=== PATIENT | male | born 1950 | race Caucasian/White ===

== ENCOUNTER 2020-09-18 07:14 | Outpatient (CLI) | payer MEDICARE, SELFPAY ==
[2020-09-18 07:37] LABS: Basophils Percent Auto 0.4 % (0.2-1.2); Eosinophils Absolute Auto 0.3 K/mm3 (0-0.3); Eosinophils Percent Auto 5.1 % (0-4.4); Hematocrit 41.7 % (42.0-52.0); Hemoglobin 14.4 g/dL (14.0-18.0); Immature Granulocyte Absolute 0.01 K/mm3 (0.00-0.031); Immature Granulocyte Percent A 0.2 % (0-0.5); Lymphocytes Absolute Auto 1.66 K/mm3 (0.9-3.2); Lymphocytes Percent Auto 32.7 % (18.3-44.2); Mean Corpuscular HGB Conc 34.5 g/dl (32-36); Mean Corpuscular Volume 95.4 fl (80-100); Monocytes Absolute Auto 0.5 K/mm3 (0.1-0.6); Monocytes Percent Auto 9.1 % (2.6-8.5); Neutrophils Absolute Auto 2.7 K/mm3 (1.3-6.7); Neutrophils Percent Auto 52.5 % (45.5-73.1); Platelet Count Result 207 k/mm3 (150-375); Red Blood Count 4.37 M/mm3 (4.6-6.20); Red Cell Distribution Width 12.6 % (11.5-14.5); White Blood Count 5.1 K/mm3 (4.5-10.0)
[2020-09-18 09:53] LABS: Alanine Aminotransferase 34 U/L (4-50); Albumin Level 4.4 g/dL (3.5-5.1); Alkaline Phosphatase 76 U/L (38-126); Anion Gap 5 mmol/L (8-16); Aspartate Amino Transferase 29 U/L (17-59); Bilirubin,Total 0.6 mg/dL (0.2-1.3); Blood Urea Nitrogen 9 mg/dL (9-20); Calcium 9.4 mg/dL (8.4-10.2); Carbon Dioxide 28 mmol/L (22-30); Chloride 99 mmol/L (98-107); Cholesterol 184 mg/dL (0-200); Estimated Glomerular Filt Rate > 60; Glucose 104 mg/dL (75-110); HDL Direct 73 mg/dL; Potassium 4.6 mmol/L (3.4-5.0); Sodium 132 mmol/L (137-145); Triglycerides 100 mg/dL (<150)
[2020-09-18 10:07] LABS: LDL Cholesterol Direct 95 mg/dL
[2020-09-18 10:36] LABS: Prostate Specific Antigen 0.3 ng/mL (< OR = 4.0)
[2020-09-18 11:30] LABS: Hemoglobin A1C 5.4 % (<5.7)
== END 2020-09-18 07:15 | disposition home or self-care (01) ==
PROVIDERS: PCP Family Medicine; Visit Provider Family Medicine
DX: Z12.5 Encounter for screening for malignant neoplasm of prostate (principal); R73.03 Prediabetes; E78.5 Hyperlipidemia, unspecified; I10 Essential (primary) hypertension
CPT/HCPCS: 36415; 80053; 80061; 83036; 84153; 84443; 85025; G0103

== ENCOUNTER 2021-10-15 07:23 | Outpatient (CLI) | payer MEDICARE, SELFPAY ==
--- NOTE | ~2021-10-15 | CT_ITS ---
EXAMINATION: CT lung screening DATE: 10/15/2021 07:43 INDICATION: Personal history of nicotine dependence, current smoker with 40 to pack year history TECHNIQUE: Computed tomography (CT) of the chest was performed without intravenous contrast. The dose -length product (DLP) was 163.31 mGy-cm. Automated exposure control and iterative reconstruction tech [employer] were employed. COMPARISON: None FINDINGS: There is mild emphysema. There is a 2 mm nodule of the right upper lobe. The lungs are free of focal airspace opacities. There is no pleural effusion or pneumothorax. Changes of prior cardiac surgery are noted. The heart size is normal. There are no pathologically enlarged thoracic lymph node s. Calcified atherosclerosis is noted. There is mild thoracic spondylosis. There is a chronic appeari ng T12 compression fracture. IMPRESSION: 1. Lung-RADS category 2: Benign appearance or behavior. Continue annual screening with noncontrast lo w-dose chest CT in 12 months. Reviewed, dictated and finalized at location B. [employer] IMPRESSION: 1. Lung-RADS category 2: Benign appearance or behavior. Continue annual screeni ng with noncontrast low-dose chest CT in 12 months.
== END 2021-10-15 07:24 | disposition home or self-care (01) ==
LOC: ANHIMG 07:26
PROVIDERS: PCP Family Medicine; Visit Provider Family Medicine
DX: Z12.2 Encounter for screening for malignant neoplasm of respiratory organs (principal); Z87.891 Personal history of nicotine dependence
CPT/HCPCS: 71271

== ENCOUNTER 2021-11-06 06:45 | Outpatient (CLI) | payer MEDICARE, SELFPAY ==
--- NOTE | ~2021-11-06 | MR_ITS ---
EXAMINATION: MR thoracic spine wo con EXAM DATE: 11/06/2021 07:48 INDICATION: Parkinson's Disease,Hx Of Spinal Core Injury TECHNIQUE: Multi-sequential, multiplanar MR images of the thoracic spine were obtained without contra st. Sagittal T1, T2, T2 fat saturation, axial T2 weighted images reviewed. There is no prior study for comparison. FINDINGS: There is moderate to severe C6-7 disc disease, moderate at C5-6. There are small thoracic Schmorl's nodes with overall disc height and vertebral bodies relatively well-maintained except for t he mild chronic T12 compression fracture with anterior wedging. There is a moderate size hemangioma w ithin the T6 vertebral body. Thoracic central canal and neural foramen are widely patent. The spinal cord signal intensity and intrinsic morphology is normal. There is mild to moderate facet arthropathy . Paraspinal soft tissue is unremarkable. IMPRESSION: 1. Mild to moderate thoracic facet arthropathy. 2. Mild T12 anterior wedging. 3. Normal thoracic cord signal. Reviewed, dictated and finalized at location B.
--- NOTE | ~2021-11-06 | MR_ITS ---
EXAMINATION: MR brain/brain stem wo con DATE: 11/06/2021 07:48 INDICATION: Parkinson's disease. TECHNIQUE: Magnetic resonance imaging (MRI) of the brain and brainstem was performed without intraven ous contrast. Sequences included sagittal and axial T1-weighted FSE, axial diffusion-weighted FS EPI, axial T2*-weighted GRE, axial T2-weighted FLAIR Propeller, and axial T2-weighted Propeller. Apparent diffusion coefficient (ADC) maps were created. COMPARISON: Brain MRI 04/13/2019, head CT 04/11/2019 FINDINGS: There is an old infarct in right cerebellum. There are foci of old blood products in the de ep white matter of left frontal lobe. There are scattered areas of nonspecific increased T2-weighted signal intensity in the cerebral white matter. There is no intracranial hemorrhage, acute infarction, or abnormal intracranial mass lesion. The ventricles are normal in size. There is mild mucosal thick ening in the paranasal sinuses. The orbits are normal. There is a trace left mastoid effusion. IMPRESSION: 1. 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 2. Stable mild nonspecific cerebral white matter disease, which likely represents chronic small vesse l ischemic disease. Reviewed, dictated and finalized at location A. IMPRESSION: 1. 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 2. Stable mild nonspecific cerebral white matter disease, which likely represen ts chronic small vessel ischemic disease.
== END 2021-11-06 06:46 | disposition home or self-care (01) ==
PROVIDERS: PCP Family Medicine; Visit Provider Nurse Practitioner Gerontology
DX: Z87.828 Personal history of other (healed) physical injury and trauma (principal); M47.894 Other spondylosis, thoracic region; M48.54XA Collapsed vertebra, not elsewhere classified, thoracic region, initial encounter for fracture; Z86.73 Personal history of transient ischemic attack (TIA), and cerebral infarction without residual deficits; R90.82 White matter disease, unspecified
CPT/HCPCS: 70551; 72146

== ENCOUNTER 2021-12-28 11:47 | Emergency (ER) | payer MEDICARE, SELFPAY ==
--- NOTE | ~2021-12-28 | XR_ITS ---
XR chest 1V portable 12/28/2021 12:39 Indication: Weakness and shortness of breath Procedure: AP portable chest Comparison: 04/11/2019 Findings: There is chronic scarring in the left lower lung. The lungs are hyperinflated which is cons istent with, but not diagnostic of chronic obstructive pulmonary disease. Status post median sternoto my for CABG. No focal air space disease, pulmonary edema, pleural effusion or suspected pneumothorax. Impression: 1: No acute cardiopulmonary disease. Reviewed, dictated and finalized at location B. Impression: 1: No acute cardiopulmonary disease.
[2021-12-28 11:54] VITALS: BP 155/77; PULSE 73; RESP 18; TEMP 37.1; O2SAT 100
--- NOTE | 2021-12-28 12:28 | ECG_ITS ---
Measurements Intervals [place] Rate: 65 P: 17 PA: 161 QRS: -17 QRSD: 99 T: 67 QT: 402 QTc: 419 Interpretive Statements SINUS RHYTHM INCOMPLETE RIGHT BUNDLE BRANCH BLOCK CONSIDER INFERIOR INFARCT, AGE INDETERMINATE BORDERLINE ST-T WAVE ABNORMALITY- HIGH LATERAL LEADS BASELINE ARTIFACT- I, II, III, AVR, AVL, AVF, V1-V6 ABNORMAL ECG Electronically Signed On 12-28-2021 13:05:19 CDT by Carter Fair D.O.
[2021-12-28 13:07] LABS: Alanine Aminotransferase 22 U/L (6-50); Albumin Level 4.4 g/dL (3.5-5.1); Alkaline Phosphatase 68 U/L (38-126); Anion Gap 9 mmol/L (8-16); Aspartate Amino Transferase 27 U/L (17-59); Bilirubin,Total 0.4 mg/dL (0.2-1.3); Blood Urea Nitrogen 12 mg/dL (9-20); Carbon Dioxide 25 mmol/L (22-30); Chloride 95 mmol/L (98-107); Estimated CRCL calculation 66 ml/min; Estimated Glomerular Filt Rate > 60; Glucose 104 mg/dL (65-110); Potassium 4.6 mmol/L (3.4-5.0); Sodium 129 mmol/L (137-145)
[2021-12-28 13:14] LABS: Basophils Percent Auto 0.3 % (0.2-1.2); Eosinophils Absolute Auto 0.1 K/mm3 (0-0.3); Eosinophils Percent Auto 1.7 % (0-4.4); Hematocrit 37.9 % (42.0-52.0); Hemoglobin 13.3 g/dL (14.0-18.0); Immature Granulocyte Absolute 0.03 K/mm3 (0.00-0.031); Immature Granulocyte Percent A 0.5 % (0-0.5); Lymphocytes Absolute Auto 0.81 K/mm3 (0.9-3.2); Lymphocytes Percent Auto 13.8 % (18.3-44.2); Mean Corpuscular HGB Conc 35.1 g/dl (32-36); Mean Corpuscular Hemoglobin 34.1 pg (26-34); Mean Corpuscular Volume 97.2 fl (80-100); Mean Platelet Volume 10.2 fl (7.4-10.4); Monocytes Absolute Auto 0.5 K/mm3 (0.1-0.6); Monocytes Percent Auto 8.7 % (2.6-8.5); Neutrophils Absolute Auto 4.4 K/mm3 (1.3-6.7); Platelet Count Result 185 k/mm3 (150-375); Red Cell Distribution Width 12.5 % (11.5-14.5); White Blood Count 5.9 K/mm3 (4.5-10.0)
--- NOTE | 2021-12-28 13:38 | ED.GENADULT ---
HPI - General Adult General Chief complaint: Weakness Stated complaint: GEN WEAKNESS Time Seen by Provider: 12/28/21 13:36 Source: patient and family Limitations: no limitations History of Present Illness HPI narrative: Patient is 71 years old white male, history of parkinsonism came to the ED by ambulance because of increased frequency of fall in the last few days. Patient had similar history. His neurologist referred him to another specialist of movement disorder who started him on new medication 3 weeks ago called KIM.. Patient denies any injury or any symptoms at this time. He denies any fever, chills, nausea, vomiting, headache, back pain, abdominal pain, chest pain, shortness of breath, nausea or vomiting. Related Data Home Medications Medication Instructions Recorded Confirmed fluticasone propionate 50 2 spray INTRANASAL DAILY 09/13/20 09/18/21 mcg/actuation nasal spray,suspension aspirin [Baby Aspirin] 12/28/21 12/28/21 carbidopa-levodopa [Rytary] cap PO 12/28/21 12/28/21 escitalopram oxalate mg 12/28/21 loratadine 12/28/21 ropinirole mg 12/28/21 Allergies Allergy/AdvReac Type Severity Reaction Status Date / Time carbidopa AdvReac Mild Other Verified 12/28/21 12:00 levodopa AdvReac Mild other Verified 12/28/21 12:00 Review of Systems Review of Systems: All systems reviewed & are unremarkable except as noted in HPI and below PMFSH Past Medical History Medical History Anxiety BPH w/o urinary obs/LUTS CAD in [place] artery Depression Dyslipidemia Environmental allergies Essential (primary) hypertension PAD (peripheral artery disease) Parkinson disease Prediabetes Surgical History Surgical History History of angioplasty of peripheral vessel 2016 -stents in left common iliac artery LLE History of coronary artery bypass graft 2013 History of tonsillectomy Social History Social History Smoking status: Current some day smoker Smoking end date: 08/11/16 Alcohol intake: current Substance use: never Substance use type: does not use Exam Narrative: General appearance: Well-developed, well-nourished Skin: Normal color Head: Normocephalic, nontraumatic Eyes: Clear conjunctiva ENT: Oropharynx normal, ears normal, nose normal Neck: Supple, nontender Chest and respiratory: Airway patent, no respiratory distress, no accessory muscle use Heart: Regular rate/rhythm Abdomen: Soft, nontender, no organomegaly, quiet bowel sounds Vascular: Normal peripheral pulses, normal capillary refill. Musculoskeletal: Stationary tremors Neurologic: Alert and oriented ?3, tremors Course Course Emergency Course: Medication induced movement disorder that is my concern. Vital Signs Vital signs: Vital Signs Temperature 37.1 C 12/28/21 11:54 Pulse Rate 73 12/28/21 11:54 Respiratory Rate 18 12/28/21 11:54 Blood Pressure 155/77 H 12/28/21 11:54 Pulse Oximetry 100 12/28/21 11:54 Temperature 37.1 C 12/28/21 11:54 Pulse Rate 73 12/28/21 11:54 Respiratory Rate 18 12/28/21 11:54 Blood Pressure 155/77 H 12/28/21 11:54 Pulse Oximetry 100 12/28/21 11:54 Medical Decision Making Differential Diagnosis Differential Diagnosis: Electrolyte imbalance, urinary tract infection, intracranial pathology, medication induced movement disorders, advancing parkinsonism Vital Signs Vital Signs: Vital Signs Temperature 37.1 C 12/28/21 11:54 Pulse Rate 73 12/28/21 11:54 Respiratory Rate 18 12/28/21 11:54 Blood Pressure 155/77 H 12/28/21 11:
[2021-12-28 13:55] LABS: Add Urine Microscopic? NO; Appearance Urine Clear (Clear); Bilirubin Urine Negative (Negative); Blood Urine Negative (Negative); Color Urine Yellow (Yellow); Glucose Urine UA Negative (Negative); Ketones Urine Negative (Negative); Leukocyte Esterase Ur Negative LEU/UL (Negative); Nitrate Urine Negative (Negative); Protein Urine Negative (Negative); Specific Grav Ur 1.015 (1.001-1.035); Urobilinogen Urine 0.2 mg/dL (<2.0)
== END 2021-12-28 15:44 | disposition home or self-care (01) ==
PROVIDERS: General Practice; Emergency Provider Emergency Medicine; PCP Family Medicine
DX: G20 Parkinson's disease (principal); I25.10 Atherosclerotic heart disease of native coronary artery without angina pectoris; E78.5 Hyperlipidemia, unspecified; I10 Essential (primary) hypertension; I73.9 Peripheral vascular disease, unspecified; N40.0 Benign prostatic hyperplasia without lower urinary tract symptoms; R73.03 Prediabetes; F41.9 Anxiety disorder, unspecified; Z95.5 Presence of coronary angioplasty implant and graft; Z95.1 Presence of aortocoronary bypass graft; Z87.891 Personal history of nicotine dependence; I45.10 Unspecified right bundle-branch block; R94.31 Abnormal electrocardiogram [ECG] [EKG]; Z79.82 Long term (current) use of aspirin
CPT/HCPCS: 36415; 71045; 80053; 81003; 85025; 93005; 99283

== ENCOUNTER 2022-03-19 10:50 | Outpatient (CLI) | payer MEDICARE, SELFPAY ==
[2022-03-19 19:27] LABS: Alanine Aminotransferase 32 U/L (6-50); Albumin Level 4.9 g/dL (3.5-5.1); Alkaline Phosphatase 77 U/L (38-126); Anion Gap 9 mmol/L (8-16); Aspartate Amino Transferase 39 U/L (17-59); Bilirubin,Total 0.6 mg/dL (0.2-1.3); Blood Urea Nitrogen 12 mg/dL (9-20); Carbon Dioxide 28 mmol/L (22-30); Chloride 93 mmol/L (98-107); Estimated Glomerular Filt Rate > 60; Glucose 84 mg/dL (65-110); Potassium 4.4 mmol/L (3.4-5.0); Sodium 130 mmol/L (137-145)
== END 2022-03-19 10:51 | disposition home or self-care (01) ==
LOC: ANHGOSHLAB 10:52
PROVIDERS: PCP Family Medicine; Visit Provider Family Medicine
DX: E78.5 Hyperlipidemia, unspecified (principal); G20 Parkinson's disease; I10 Essential (primary) hypertension
CPT/HCPCS: 36415; 80053

== ENCOUNTER 2022-07-19 16:08 | Outpatient (CLI) | payer MEDICARE, SELFPAY ==
[2022-07-19 16:55] LABS: Influenza A QL RT-PCR Negative (Negative); Influenza B QL RT-PCR Negative (Negative); RSV RNA, RT-PCR Negative (Negative); SARS-CoV-2 RNA PCR Positive
== END 2022-07-19 16:09 | disposition home or self-care (01) ==
LOC: ANHLAB 16:09
PROVIDERS: PCP Family Medicine; Visit Provider Nurse Practitioner
DX: U07.1 COVID-19 (principal); R68.89 Other general symptoms and signs
CPT/HCPCS: 87637

== ENCOUNTER 2023-01-20 08:01 | Outpatient (CLI) | payer MEDICARE, SELFPAY ==
--- NOTE | ~2023-01-20 | US_ITS ---
EXAMINATION: US art doppler w press LE BI DATE: 01/20/2023 08:39 INDICATION: Peripheral arterial disease. TECHNIQUE: Segmental pressures and plethysmographic and Doppler waveforms of the brachial and lower e xtremity arteries were obtained. COMPARISON: Arterial Doppler and segmental pressures 02/09/2016 FINDINGS: Right and left brachial artery pressures of 149 mm Hg and 153 mm Hg, respectively, are concordant (no rmal difference <= 30 mmHg). The right thigh and below-knee pressures were not measured. The right ankle-brachial index (EUGENE) is 0 .71 (normal >= 0.9-1.0). The right great toe-brachial index (TBI) is 0.58 (normal >= 0.65). Arterial Doppler waveforms are at least triphasic in common femoral artery and biphasic from superficial femor al artery to the ankle. The left thigh and below-knee pressures were not measured. The left EUGENE is 0.74. The left TBI is 0.39 . Arterial Doppler waveforms are biphasic from common femoral artery to the ankle. IMPRESSION: 1. Moderately decreased ABIs with interval worsening on the right and improvement on the left, consis tent with arterial occlusive disease. Reviewed, dictated and finalized at location A. IMPRESSION: 1. Moderately decreased ABIs with interval worsening on the right and improveme nt on the left, consistent with arterial occlusive disease.
== END 2023-01-20 08:02 | disposition home or self-care (01) ==
LOC: ANHIMG 08:06
PROVIDERS: PCP Family Medicine; Visit Provider Internal Medicine Cardiovascular Disease
DX: I73.9 Peripheral vascular disease, unspecified (principal)
CPT/HCPCS: 93923

== ENCOUNTER 2023-09-18 09:57 | Outpatient (CLI) | payer MEDICARE, SELFPAY ==
[2023-09-18 10:40] LABS: Basophils Percent Auto 0.3 % (0.2-1.2); Eosinophils Absolute Auto 0.2 K/mm3 (0-0.3); Eosinophils Percent Auto 2.7 % (0-4.4); Hematocrit 38.2 % (42.0-52.0); Immature Granulocyte Absolute 0.02 K/mm3 (0.00-0.031); Immature Granulocyte Percent A 0.3 % (0-0.5); Lymphocytes Absolute Auto 1.28 K/mm3 (0.9-3.2); Lymphocytes Percent Auto 19.5 % (18.3-44.2); Mean Corpuscular Hemoglobin 33.2 pg (26-34); Mean Corpuscular Volume 97.4 fl (80-100); Mean Platelet Volume 10.1 fl (7.4-10.4); Monocytes Absolute Auto 0.5 K/mm3 (0.1-0.6); Monocytes Percent Auto 7.6 % (2.6-8.5); Neutrophils Absolute Auto 4.6 K/mm3 (1.3-6.7); Neutrophils Percent Auto 69.6 % (45.5-73.1); Platelet Count Result 184 k/mm3 (150-375); Red Blood Count 3.92 M/mm3 (4.6-6.20); Red Cell Distribution Width 12.9 % (11.5-14.5); White Blood Count 6.6 K/mm3 (4.5-10.0)
[2023-09-18 10:47] LABS: Appearance Urine Cloudy (Clear); Bacteria Urine 4+ /hpf; Bilirubin Urine Negative (Negative); Blood Urine Negative (Negative); Color Urine Yellow (Yellow); Glucose Urine UA Negative (Negative); Ketones Urine Trace mg/dL (Negative); Leukocyte Esterase Ur 2+ LEU/UL (Negative); Nitrate Urine Positive (Negative); Non Pathogenic Casts 0-2; Protein Urine Negative (Negative); RBC Urine 0-2 /hpf (0-2); Specific Grav Ur 1.019 (1.001-1.035); Squamous Epithelial Cell Urine None seen /hpf (Few); WBC Urine 51-100 /hpf; pH Urine 6.5 (5.0-9.0)
[2023-09-18 10:51] LABS: Alanine Aminotransferase 19 U/L (6-50); Albumin Level 4.1 g/dL (3.5-5.1); Alkaline Phosphatase 86 U/L (38-126); Anion Gap 6 mmol/L (8-16); Aspartate Amino Transferase 29 U/L (17-59); Bilirubin,Total 0.6 mg/dL (0.2-1.3); Blood Urea Nitrogen 13 mg/dL (9-20); Carbon Dioxide 28 mmol/L (22-30); Chloride 92 mmol/L (98-107); Cholesterol 140 mg/dL (0-200); Estimated Glomerular Filt Rate > 60; Glucose 94 mg/dL (65-110); HDL Direct 75 mg/dL; Potassium 4.4 mmol/L (3.4-5.0); Sodium 126 mmol/L (137-145); Triglycerides 195 mg/dL (<150)
[2023-09-18 10:58] LABS: Hemoglobin A1C 5.6 % (<5.7)
[2023-09-18 11:00] LABS: Add Urine Microscopic? YES
[2023-09-18 11:01] LABS: LDL Cholesterol Direct 54 mg/dL
[2023-09-18 11:21] LABS: Prostate Specific Antigen 0.9 ng/mL (< OR = 4.0)
[2023-09-18 11:25] LABS: Vitamin D 25 Hydroxy 42.8 ng/mL
[2023-09-18 11:38] LABS: Thyroid Stimulating Hormone Reflex 0.772 uIU/mL (0.465-4.68)
== END 2023-09-18 09:58 | disposition home or self-care (01) ==
LOC: ANHLAB 10:02
PROVIDERS: PCP Family Medicine; Visit Provider Family Medicine
DX: E53.8 Deficiency of other specified B group vitamins (principal); Z12.5 Encounter for screening for malignant neoplasm of prostate; I10 Essential (primary) hypertension; E78.5 Hyperlipidemia, unspecified; R73.03 Prediabetes; F32.9 Major depressive disorder, single episode, unspecified; R41.89 Other symptoms and signs involving cognitive functions and awareness; E55.9 Vitamin D deficiency, unspecified; R30.0 Dysuria
CPT/HCPCS: 36415; 80053; 80061; 81001; 82306; 82607; 83036; 84153; 84443; 85025; 87086; G0103

== ENCOUNTER 2023-10-24 16:20 | Outpatient (CLI) | payer MEDICARE, SELFPAY ==
--- NOTE | ~2023-10-24 | US_ITS ---
EXAMINATION: US carotid duplex BI DATE: 10/24/2023 18:46 INDICATION: History of stroke TECHNIQUE: Grayscale, color Doppler, and pulsed Doppler images of the cervical carotid arteries were obtained. The degree of vessel stenosis is placed in one of the following categories: normal, <50%, 5 0-69%, >=70% but less than near-occlusion, near-occlusion, or total occlusion. Note that percent sten osis relative to normal distal artery lumen diameter is indirectly measured from velocity measurement s as described by Wilver, et al. Radiology 2003; 229:340-346. Notes: Normal: Peak systolic velocity <125 centimeters/sec and no plaque <50%. Peak systolic velocity <125 ( EDV <40; ICA/CCA PSV ratio <2.0; used these factors only a tandem lesions or low cardiac output or co ntralateral disease) 50-69 %: PSV 125-230 (EDV 40-100; ratio 2-4) >= 70% but less than near occlusion: PSV greater than 230 (EDV > 100; ratio> 4.0) Near Occlusion: PSV that is variable; markedly narrowed lumen Occlusion: Absent flow on color/spectral Doppler and no lumen on castillo scale. COMPARISON: Ultrasound dated 04/13/2019. FINDINGS: RIGHT: The right common carotid artery (CCA) peak systolic velocity (PSV) is 96 cm/s. The right internal car otid artery (ICA) PSV is 87 cm/s. The right ICA end-diastolic velocity (EDV) is 17 cm/s. The right IC A/CCA PSV ratio is 1.2. The external carotid artery (ECA) PSV is 151 cm/s. There is antegrade flow in the right vertebral artery. LEFT: The left CCA PSV is 71 cm/s. The left ICA PSV is 85 cm/s. The left ICA EDV is 18 cm/s. The left ICA/C CA PSV ratio is 1.6. The ECA PSV is 251 cm/s. There is antegrade flow in the left vertebral artery. IMPRESSION: 1. Less than 50% stenosis in the right internal carotid artery by sonographic criteria. 2. Less than 50% stenosis in the left internal carotid artery by sonographic criteria. Reviewed, dictated and finalized at location A. IMPRESSION: 1. Less than 50% stenosis in the right internal carotid artery by sonographic c loc. 2. Less than 50% stenosis in the left internal carotid artery by sonographic craig ayoub.
== END 2023-10-24 16:21 | disposition home or self-care (01) ==
PROVIDERS: PCP Family Medicine; Visit Provider Nurse Practitioner Gerontology
DX: I65.23 Occlusion and stenosis of bilateral carotid arteries (principal); Z86.73 Personal history of transient ischemic attack (TIA), and cerebral infarction without residual deficits
CPT/HCPCS: 93880

== ENCOUNTER 2023-10-28 06:46 | Outpatient (CLI) | payer MEDICARE, SELFPAY ==
--- NOTE | ~2023-10-28 | MR_ITS ---
EXAMINATION: MRA neck wo/w con DATE: 10/28/2023 07:59 INDICATION: Stroke. Dizziness and giddiness. TECHNIQUE: Magnetic resonance angiography (MRA) of the neck was performed without and with 19 mL Mult ihance intravenous contrast. Sequences included axial 2D-time of flight T1-weighted FSPGR and coronal T1-weighted FSPGR without and with intravenous contrast. COMPARISON: None. FINDINGS: There is small amount of atherosclerosis but with 0% stenosis of the right carotid bulb relative to n ormal distal artery lumen diameter (NASCET criteria). There is 40% stenosis of the left carotid bulb relative to normal distal artery lumen diameter. IMPRESSION: 1. Small amount of atherosclerotic plaque with 0% stenosis of the right carotid bulb relative to norm al distal artery lumen diameter (NASCET criteria). 2. 40% stenosis of the left carotid bulb relative to normal distal artery lumen diameter. Reviewed, dictated and finalized at location A. IMPRESSION: 1. Small amount of atherosclerotic plaque with 0% stenosis of the right carotid bulb relative to normal distal artery lumen diameter (NASCET criteria). 2. 40% stenosis of the left carotid bulb relative to normal distal artery lumen diameter.
--- NOTE | ~2023-10-28 | MR_ITS ---
MRA HEAD History: Dizziness Technique: 3D time of flight MRA of the head is performed. Findings: The right and left distal vertebral arteries and the basilar and posterior cerebral arterie s are normal. Right and left distal internal carotid arteries and anterior and middle cerebral arteri es are normal. There is no aneurysm, stenosis, or occlusion. Impression: No occlusion, stenosis, or aneurysm. Reviewed, dictated and finalized at location . Impression: No occlusion, stenosis, or aneurysm.
== END 2023-10-28 06:47 | disposition home or self-care (01) ==
PROVIDERS: PCP Family Medicine; Visit Provider Nurse Practitioner Gerontology
DX: I65.22 Occlusion and stenosis of left carotid artery (principal); R40.4 Transient alteration of awareness; Z86.73 Personal history of transient ischemic attack (TIA), and cerebral infarction without residual deficits
CPT/HCPCS: 70544; 70549; A9577

== ENCOUNTER 2023-12-22 13:22 | Outpatient (CLI) | payer MEDICARE, SELFPAY ==
[2023-12-22 14:24] LABS: Basophils Percent Auto 0.5 % (0.2-1.2); Eosinophils Absolute Auto 0.2 K/mm3 (0-0.3); Eosinophils Percent Auto 3.2 % (0-4.4); Hematocrit 38.8 % (42.0-52.0); Hemoglobin 13.2 g/dL (14.0-18.0); Immature Granulocyte Absolute 0.02 K/mm3 (0.00-0.031); Immature Granulocyte Percent A 0.3 % (0-0.5); Lymphocytes Absolute Auto 1.74 K/mm3 (0.9-3.2); Lymphocytes Percent Auto 26.5 % (18.3-44.2); Mean Corpuscular Hemoglobin 32.9 pg (26-34); Mean Corpuscular Volume 96.8 fl (80-100); Mean Platelet Volume 10.5 fl (7.4-10.4); Monocytes Absolute Auto 0.5 K/mm3 (0.1-0.6); Monocytes Percent Auto 8.2 % (2.6-8.5); Neutrophils Percent Auto 61.3 % (45.5-73.1); Platelet Count Result 189 k/mm3 (150-375); Red Blood Count 4.01 M/mm3 (4.6-6.20); Red Cell Distribution Width 12.2 % (11.5-14.5); White Blood Count 6.6 K/mm3 (4.5-10.0)
[2023-12-22 14:39] LABS: Alanine Aminotransferase 9 U/L (6-50); Albumin Level 4.5 g/dL (3.5-5.1); Alkaline Phosphatase 65 U/L (38-126); Anion Gap 7 mmol/L (4-12); Aspartate Amino Transferase 24 U/L (17-59); Bilirubin,Total 0.6 mg/dL (0.2-1.3); Blood Urea Nitrogen 13 mg/dL (9-20); Calcium 9.4 mg/dL (8.4-10.2); Carbon Dioxide 26 mmol/L (22-30); Chloride 96 mmol/L (98-107); Estimated Glomerular Filt Rate > 60; Glucose 91 mg/dL (65-110); Potassium 4.3 mmol/L (3.4-5.0); Sodium 129 mmol/L (137-145)
== END 2023-12-22 13:23 | disposition home or self-care (01) ==
LOC: ANHLAB 13:24
PROVIDERS: PCP Family Medicine; Visit Provider Internal Medicine Cardiovascular Disease
DX: Z01.812 Encounter for preprocedural laboratory examination (principal); I25.10 Atherosclerotic heart disease of native coronary artery without angina pectoris; I73.9 Peripheral vascular disease, unspecified
CPT/HCPCS: 36415; 80053; 85025

== ENCOUNTER 2024-04-01 10:59 | Outpatient (CLI) | payer MEDICARE, SELFPAY ==
--- NOTE | ~2024-04-01 | XR_ITS ---
EXAM: XR shoulder LT min 2V DATE: 04/01/2024 11:32 HISTORY: M25.512 - Pain in left shoulder . COMPARISON: None available. FINDINGS: Normal mineralization. No fracture or dislocation. No lytic or blastic lesion. Mild AC reynaldo nt and mild glenohumeral joint degenerative change. No erosion or periosteal change. Soft tissues wit hin normal limits. Basilar calcifications. Calcification at the base of the glenoid labrum/biceps anc hor. IMPRESSION: Mild polyarticular left shoulder osteoarthritis. Reviewed, dictated and finalized at location K.
--- NOTE | ~2024-04-01 | XR_ITS ---
EXAMINATION: XR ribs LT 2V w CXR 2V DATE: 04/01/2024 11:31 INDICATION: Pleurodynia. TECHNIQUE: Frontal and lateral views of the chest and 2 views on 3 radiographs of the left ribs were obtained. COMPARISON: Chest view 12/28/2021 FINDINGS: CHEST TWO VIEWS: There is mild striated scarring in left mid and lower lung zones. There is no pneumo taya, pleural effusion, or pneumothorax. The heart size is normal. Median sternotomy wires and mediast inal surgical clips are seen, likely from prior coronary artery bypass grafting. LEFT RIBS: There is no rib fracture. IMPRESSION: 1. No rib fracture. 2. Chronic mild striated scarring in left mid and lower lung zones. Reviewed, dictated and finalized at location A.
== END 2024-04-01 11:00 ==
PROVIDERS: PCP Family Medicine; Visit Provider Family Medicine
DX: R07.81 Pleurodynia (principal); R91.8 Other nonspecific abnormal finding of lung field; M19.012 Primary osteoarthritis, left shoulder; M25.512 Pain in left shoulder
CPT/HCPCS: 71046; 71100; 73030

== ENCOUNTER 2024-04-05 10:54 | Outpatient (CLI) | payer MEDICARE, SELFPAY | END 2024-04-05 10:55 | disposition home or self-care (01) | LOC: ANHLAB 10:57 | PROVIDERS: PCP Family Medicine; Visit Provider Family Medicine | DX: N39.0 Urinary tract infection, site not specified (principal) | CPT/HCPCS: 87086 ==

== ENCOUNTER 2024-05-24 09:48 | Outpatient (CLI) | payer MEDICARE, SELFPAY ==
[2024-05-24 10:16] LABS: Basophils Percent Auto 0.5 % (0.2-1.2); Eosinophils Absolute Auto 0.2 K/mm3 (0-0.3); Eosinophils Percent Auto 2.6 % (0-4.4); Hematocrit 40.2 % (42.0-52.0); Hemoglobin 13.9 g/dL (14.0-18.0); Immature Granulocyte Absolute 0.02 K/mm3 (0.00-0.031); Immature Granulocyte Percent A 0.3 % (0-0.5); Lymphocytes Absolute Auto 1.08 K/mm3 (0.9-3.2); Lymphocytes Percent Auto 16.8 % (18.3-44.2); Mean Corpuscular HGB Conc 34.6 g/dl (32-36); Mean Corpuscular Hemoglobin 33.5 pg (26-34); Mean Corpuscular Volume 96.9 fl (80-100); Mean Platelet Volume 10.4 fl (7.4-10.4); Monocytes Absolute Auto 0.5 K/mm3 (0.1-0.6); Neutrophils Absolute Auto 4.7 K/mm3 (1.3-6.7); Neutrophils Percent Auto 72.8 % (45.5-73.1); Platelet Count Result 174 k/mm3 (150-375); Red Blood Count 4.15 M/mm3 (4.6-6.20); Red Cell Distribution Width 12.4 % (11.5-14.5); White Blood Count 6.4 K/mm3 (4.5-10.0)
[2024-05-24 10:30] LABS: Alanine Aminotransferase 6 U/L (6-50); Albumin Level 4.5 g/dL (3.5-5.1); Alkaline Phosphatase 66 U/L (38-126); Anion Gap 8 mmol/L (4-12); Aspartate Amino Transferase 20 U/L (17-59); Bilirubin,Total 0.8 mg/dL (0.2-1.3); Blood Urea Nitrogen 12 mg/dL (9-20); Calcium 9.3 mg/dL (8.4-10.2); Carbon Dioxide 28 mmol/L (22-30); Chloride 95 mmol/L (98-107); Cholesterol 141 mg/dL (0-200); Estimated Glomerular Filt Rate > 60; Glucose 102 mg/dL (65-110); HDL Direct 67 mg/dL; Potassium 4.2 mmol/L (3.4-5.0); Sodium 131 mmol/L (137-145); Triglycerides 105 mg/dL (<150)
[2024-05-24 10:33] LABS: Hemoglobin A1C 5.7 % (<5.7)
[2024-05-24 10:40] LABS: LDL Cholesterol Direct 44 mg/dL
[2024-05-24 11:00] LABS: Prostate Specific Antigen 1.3 ng/mL (< OR = 4.0)
[2024-05-24 11:02] LABS: Vitamin D 25 Hydroxy 37.7 ng/mL
[2024-05-24 11:15] LABS: Thyroid Stimulating Hormone Reflex 0.892 uIU/mL (0.465-4.68)
== END 2024-05-24 09:49 | disposition home or self-care (01) ==
LOC: ANHLAB 09:54
PROVIDERS: PCP Family Medicine; Visit Provider Family Medicine
DX: G20.A1 Parkinson's disease without dyskinesia, without mention of fluctuations (principal); E55.9 Vitamin D deficiency, unspecified; E53.8 Deficiency of other specified B group vitamins; I10 Essential (primary) hypertension; E78.5 Hyperlipidemia, unspecified; R73.9 Hyperglycemia, unspecified; Z12.5 Encounter for screening for malignant neoplasm of prostate; Z00.00 Encounter for general adult medical examination without abnormal findings
CPT/HCPCS: 36415; 80053; 80061; 82306; 82607; 83036; 84153; 84443; 85025; G0103

== ENCOUNTER 2024-07-06 11:15 | Emergency (ER) | payer MEDICARE, SELFPAY ==
[2024-07-06] VITALS (7 sets, daily range): BP systolic 109–143; BP diastolic 67–91; PULSE 52–67; RESP 12–20; TEMP 36.7; O2SAT 98–100
--- NOTE | ~2024-07-06 | XR_ITS ---
EXAMINATION: XR chest 2V DATE: 07/06/2024 12:28 INDICATION: Shortness of breath TECHNIQUE: frontal and lateral views of the chest were obtained. COMPARISON: Chest radiograph dated 04/01/[address] dated 10/15/2021 FINDINGS: Chronic linear opacities at the left lower lung zone at the medial right lung base consistent with ch ronic atelectasis/scarring. No new airspace opacities, pulmonary edema, pleural effusion or pneumotho rax. The cardiomediastinal silhouette is normal. Median sternotomy wires and mediastinal surgical cli ps are seen, likely from prior coronary artery bypass grafting. IMPRESSION: 1. Stable appearance of chronic linear discoid atelectasis/scarring at the bilateral lower lung zones , left greater than right. No acute cardiopulmonary disease. Reviewed, dictated and finalized at location A. AL THERAPIST IMPRESSION: 1. Stable appearance of chronic linear discoid atelectasis/scarring at the bila teral lower lung zones, left greater than right. No acute cardiopulmonary disea se.
--- NOTE | 2024-07-06 11:23 | ECG_ITS ---
Test Date: 2024-07-06 11:22:14 Measurements Intervals [place] Rate: 66 P: 0 AK: 0 QRS: -7 QRSD: 94 T: 62 QT: 400 QTc: 420 Interpretive Statements SINUS RHYTHM INCOMPLETE RIGHT BUNDLE BRANCH BLOCK BORDERLINE ST-T WAVE ABNORMALITY- HIGH LATERAL LEADS BASELINE ARTIFACT- I, II, III, AVR, AVL, AVF, V1-V6 BORDERLINE ECG No previous ECG available for comparison Electronically Signed On 07-06-2024 16:23:04 MOLDER by Carter Fair D.O.
[2024-07-06 12:57] LABS: Basophils Percent Auto 0.2 % (0.2-1.2); Eosinophils Absolute Auto 0.2 K/mm3 (0-0.3); Eosinophils Percent Auto 3.9 % (0-4.4); Hematocrit 36.2 % (42.0-52.0); Hemoglobin 12.4 g/dL (14.0-18.0); Immature Granulocyte Absolute 0.02 K/mm3 (0.00-0.031); Immature Granulocyte Percent A 0.3 % (0-0.5); Lymphocytes Absolute Auto 1.12 K/mm3 (0.9-3.2); Lymphocytes Percent Auto 18.2 % (18.3-44.2); Mean Corpuscular HGB Conc 34.3 g/dl (32-36); Mean Corpuscular Hemoglobin 32.7 pg (26-34); Mean Corpuscular Volume 95.5 fl (80-100); Mean Platelet Volume 10.3 fl (7.4-10.4); Monocytes Absolute Auto 0.5 K/mm3 (0.1-0.6); Monocytes Percent Auto 8.1 % (2.6-8.5); Neutrophils Absolute Auto 4.3 K/mm3 (1.3-6.7); Neutrophils Percent Auto 69.3 % (45.5-73.1); Platelet Count Result 169 k/mm3 (150-375); Red Blood Count 3.79 M/mm3 (4.6-6.20); White Blood Count 6.1 K/mm3 (4.5-10.0)
[2024-07-06 12:59] LABS: Add Urine Microscopic? NO; Appearance Urine Clear (Clear); Bilirubin Urine Negative (Negative); Blood Urine Negative (Negative); Color Urine Yellow (Yellow); Glucose Urine UA Negative (Negative); Ketones Urine Trace mg/dL (Negative); Leukocyte Esterase Ur Negative LEU/UL (Negative); Nitrate Urine Negative (Negative); Protein Urine Negative (Negative); Specific Grav Ur 1.015 (1.001-1.035); Urobilinogen Urine 0.2 mg/dL (<2.0); pH Urine 6.5 (5.0-9.0)
--- NOTE | 2024-07-06 13:01 | ED.GENADULT ---
HPI - General Adult General Chief complaint: Shortness of Breath/Dyspnea Stated complaint: SOB Time Seen by Provider: 07/06/24 12:04 History of Present Illness HPI narrative: Patient is a 74-year-old male who presents ER with reports of low oxygen saturation at his house. Reports he has no symptoms related to this. Reports chronic smoker's cough. No fevers or chills or sweats. No chest pain. He denies any abdominal discomfort. Reports he had some burning urination yesterday but not today. He is unsure why he is here otherwise. He thinks they were taking a blood pressure on the same arm as his pulse oximeter. Related Data Home Medications Medication Instructions Recorded Confirmed carbidopa ER 23.75 mg-levodopa 95 2 cap PO TID 02/19/23 04/13/24 mg capsule,extended release (Rytary) atorvastatin 80 mg tablet 80 mg PO QHS 03/27/23 04/13/24 fludrocortisone 0.1 mg tablet 0.1 mg PO DAILY 10/02/23 04/13/24 multivitamin (Daily Multi-Vitamin 1 tablet PO DAILY 10/02/23 04/13/24 tablet) aspirin 81 mg tablet,delayed 81 mg PO DAILY 10/16/23 04/13/24 release (Adult Low Dose Aspirin) oxybutynin chloride 10 mg 10 mg PO DAILY 10/16/23 04/13/24 tablet,extended release 24 hr trihexyphenidyl 2 mg tablet 1 mg PO DAILY 10/16/23 04/13/24 fluticasone propionate 50 2 spray intranasal DAILY PRN 04/13/24 04/13/24 mcg/actuation nasal spray,suspension (Flonase Allergy Relief) Allergies Allergy/AdvReac Type Severity Reaction Status Date / Time carbidopa AdvReac Mild Other Verified 04/13/24 09:21 levodopa AdvReac Mild other Verified 04/13/24 09:21 Review of Systems Review of Systems: All systems reviewed & are unremarkable except as noted in HPI and below Constitutional: Constitutional: Reports no additional constitutional complaints ENT: Reports system reviewed and no additional complaints, except as documented Cardiovascular: Cardiovascular: Reports no additional cardiovascular complaints Respiratory: Respiratory: Reports no additional respiratory complaints Gastrointestinal: Gastrointestinal: Reports no additional gastrointestinal complaints PMFSH Past Medical History Medical History Anxiety BPH w/o urinary obs/LUTS CAD in [place] artery Chronic hyponatremia Dementia Depression Dyslipidemia Environmental allergies Essential (primary) hypertension History of colon polyps PAD (peripheral artery disease) Parkinson disease Prediabetes Surgical History Surgical History History of angioplasty of peripheral vessel 2016 -stents in left common iliac artery LLE History of coronary artery bypass graft 2012 History of tonsillectomy (Unknown) Social History Social History Smoking packs per day: 0.25 Smoking cigarettes per day: 5.0 Years smoked: 50 Smoking pack-years: 12.50 Smoking status: Current every day smoker Tobacco type: cigarettes Smoking end date: 08/11/16 Alcohol intake: current Substance use: never Substance use type: does not use Do You Feel Safe in your Home?: Yes Lack of Transportation: YES Lack of Food: Never True Current Housing: I Do Not Have Housing Concerned About Future Housing: No Difficulty Paying Gas/Electric Bills: No Difficulty Paying for Meds: No Currently Unemployed: No Education: Decline to Answer Difficulty w/ Childcare or Family Care: No Living arrangements: with family Occupation/Education: retired Gender identity (if verbalized by the patient): Male Sexual Orientation (if Verbalized by the Patient): Straight or Heterosexual Exam Narrative: GENERAL: Well-appearing, well-nourished, and in no acute distress. HEAD: Normocephalic, atraumatic. ENT: Mucous membranes moist. CHEST: Clear to auscultation. No respiratory distress. HEART: Regular rate and rhythm. Normal peripheral pulses. ABDOMEN: Soft, nontender, nondistended. EXTREMITIES: Normal range of motion. No edema. SKIN: Warm, dry, no rash. NEURO: Mildly tremulous due to Parkinson's. Alert and oriented x3. PSYCH: Normal mood and affect. Course Course Emergency Course: Unremarkable evaluation. Discharge back to Home. Vital Signs Vital signs: Vital Signs Temperature 98.0 F 07/06/24 11:17 Pulse Rate 67 07/06/24 11:17 Respiratory Rate 12 07/06/24 11:17 Blood Pressure 110/67 07/06/24 11:17 Pulse Oximetry 100 07/06/24 11:17 Oxygen Delivery Room Air 07/06/24 11:17 Temperature 98.0 F 07/06/24 11:17 Pulse Rate 61 07/06/24 15:08 Respiratory Rate 20 07/06/24 15:08 Blood Pressure 142/78 H 07/06/24 15:08 Pulse Oximetry 99 07/06/24 15:08 Oxygen Delivery Room Air 07/06/24 12:57 Medical Decision Making Vital Signs Vital Signs: Vital Signs Temperature 98.0 F 07/06/24 11:17 Pulse Rate 67 07/06/24 11:17 Respiratory Rate 12 07/06/24 11:17 Blood Pressure 110/67 07/06/24 11:17 Pulse Oximetry 100 07/06/24 11:17 Oxygen Delivery Room Air 07/06/24 11:17 Temperature 98.0 F 07/06/24 11:17 Pulse Rate 61 07/06/24 15:08 Respiratory Rate 20 07/06/24 15:08 Blood Pressure 142/78 H 07/06/24 15:08 Pulse Oximetry 99 07/06/24 15:08 Oxygen Delivery Room Air 07/06/24 12:57 Lab Data 07/06/24 12:48 07/06/24 12:48 Labs: Lab Results 07/06/24 Range/Units 12:48 WBC 6.1 (4.5-10.0) K/mm3 RBC 3.79 L (4.6-6.20) M/mm3 Hgb 12.4 L (14.0-18.0) g/dL Hct 36.2 L (42.0-52.0) % MCV 95.5 (80-100) fl MCH 32.7 (26-34) pg MCHC 34.3 (32-36) g/dl RDW 12.0 (11.5-14.5) % Plt Count 169 (150-375) k/mm3 MPV 10.3 (7.4-10.4) fl Immature Gran % (Auto) 0.3 (0-0.5) % Neut % (Auto) 69.3 (45.5-73.1) % Lymph % (Auto) 18.2 L (18.3-44.2) % [place] % (Auto) 8.1 (2.6-8.5) % Eos % (Auto) 3.9 (0-4.4) % Baso % (Auto) 0.2 (0.2-1.2) % Lymph # (Auto) 1.12 (0.9-3.2) K/mm3 [place] # (Auto) 0.5 (0.1-0.6) K/mm3 Eos # (Auto) 0.2 (0-0.3) K/mm3 Baso # (Auto) 0.0 (0.0-0.1) K/mm3 Abs Immat Gran (auto) 0.02 (0.00-0.031) K/mm3 Absolute Neuts (auto) 4.3 (1.3-6.7) K/mm3 Absolute Nucleated RBC 0.000 (0.0-0.012) K/mm3 Nucleated RBC % 0.0 (0.0-0.2) % Sodium 130 L (137-145) mmol/L Potassium 4.4 (3.4-5.0) mmol/L Chloride 98 (98-107) mmol/L Carbon Dioxide 28 (22-30) mmol/L Anion Gap 4 (4-12) mmol/L BUN 14 (9-20) mg/dL Creatinine 0.80 (0.7-1.3) mg/dL Estim Creat Clear Calc 80 ml/min Estimated GFR > 60 (59 - ) Glucose 89 (65-110) mg/dL Calcium 8.8 (8.4-10.2) mg/dL Total Bilirubin 0.7 (0.2-1.3) mg/dL AST 20 (17-59) U/L ALT 8 (6-50) U/L Alkaline Phosphatase 79 (38-126) U/L Total Protein 7.0 (6.3-8.2) g/dL Albumin 3.9 (3.5-5.1) g/dL Urine Color Yellow (Yellow) Urine Appearance Clear (Clear) Urine pH 6.5 (5.0-9.0) Ur Specific [place] 1.015 (1.001-1.035) Urine Protein Negative (Negative) mg/dL Urine Glucose (UA) Negative (Negative) mg/dL Urine Ketones Trace H (Negative) mg/dL Ur Blood (Man) Negative (Negative) Urine Nitrate Negative (Negative) Urine Bilirubin Negative (Negative) Urine Urobilinogen 0.2 (<2.0) mg/dL Leukocyte Esterase Rfl Negative (Negative) KALINA/UL Discharge Plan Discharge Clinical Impression: Normal exam Patient Disposition: Home, Self-Care Condition: Stable Instructions: Normal Exam (ED) Additional Instructions: Return ER if you have fever 100.4? F, you cannot keep down food water, or you have additional concerns. Prescriptions: No Action Rytary 23.75-95 mg capsule, extended release 2 cap PO TID Rx Instructions: divide evenly over waking hours fludrocortisone 0.1 mg tablet 0.1 mg PO DAILY multivitamin [Daily Multi-Vitamin] Tablet 1 tablet PO DAILY aspirin [Adult Low Dose Aspirin] 81 mg tablet,delayed release (DR/EC) 81 mg PO DAILY oxybutynin chloride 10 mg tablet extended release 24hr 10 mg PO DAILY trihexyphenidyl 2 mg tablet 1 mg PO DAILY fluticasone propionate [Flonase Allergy Relief] 50 mcg/actuation spray,suspension 2 spray intranasal DAILY PRN Rx Instructions: administer into each nostril sodium chloride 1,000 mg tablet,soluble 1,000 mg PO DAILY Qty: 90 1RF Rexulti 0.25 mg tablet 0.25 mg PO DAILY Qty: 30 0RF atorvastatin 80 mg tablet 80 mg PO QHS Rx Instructions: PRESCRIBED BY CARDIOLOGY cyanocobalamin (vitamin B-12) 1,000 mcg tablet, sublingual 1,000 mcg sublingual DAILY Qty: 90 1RF lisinopril 40 mg tablet 40 mg PO DAILY Qty: 100 1RF finasteride 5 mg tablet 5 mg PO DAILY Qty: 100 1RF escitalopram oxalate [Lexapro] 20 mg tablet 20 mg PO DAILY Qty: 90 1RF tamsulosin 0.4 mg capsule 0.4 mg PO QHS Qty: 90 1RF metoprolol tartrate 25 mg tablet 25 mg PO BID Qty: 180 1RF ciprofloxacin HCl 500 mg tablet 500 mg PO Q12H Qty: 20 0RF Follow-up/Referrals: Perry Parker MD [Primary Care Provider] - 1 Week
[2024-07-06 13:06] LABS: Alanine Aminotransferase 8 U/L (6-50); Albumin Level 3.9 g/dL (3.5-5.1); Alkaline Phosphatase 79 U/L (38-126); Anion Gap 4 mmol/L (4-12); Aspartate Amino Transferase 20 U/L (17-59); Bilirubin,Total 0.7 mg/dL (0.2-1.3); Blood Urea Nitrogen 14 mg/dL (9-20); Calcium 8.8 mg/dL (8.4-10.2); Carbon Dioxide 28 mmol/L (22-30); Chloride 98 mmol/L (98-107); Estimated CRCL calculation 80 ml/min; Estimated Glomerular Filt Rate > 60; Glucose 89 mg/dL (65-110); Potassium 4.4 mmol/L (3.4-5.0); Sodium 130 mmol/L (137-145)
== END 2024-07-06 16:00 | disposition home or self-care (01) ==
PROVIDERS: Student in an Organized Health Care Education/Training Program; Emergency Provider Emergency Medicine; PCP Family Medicine
DX: Z03.89 Encounter for observation for other suspected diseases and conditions ruled out (principal); F03.90 Unspecified dementia, unspecified severity, without behavioral disturbance, psychotic disturbance, mood disturbance, and anxiety; I25.10 Atherosclerotic heart disease of native coronary artery without angina pectoris; I10 Essential (primary) hypertension; I73.9 Peripheral vascular disease, unspecified; E78.5 Hyperlipidemia, unspecified; E87.1 Hypo-osmolality and hyponatremia; G20.A1 Parkinson's disease without dyskinesia, without mention of fluctuations; J41.0 Simple chronic bronchitis; N40.0 Benign prostatic hyperplasia without lower urinary tract symptoms; R73.03 Prediabetes; Z95.5 Presence of coronary angioplasty implant and graft; Z95.1 Presence of aortocoronary bypass graft; Z86.0100 Personal history of colon polyps, unspecified; Z87.891 Personal history of nicotine dependence; Z79.899 Other long term (current) drug therapy; I45.10 Unspecified right bundle-branch block; R94.31 Abnormal electrocardiogram [ECG] [EKG]
CPT/HCPCS: 36415; 71046; 80053; 81003; 85025; 93005; 99284

== ENCOUNTER 2024-10-11 09:56 | Outpatient (CLI) | payer MEDICARE, SELFPAY ==
[2024-10-11 13:59] LABS: Basophils Percent Auto 0.3 % (0.2-1.2); Eosinophils Absolute Auto 0.1 K/mm3 (0-0.3); Hematocrit 38.8 % (42.0-52.0); Hemoglobin 13.1 g/dL (14.0-18.0); Immature Granulocyte Absolute 0.03 K/mm3 (0.00-0.031); Immature Granulocyte Percent A 0.5 % (0-0.5); Lymphocytes Absolute Auto 0.92 K/mm3 (0.9-3.2); Mean Corpuscular HGB Conc 33.8 g/dl (32-36); Mean Corpuscular Hemoglobin 32.6 pg (26-34); Mean Corpuscular Volume 96.5 fl (80-100); Mean Platelet Volume 10.8 fl (7.4-10.4); Monocytes Absolute Auto 0.4 K/mm3 (0.1-0.6); Monocytes Percent Auto 7.2 % (2.6-8.5); Neutrophils Absolute Auto 4.6 K/mm3 (1.3-6.7); Platelet Count Result 180 k/mm3 (150-375); Red Blood Count 4.02 M/mm3 (4.6-6.20); Red Cell Distribution Width 12.9 % (11.5-14.5); White Blood Count 6.2 K/mm3 (4.5-10.0)
[2024-10-11 15:08] LABS: Alanine Aminotransferase 27 U/L (6-50); Albumin Level 4.3 g/dL (3.5-5.1); Alkaline Phosphatase 77 U/L (38-126); Anion Gap 9 mmol/L (4-12); Aspartate Amino Transferase 37 U/L (17-59); Bilirubin,Total 0.7 mg/dL (0.2-1.3); Blood Urea Nitrogen 11 mg/dL (9-20); Calcium 9.1 mg/dL (8.4-10.2); Carbon Dioxide 27 mmol/L (22-30); Chloride 95 mmol/L (98-107); Estimated Glomerular Filt Rate > 60; Glucose 94 mg/dL (65-110); Potassium 4.1 mmol/L (3.4-5.0); Sodium 131 mmol/L (137-145)
[2024-10-11 18:15] LABS: Hemoglobin A1C 5.6 % (<5.7)
[2024-10-11 19:36] LABS: Iron 88 ug/dL (49-181)
[2024-10-11 19:46] LABS: Percent Iron Saturation 26 % (20-50)
== END 2024-10-11 09:57 | disposition home or self-care (01) ==
PROVIDERS: PCP Family Medicine; Visit Provider Family Medicine
DX: D64.9 Anemia, unspecified (principal); I10 Essential (primary) hypertension; R73.03 Prediabetes
CPT/HCPCS: 36415; 80053; 82728; 83036; 83540; 83550; 85025

== ENCOUNTER 2024-11-20 08:02 | Observation (INO) | payer MEDICARE, SELFPAY ==
--- NOTE | ~2024-11-20 | XR_ITS ---
EXAM/PROCEDURE: XR chest 1V portable - 11/20/2024 08:25 CDT HISTORY: 74 years old Male with Fall TECHNIQUE: Two view(s) of the chest. COMPARISON: 07/06/2024 FINDINGS: LUNGS/ PLEURA: No focal consolidation. No appreciable pneumothorax or large pleural effusion. HEART/ MEDIASTINUM: Cardiomediastinal silhouette is unchanged. Findings of prior median sternotomy ar e noted. BONES: No acute osseous abnormality. OTHER: Visualized upper abdomen is unremarkable. IMPRESSION: No acute process. Reviewed, dictated and finalized at location A. IMPRESSION: No acute process.
--- NOTE | ~2024-11-20 | XR_ITS ---
EXAM/ PROCEDURE: XR ankle LT 2V - 11/20/2024 08:25 CDT HISTORY: 74 years old Male with Fall COMPARISON: None available TECHNIQUE: Two view(s) FINDINGS/ IMPRESSION: There are no fractures or dislocations.Joint spaces are within normal limits Reviewed, dictated and finalized at location A.
--- NOTE | ~2024-11-20 | XR_ITS ---
EXAM/ PROCEDURE: XR pelvis 1-2V - 11/20/2024 08:25 CDT HISTORY: 74 years old Male with Fall COMPARISON: None available TECHNIQUE: One view(s) FINDINGS/ IMPRESSION: There are no fractures or dislocations.Joint space narrowing, subchondral sclerosis, subchondral cyst formation and osteophyte formation, compatible with moderate osteoarthritis. Reviewed, dictated and finalized at location A.
[2024-11-20 08:10] VITALS: BP 170/109; PULSE 106; RESP 16; TEMP 37.1; O2SAT 96
--- OUTSIDE RECORDS SUMMARY | 2024-11-20 08:18 | XMS_ITS | Clinical Summary ---
Author Organization [facility] [address] Address [address] [place] [address] Care Team Providers Care Certified Personal Trainer Name Role Phone Gabriella Parker MD Primary Care Provider Allergies No known active allergies Medications finasteride (PROSCAR) 5 mg tablet Take 1 tablet (5 mg total) by mouth daily 06/14/20 19 Active metoprolol (LOPRESSOR) 25 mg tablet Take 1 tablet (25 mg total) by mouth 2 (two) times a day 06/15/20 19 Active aspirin 81 mg capsule Take 1 tablet by mouth daily 09/11/19 16 Active lisinopriL (PRINIVIL,ZESTRIL) 40 mg tablet Take 1 tablet (40 mg total) by mouth nightly 12/17/19 21 Active multivit,calc,min/ FA/K1/lycop (ONE-A-DAY MEN'S COMPLETE ORAL) Take 1 tablet by mouth daily Active ipratropium (ATROVENT) 42 mcg (0.06 %) nasal spray Administer 2 sprays into each nostril daily 10/20/19 22 Active oxyBUTYnin XL (DITROPAN-XL) 10 mg 24 hr tablet Take 1 tablet (10 mg total) by mouth daily 11/08/19 24 Active escitalopram (LEXAPRO) 20 mg tablet Take 1 tablet (20 mg total) by mouth daily 10/16/19 24 Active atorvastatin (LIPITOR) 80 mg tablet Take 1 tablet by mouth nightly 90 tablet 3 01/08/20 24 Active tamsulosin (FLOMAX) 0.4 mg extended release capsule 01/27/20 24 Active fludrocortisone 0.1 mg tablet Take 1 tablet (0.1 mg total) by mouth daily Active cephalexin (KEFLEX) 500 mg capsule Take 1 capsule (500 mg total) by mouth 3 (three) times a day 21 capsule 03/26/20 24 Active Additional Information Patient not taking.Reported on 09/07/2024 carbidopa-levodopa (SINEMET) 25-100 mg per tabletIndications: Parkinsonism Take 1 tablet by mouth 3 (three) times a day 90 tablet 5 06/30/20 24 Active buPROPion XL (WELLBUTRIN XL) 150 mg 24 hr tablet Take 1 tablet (150 mg total) by mouth every morning 07/14/20 24 Active ciprofloxacin (CIPRO) 500 mg tablet Take 1 tablet (500 mg total) by mouth every 12 (twelve) hours 07/06/20 24 Active sodium chloride 1,000 mg tablet Take 1 tablet (1 g total) by mouth daily 07/02/20 24 Active pimavanserin (Nuplazid) 34 mgIndications:Park inson's disease, unspecified whether dyskinesia present, unspecified whether manifestations fluctuate (HCC) Take 1 capsule (34 mg total) by mouth daily 30 capsule 5 09/08/19 25 Active trihexyphenidyL (ARTANE) 2 mg tabletIndications: Parkinson's disease, unspecified whether dyskinesia present, unspecified whether manifestations fluctuate (HCC) Take 1/2 (one-half) tablet by mouth once daily 15 tablet 5 09/21/19 25 Active Active Problems Problem Noted Date Diagnosed Date Dizziness 03/24/2024 Extremity atherosclerosis with intermittent maria antonia dication 03/16/2024 PAD (peripheral artery disease) 03/16/2024 PVD (peripheral vascular disease) 02/23/2024 Dementia without behavioral disturbance 12/01/19 Claudication 11/19/2023 Transient alteration of awareness 09/09/2023 Stenosis of left carotid artery 09/09/2023 CAD (coronary artery disease) 09/08/2023 Dyslipidemia 09/08/2023 ED (erectile dysfunction) of organic origin 08/12 Essential hypertension 09/08/2023 Orthostatic hypotension 07/02/2022 Current moderate episode of major depressive disorder without prior episode 11/21/2021 Memory disturbance 10/29/2021 History of spinal cord injury 10/29/2021 History of stroke 10/29/2021 Parkinson's disease 01/22/2021 Assessment & Plan (11/21/2021 12:56 PM CDT): Mr. Jay Shah is a 71 y.o. male, who presents for evaluation of PD. He developed left hand tremor in his 20s. He noted in 2019, he noted worsening of the left hand tremor, followed by progression of the tremor to the right hand, shuffling gait, loss of dexterity, changes in handwriting. As far as non-motor symptoms, he has cognitive decline, depression, constipation and orthostasis. He has good response to levodopa, with improvement of tremor, but the medication caused sedation. There is no family history of parkinsonism. On examination, there is moderate parkinsonism, more evident in the left side. History and examination are compatible with PD. The absence of ataxia, significant dysautonomia, along with significant response to levodopa reinforce the diagnosis of PD. Cognitive decline started on year 2 after the onset of the symptoms and associated mood disorder can contribute to it. We discussed disease pathophysiology and treatment strategies for PD. As he could not tolerate carbidopa-levodopa IR due to sedation, we will try Rytary to see if he can tolerate it better. In addition, we will start Lexapro to help with the mood symptoms. Plan: - We will start a formulation of carbidopa-levodopa called Rytary. We will submit the paperwork with the insurance to get the medication covered. - Start Lexapro 10 mg 1 tablet daily. Monitor the mood for about 4-6 weeks and if no improvement, contact the clinic. Potential medication side effects were discussed during the encounter. Encounters Date Type Department Care Team Description 11/10/2024 Telephone [facility] [address] [place] [address] [place] [phone] Cherry Boyd NP 11/02/2024 Telephone [facility] [address] [place] [phone] Cherry Boyd NP Patient health declining 09/07/2024 11:30 AM SCHOOL FUNDRAISING DIRECTOR Office Visit [facility] [address] [place] [phone] Cherry Boyd NP Parkinson's disease, unspecified whether dyskinesia present, unspecified whether manifestations fluctuate (HCC) (Primary Dx); Transient alteration of awareness; Orthostatic hypotension; Dizziness; Dementia without behavioral disturbance (HCC); History of stroke; Stenosis of left carotid artery 09/07/2024 Telephone [facility] [address] [place] [phone] Cherry Boyd NP pharmacy change (pimavanserin (Nuplazid) 34 mg) from Last 3 Months Surgical History Surgery Date Site/Laterality Comments OTHER SURGICAL HISTORY bypass CARDIAC STENT PLACEMENT VASECTOMY ORAL SURGERY Medical History Medical History Date Comments Parkinson disease (HCC) Stroke (HCC) COPD (chronic obstructive pulmonary disease) (HC C) Anxiety Depression High cholesterol Claudication Hypertension Urinary tract infection Family History Medical History Relation Name Comments Cancer Father Dementia Mother No Known Problems Sister 1 No Known Problems Sister 2 Parkinsonism Neg Hx Tremor Neg Hx Relation Name Status Comments Daughter Alive Father (Age 75) cancer Mother (Age 85) Sister 1 Alive good Sister 2 Alive Son Alive Social History Tobacco Use Types Packs/Day Years Used Date Smoking Tobacco: Former Cigarettes Smokeless Tobacco: Never Tobacco Cessation:Counseling Given: Not Answered Personal Safety Answer Date Recorded Have you ever been in or are you currently in a harmful physical or emotional relationship or is someone making you feel afraid or unsafe? Denies 03/26/2024 Sex and Gender Information Value Date Recorded Sex Assigned at Not on file Legal Sex Male 4:08 AM SCHOOL FUNDRAISING DIRECTOR Gender Identity Not on file Sexual Orientation Not on file Occupation Industry Job Start Date Job End Date Retired Not on file Not on file Not on file Obstetrics History Last Filed Vital Signs Vital Sign Reading Time Taken Comments Blood Pressure 96/50 09/07/2024 11:36 AM SCHOOL FUNDRAISING DIRECTOR Pulse 54 09/07/2024 11:36 AM SCHOOL FUNDRAISING DIRECTOR Temperature 36.5 C (97.7 F) 03/26/2024 10:39 AM CDT Respiratory Rate 14 03/26/2024 10:39 AM CDT Oxygen Saturation 95% 03/26/2024 2:15 PM CDT Inhaled Oxygen Concentration - - Weight 85.7 kg (189 lb) 09/07/2024 11:36 AM SCHOOL FUNDRAISING DIRECTOR Height 182.9 cm (6') 09/07/2024 11:36 AM SCHOOL FUNDRAISING DIRECTOR Body Mass Index 25.63 09/07/2024 11:36 AM SCHOOL FUNDRAISING DIRECTOR Plan of Treatment Health Maintenance Due Date Last Done Comments Colon Cancer Screening-Colonoscopy 1950 Depression Screening 1950 Hepatitis C Screening 1950 Hepatitis B Screening 02/02/1968 Pneumococcal vaccine 65+ (1 of 2 - PCV) 1969 Zoster Vaccine (1 of 2) 02/02/2000 Well Visit 65+ 2015 Fall Risk Assessment 12/24/2024 12/25/2023, 02/23/20 Influenza Vaccine (Season Ended) 2025 05/21/2019, 04/30/2018, 07/31/2015 DTaP/Tdap/Td Vaccine (2 - Td or Tdap) 04/11/202908/2018 Abdominal Aortic Aneurysm (A AA) Screen Completed 02/23/2024 Medical Devices Implanted Type Area [employer] Device Identifier Shelf Expiration Date Model / Serial / [facility] Device Closure Vascade Od5 Fr Femoral Artery [id number] - [id number] Implanted:Qty: 1 on 12/25/2023 by Jayce Reyes MD at [facility] [employer] 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 1. Right lower extremity: Three-vessel runoff, with stenoses as described above. 2. Left lower extremity: Three-vessel runoff, with stenoses as described above Electronically signed by: Clement Waller M.D. Narrative 02/23/2024 1:08 PM CDT EXAMINATION: CT ANGIOGRAPHY OF THE ABDOMEN, PELVIS, AND LOWER EXTREMITIES WITH CONTRAST HISTORY: Claudication TECHNIQUE: CT angiography of the abdomen, pelvis, and lower extremities was performed following the uneventful intravenous administration of 120 ml Optiray-350. Vascular 3D images were generated on a dedicated workstation and also reviewed. FINDINGS: No prior studies are available for comparison. VASCULAR FINDINGS: Advanced atherosclerosis of the thoracoabdominal aorta and its branches. Abdominal Aorta and Branches: Celiac axis: Mild stenosis SMA: no significant stenosis JOSE F: Mild stenosis 2 right renal arteries: no significant stenosis 3 left renal arteries: no significant stenosis Infrarenal aorta: Mild stenosis Pelvic Vessels: R. Common iliac artery: Moderate and severe stenosis R. External iliac artery: no significant stenosis R. Internal iliac artery: Severe stenosis proximally L. Common iliac artery: Stented and patent L. External iliac artery: no significant stenosis L. Internal iliac artery: no significant stenosis Right Lower Extremity: R. Common femoral artery: Moderate-severe stenosis, nearly focally occluded R. Profunda femoris artery: no significant stenosis R. Superficial femoral artery: Mild multifocal stenosis R. Popliteal artery: Severe proximal stenosis and mild throughout R. Anterior tibial artery: Mild stenosis proximally R. Tibioperoneal trunk: no significant stenosis R. Posterior tibial artery: Mild stenosis proximally R. Peroneal artery: Mild stenosis proximally R. Dorsalis pedis artery: no significant stenosis R. Plantar artery: no significant stenosis Left Lower Extremity: L. Common femoral artery: Severe stenosis and treated focal occlusion L. Profunda femoris artery: no significant stenosis L. Superficial femoral artery: Mild multifocal stenosis L. Popliteal artery: Mild stenosis L. Anterior tibial artery: Mild stenosis L. Tibioperoneal trunk: no significant stenosis L. Posterior tibial artery: Mild stenosis proximally L. Peroneal artery: no significant stenosis L. Dorsalis pedis artery: no significant stenosis L. Plantar artery: no significant stenosis NON-VASCULAR FINDINGS: Lung bases are unremarkable. Imaged base of heart is normal. Esophagus and stomach are nondistended. The spleen is normal. The unenhanced liver is unremarkable. Gallbladder is nondistended. The pancreas is unremarkable. Adrenal glands are normal. Kidneys enhance symmetrically. No hydronephrosis. Urinary bladder is normal. Prostate is present. No evidence of bowel obstruction. No intraperitoneal free air or free fluid. No lymphadenopathy. Changes of median sternotomy. No aggressive osseous lesion. Procedure Note Clement Waller MD - 02/23/2024 EXAMINATION: CT ANGIOGRAPHY OF THE ABDOMEN, PELVIS, AND LOWER EXTREMITIES WITH CONTRAST HISTORY: Claudication TECHNIQUE: CT angiography of the abdomen, pelvis, and lower extremities was performed following the uneventful intravenous administration of 120 ml Optiray-350. Vascular 3D images were generated on a dedicated workstation and also reviewed. FINDINGS: No prior studies are available for comparison. VASCULAR FINDINGS: Advanced atherosclerosis of the thoracoabdominal aorta and its branches. Abdominal Aorta and Branches: Celiac axis: Mild stenosis SMA: no significant stenosis JOSE F: Mild stenosis 2 right renal arteries: no significant stenosis 3 left renal arteries: no significant stenosis Infrarenal aorta: Mild stenosis Pelvic Vessels: R. Common iliac artery: Moderate and severe stenosis R. External iliac artery: no significant stenosis R. Internal iliac artery: Severe stenosis proximally L. Common iliac artery: Stented and patent L. External iliac artery: no significant stenosis L. Internal iliac artery: no significant stenosis Right Lower Extremity: R. Common femoral artery: Moderate-severe stenosis, nearly focally occluded R. Profunda femoris artery: no significant stenosis R. Superficial femoral artery: Mild multifocal stenosis R. Popliteal artery: Severe proximal stenosis and mild throughout R. Anterior tibial artery: Mild stenosis proximally R. Tibioperoneal trunk: no significant stenosis R. Posterior tibial artery: Mild stenosis proximally R. Peroneal artery: Mild stenosis proximally R. Dorsalis pedis artery: no significant stenosis R. Plantar artery: no significant stenosis Left Lower Extremity: L. Common femoral artery: Severe stenosis and treated focal occlusion L. Profunda femoris artery: no significant stenosis L. Superficial femoral artery: Mild multifocal stenosis L. Popliteal artery: Mild stenosis L. Anterior tibial artery: Mild stenosis L. Tibioperoneal trunk: no significant stenosis L. Posterior tibial artery: Mild stenosis proximally L. Peroneal artery: no significant stenosis L. Dorsalis pedis artery: no significant stenosis L. Plantar artery: no significant stenosis NON-VASCULAR FINDINGS: Lung bases are unremarkable. Imaged base of heart is normal. Esophagus and stomach are nondistended. The spleen is normal. The unenhanced liver is unremarkable. Gallbladder is nondistended. The pancreas is unremarkable. Adrenal glands are normal. Kidneys enhance symmetrically. No hydronephrosis. Urinary bladder is normal. Prostate is present. No evidence of bowel obstruction. No intraperitoneal free air or free fluid. No lymphadenopathy. Changes of median sternotomy. No aggressive osseous lesion. 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 1. Right lower extremity: Three-vessel runoff, with stenoses as described above. 2. Left lower extremity: Three-vessel runoff, with stenoses as described above Electronically signed by: Clement Waller M.D. Vicente Villanueva MD IMG CT PROCEDURES Final Resu lt from Last 3 Months or Most Recently Relevant to Health Maintenance Insurance [employer]HC MEDICARE ADVANTAGE [id number] UHC MEDICARE ADVANTAGE Care Teams Certified Personal Trainer Relationship Specialty Start Date End Date Gabriella Parker MD PCP - General Family Practice 12/16/18
--- OUTSIDE RECORDS SUMMARY | 2024-11-20 08:18 | XMS_ITS | Clinical Summary ---
Author Organization [facility] Address [address] [place] [address] Care Team Providers Care Switch Operator Name Role Phone Arie Lemus MD Primary Care Provider [phone] Lv Yepez MD Unavailable Medications aspirin 325 MG tablet Take 1 tablet by mouth daily. 09/11/2015 Active atorvastatin 20 MG tablet Take 1 tablet by mouth daily. 09/11/2015 Active lisinopril 20 MG tablet Take 1 tablet by mouth daily. 09/11/2015 Active metoprolol tartrate 25 MG tablet Take 1 tablet by mouth 2 (two) times daily. 09/11/2015 Active Active Problems Problem Noted Date Diagnosed Date Essential hypertension ED (erectile dysfunction) of organic origin Dyslipidemia CAD (coronary artery disease) Family History Medical History Relation Comments Heart Disease Neg Hx Social History Tobacco Use Types Packs/Day Years Used Date Smoking Tobacco: Former Sex and Gender Information Value Date Recorded Sex Assigned at Not on file Legal Sex Male 9:29 PM CDT Gender Identity Not on file Sexual Orientation Not on file Last Filed Vital Signs Vital Sign Reading Time Taken Comments Blood Pressure 142/82 12/26/2015 8:22 AM CDT Pulse 73 12/26/2015 8:22 AM CDT Temperature - - Respiratory Rate - - Oxygen Saturation - - Inhaled Oxygen Concentration - - Weight 99.8 kg (220 lb) 12/26/2015 8:22 AM CDT Height 182.9 cm (6') 12/26/2015 8:22 AM CDT Body Mass Index 29.84 12/26/2015 8:22 AM CDT Plan of Treatment Health Maintenance Due Date Last Done Comments ASCVD Statin 1950 Colorectal Cancer Screening Colonoscopy (10 Years) 1950 Pneumococcal Vaccine: 65+ Years (1 of 2 - PCV) 02/02/1956 Hepatitis C 02/02/1968 DTaP, Tdap and Td Vaccines (1 - Tdap) 1969 Zoster Vaccines (1 of 2) 02/02/2000 RSV Immunization or 60+ Years (1 - Risk 60-74 years 1-dose series) 2010 Annual Medicare Wellness Visit 2015 ASCVD LDL 12/25/2016 12/26/2015, 09/11, 08/17/2015, Additional history exists COVID-19 Vaccine ( - 2023- season) 2024 Meningococcal B Vaccine Aged Out No l onger eligible based on patient's age to complete this topic Meningococcal Vaccine Aged Out No merary nguyễn eligible based on patient's age to complete this topic RSV Immunizations Under 20 Months Aged Out No longer eligible based on patient's age to complete this topic Procedures Procedure Name Priority Date/Time Associated Diagnosis Comments LIPID PANEL Routine 12/26/2015 12:00 AM CDT from Last 3 Months or Most Recently Relevant to Health Maintenance Results * LIPID PANEL (12/26/2015 12:00 AM CDT) CHOLESTEROL 148 100 - 199 mg/dL [facility] TO EPIC CONVERSION TRIGLYCERIDES 84 0 - 149 mg/dL [facility] TO EPIC CONVERSION HDL 75 >39 mg/dL [facility] T O EPIC CONVERSION Comment: Result Comment: According to ATP-III Guidelines, HDL-C >59 mg/dL is considered a negative risk factor for CHD. VLDL CALCULATION 17 5 - 40 mg/dL [facility] TO EPIC CONVERSION LDL (CALCULATED) 56 0 - 99 mg/dL [facility] TO EPIC CONVERSION LDL/HDL 0.7 0.0 - 3.6 ratio units [facility] TO EPIC CONVERSION Comment: Result Comment: LDL/HDL Ratio Men Women 1/2 Avg.Risk 1.0 1.5 Avg.Risk 3.6 3.2 2X Avg.Risk 6.2 5.0 3X Avg.Risk 8.0 6.1 COMMENT [facility] T O EPIC CONVERSION 12/26/2015 12/26/2015 Narrative [facility] TO EPIC CONVERSION - 12/27/2015 8:00 AM CDT Result Communication: Call patient with results Arie Lemus MD LABORATORY Final Result [facility] TO EPIC CONVERSION from Last 3 Months or Most Recently Relevant to Health Maintenance Insurance MED REPLACE C/AARP MED COMPLETE Member Subscriber Plan / Payer (Ef fective for All Dates) Name:Jay Shah Relation to Subscriber:Self Name:Jay Shah Payer ID:[id number] (NAIC) Type:Indemnity Address: [place] [id number] Care Teams Switch Operator Relationship Specialty Start Date End Date Arie Lemus MD [address] [place] [address] PCP - General INTERNAL MEDICINE 03/11/16 Lv Yepez MD [address] [address] [place] Insulating Machine Operator CARDIOVASCULAR DISEASE 03/11/16
--- OUTSIDE RECORDS SUMMARY | 2024-11-20 08:18 | XMS_ITS | Encounter Summary ---
Author Organization [facility] Address [address] [place] [address] Phone Care Team Providers Care Welder Journeyman Name Role Phone Gabriella Parker MD Primary Care Provider Encounter Details Date Type Department Care Team (Late st Contact Info) Description 01/23/2024 Documentation [facility] Surgery [id number] [place] [address] Medical Office Building [address] [phone] Cele Perla Social History Tobacco Use Types Packs/Day Years Used Date Smoking Tobacco: Some Days Cigarettes Smokeless Tobacco: Never Personal Safety Answer Date Recorded Have you ever been in or are you currently in a harmful physical or emotional relationship or is someone making you feel afraid or unsafe? Denies 12/25/2023 Sex and Gender Information Value Date Recorded Sex Assigned at Not on file Legal Sex Male 4:08 AM RETAIL PRICING COORDINATOR Gender Identity Not on file Sexual Orientation Not on file Occupation Industry Job Start Date Job End Date Retired Not on file Not on file Not on file documented as of this encounter Plan of Treatment Not on file documented as of this encounter Visit Diagnoses Not on filedocumented in this encounter Care Teams Welder Journeyman Relationship Specialty Start Date End Date Gabriella Parker MD PCP - General Family Practice 12/16/18 documented as of this encounter
--- OUTSIDE RECORDS SUMMARY | 2024-11-20 08:18 | XMS_ITS | Clinical Summary ---
Author Organization Unknown Care Team Providers Care Pulp Cooker Name Role Phone JIAN HANCOCK Unavailable Unavailable NEVA SPIRITUAL CARE COUNSELOR, TIERNEY Unavailabl e Unavailable LAWANDA LEHMAN Unavailable Unavailable CAILIN REGISTERED NURSE, AFTER HOURS, MADDISON Gavin ailable Unavailable [facility]ONG HOS[facility] CORRESPONDENCE SECTION SUPERVISOR, SANDI Unavailable Unavai lable Payers Payer Name Policy Type Policy Number Effective Date Expira tion Date MEDICARE [place] [id number] [facility] [id number] Problems Condition Name Condition Details Condition Category Status Onset Date Resolution Date Last Treatment Date Treating Clinician Comments PARKINSON'S DIS W/O DYSKINESIA, W/O MENTION OF FLUCTUATIONS Active 11-13 00:00: 00 ALZHEIMER'S DISEASE, UNSPECIFIED Active 11-13 00:00: 00 DEM IN OTH DIS CLASSD ELSWHR,UNSP SEV,W/O BEH/PSYCH/MO OD/ANX Active 11-13 00:00: 00 ESSENTIAL (PRIMARY) HYPERTENSION Active 11-13 00:00: 00 ATHSCL HEART DISEASE OF [place] CORONARY ARTERY W/O ANG PCTRS Active 11-13 00:00: 00 PERIPHERAL VASCULAR DISEASE, UNSPECIFIED Active 11-13 00:00: 00 ANEMIA, UNSPECIFIED Active 11-13 00:00: 00 HYPERLIPIDEM IA, UNSPECIFIED Active 11-13 00:00: 00 HYPO-OSMOLAL ITY AND HYPONATREMIA Active 11-13 00:00: 00 BENIGN PROSTATIC HYPERPLASIA WITHOUT LOWER URINRY TRACT SYMP Active 11-13 00:00: 00 UNSPECIFIED URINARY INCONTINENCE Active 11-13 00:00: 00 PREDIABETES Active 11-13 00:00: 00 ANOREXIA Active 11-13 00:00: 00 MAJOR DEPRESSIVE DISORDER, SINGLE EPISODE, UNSPECIFIED Active 11-13 00:00: 00 ANXIETY DISORDER, UNSPECIFIED Active 11-13 00:00: 00 NICOTINE DEPENDENCE, CIGARETTES, UNCOMPLICATE D Active 11-13 00:00: 00 Personal history of colon polyps, unspecified Active 11-13 00:00: 00 PRESENCE OF AORTOCORONAR Y BYPASS GRAFT Active 11-13 00:00: 00 PRESENCE OF OTHER VASCULAR IMPLANTS AND GRAFTS Active 11-13 00:00: 00 Allergies, Adverse Reactions, Alerts Allergy Name Allergy Type Status Severity Reaction(s) Onset Date Inactive Date Treating Clinician Comments NO KNOWN ALLERGIES Propensity to adverse reactions Active 11-13 13:37: 03 Medications Ordered Medication Name Filled Medication Name Start Date Stop Date Current Medication? Ordering Clinician Indication Dosage Frequency Signature (SIG) Comments Components acetaminoph en 650 mg rectal suppository 11-13 00:00: 00 Yes [id number] MILD PAIN / FEVER 1 supposi tory, rectal EVERY 4 HOURS 1 suppositor y, rectal EVERY 4 HOURS (route: rectal) Med Classific ation: Analgesic , Anti-infl ammatory or Antipyret ic bisacodyl 10 mg rectal suppository 11-13 00:00: 00 Yes [id number] CONSTIPATIO N 1 supposi tory, rectal DAILY 1 suppositor y, rectal DAILY (route: rectal) Med Classific ation: Gastroint estinal Therapy Agents haloperidol lactate 2 mg/mL oral concentrate 11-13 00:00: 00 Yes [id number] SEVERE AGITATION / NAUSEA / VOMITING 0.5 mL EVERY 4 HOURS 0.5 mL EVERY 4 HOURS (route: oral) Med Classific ation: Central Nervous System Agents hyoscyamine 0.125 mg sublingual tablet 11-13 00:00: 00 Yes [id number] EXCESSIVE SECRETIONS 1 tablet EVERY 4 HOURS 1 tablet EVERY 4 HOURS (route: sublingual ) Med Classific ation: Gastroint estinal Therapy Agents lorazepam 1 mg tablet 11-13 00:00: 00 Yes [id number] ANXIETY / RESTLESSNES S 1 tablet EVERY 4 HOURS 1 tablet EVERY 4 HOURS (route: oral) Med Classific ation: Central Nervous System Agents morphine concentrate 100 mg/5 mL (20 mg/mL) oral solution 11-13 00:00: 00 Yes [id number] PAIN / SHORTNESS OF BREATH 0.25 mL HOURLY 0.25 mL HOURLY (route: oral) Med Classific ation: Analgesic , Anti-infl ammatory or Antipyret ic oxygen gas for inhalation 11-13 00:00: 00 Yes [id number] SOB 2 Liter NEEDED 2 Liter A S NEEDED (route: inhalation ) Med Classific ation: Medical Supplies and Durable Medical Equipment (DME) Vital Signs Vital Name Observation Time Observation Value Commen ts Temperature 2024-11-18 12:20:00.000 97 [degF] Temperature 2024-11-13 17:33:00.000 97.3 [degF] BMI (%) 2024-11-13 17:33:00.000 24 kg/m2 Height 2024-11-13 17:33:00.000 73 [in_us] Pulse 2024-11-18 12:20:00.000 78 /min Pulse 2024-11-13 17:33:00.000 65 /min Respirations 2024-11-18 12:20:00.000 20 /min Respirations 2024-11-13 17:33:00.000 24 /min Weight (lbs) 2024-11-13 17:33:00.000 186 [lb_av] Systolic Blood Pressure 2024-11-18 12:20:00.000 112 mm [Hg] Systolic Blood Pressure 2024-11-13 17:33:00.000 81 mm[ Hg] Diastolic Blood Pressure 2024-11-18 12:20:00.000 68 mm [Hg] Diastolic Blood Pressure 2024-11-13 17:33:00.000 57 mm [Hg] Plan of Treatment Planned Activity Planned Date Details Comments Future Scheduled Test COMBINER OPERATOR TO EVALUATE PATIENT AND DEVELOP A NURSING PLAN OF CARE. [code = COMBINER OPERATOR TO EVALUATE PATIENT AND DEVELOP A NURSING PLAN OF CARE.] Future Scheduled Test ROUTINE LE DA OF CARE FOR MANAGEMENT OF SYMPTOMS AND PROVIDING COMFORT AT END OF LIFE. [code = ROUTINE LEVEL OF CARE FOR MANAGEMENT OF SYMPTOMS AND PROVIDING COMFORT AT END OF LIFE.] Future Scheduled Test HOSPICE NU RSE TO MONITOR PATIENT'S PAIN LEVEL AND REPORT INEFFECTIVE PAIN CONTROL TO THE PHYSICIAN. [code = HOSPICE NURSE TO MONITOR PATIENT'S PAIN LEVEL AND REPORT INEFFECTIVE PAIN CONTROL TO THE PHYSICIAN.] Future Scheduled Test HOSPICE NU RSE TO INSTRUCT ON PAIN MANAGEMENT. [code = HOSPICE NURSE TO INSTRUCT ON PAIN MANAGEMENT.] Future Scheduled Test HOSPICE NU RSE TO INSTRUCT IN SAFE USE OF OXYGEN AND MONITOR ITS EFFECTIVENESS. [code = HOSPICE NURSE TO INSTRUCT IN SAFE USE OF OXYGEN AND MONITOR ITS EFFECTIVENESS.] Future Scheduled Test HOSPICE NU RSE TO ASSESS EFFECTIVENESS OF CARDIOPULMONARY SYMPTOM RELIEF MEASURES INCLUDING OXYGEN TREATMENT AND COMFORT MODALITIES [code = HOSPICE NURSE TO ASSESS EFFECTIVENESS OF CARDIOPULMONARY SYMPTOM RELIEF MEASURES INCLUDING OXYGEN TREATMENT AND COMFORT MODALITIES] Future Scheduled Test HOSPICE NU RSE TO PROVIDE INSTRUCTIONS/REINFORCEMENT RELATED TO URINARY INCONTINENCE. [code = HOSPICE NURSE TO PROVIDE INSTRUCTIONS/REINFORCEMENT RELATED TO URINARY INCONTINENCE.] Future Scheduled Test INSTRUCT R EGARDING APPROPRIATE BOWEL PROTOCOL NEEDED. [code = INSTRUCT REGARDING APPROPRIATE BOWEL PROTOCOL NEEDED.] Future Scheduled Test HOSPICE NU RSE TO INSTRUCT REGARDING CARE RELATED TO BOWEL INCONTINENCE. [code = HOSPICE NURSE TO INSTRUCT REGARDING CARE RELATED TO BOWEL INCONTINENCE.] Future Scheduled Test HOSPICE NU RSE TO ASSESS NUTRITION AND HYDRATION STATUS [code = HOSPICE NURSE TO ASSESS NUTRITION AND HYDRATION STATUS] Future Scheduled Test HOSPICE NU RSE TO ASSESS FOR SIGNS/SYMPTOMS OF ANXIETY/TERMINAL AGITATION AND PROVIDE INSTRUCTION REGARDING ORIGIN AND MANAGEMENT. [code = HOSPICE NURSE TO ASSESS FOR SIGNS/SYMPTOMS OF ANXIETY/TERMINAL AGITATION AND PROVIDE INSTRUCTION REGARDING ORIGIN AND MANAGEMENT.] Future Scheduled Test HOSPICE NU RSE TO PROVIDE INSTRUCTION RELATED TO PREVENTION/MANAGEMENT OF SKIN BREAKDOWN. [code = HOSPICE NURSE TO PROVIDE INSTRUCTION RELATED TO PREVENTION/MANAGEMENT OF SKIN BREAKDOWN.] Future Scheduled Test INSTRUCT C AREGIVER(S) ON HOW TO ASSIST WITH PATIENT ADLS [code = INSTRUCT CAREGIVER(S) ON HOW TO ASSIST WITH PATIENT ADLS] Future Scheduled Test HOSPICE NU RSE TO ASSESS CURRENT DEGREE OF DEPRESSION AND PROVIDE THERAPEUTIC INTERVENTIONS/INSTRUCTIONS DESIGNED TO ENHANCE THE PATIENT'S WELL BEING. IRON WORKER REFERRAL NEEDED. [code = HOSPICE NURSE TO ASSESS CURRENT DEGREE OF DEPRESSION AND PROVIDE THERAPEUTIC INTERVENTIONS/INSTRUCTIONS DESIGNED TO ENHANCE THE PATIENT'S WELL BEING. IRON WORKER REFERRAL NEEDED.] Future Scheduled Test HOSPICE NU RSE TO ASSESS SLEEP PATTERNS AND INSTRUCT IN MEASURES TO IMPROVE REST. [code = HOSPICE NURSE TO ASSESS SLEEP PATTERNS AND INSTRUCT IN MEASURES TO IMPROVE REST.] Future Scheduled Test HOSPICE NU RSE FOR OBSERVATION / ASSESSMENT OF SIGNS / SYMPTOMS OF DECLINING STATUS/IMMINENT [code = HOSPICE NURSE FOR OBSERVATION / ASSESSMENT OF SIGNS / SYMPTOMS OF DECLINING STATUS/IMMINENT ] Future Scheduled Test MEDICAL SO CIAL WORKER TO EVALUATE SOCIAL, EMOTIONAL AND FINANCIAL FACTORS RELATED TO THE PATIENT'S ILLNESS, NEED FOR ADDITIONAL CARE/RESOURCES, ADJUSTMENT TO CARE AND DEVELOP A PLAN OF CARE. [code = SALES FACILITATOR TO EVALUATE SOCIAL, EMOTIONAL AND FINANCIAL FACTORS RELATED TO THE PATIENT'S ILLNESS, NEED FOR ADDITIONAL CARE/RESOURCES, ADJUSTMENT TO CARE AND DEVELOP A PLAN OF CARE.] Future Scheduled Test ELEMENTARY EDUCATION TUTOR T O EVALUATE PATIENT/FAMILY/CAREGIVER AND DEVELOP A PLAN OF CARE. [code = ELEMENTARY EDUCATION TUTOR TO EVALUATE PATIENT/FAMILY/CAREGIVER AND DEVELOP A PLAN OF CARE.] Future Scheduled Test HOSPICE NU RSE TO ASSESS MEDICATION RESPONSE AND INSTRUCT ON SCHEDULE, ACTIONS, PURPOSE, SIDE EFFECTS, COMPLIANCE AND NEED TO REPORT SIDE EFFECTS TO HOSPICE STAFF. [code = HOSPICE NURSE TO ASSESS MEDICATION RESPONSE AND INSTRUCT ON SCHEDULE, ACTIONS, PURPOSE, SIDE EFFECTS, COMPLIANCE AND NEED TO REPORT SIDE EFFECTS TO HOSPICE STAFF.] Future Scheduled Test HOSPICE NU RSE FOR OBSERVATION / ASSESSMENT OF PATIENT SAFETY, INSTRUCT SAFETY MEASURES PRN [code = HOSPICE NURSE FOR OBSERVATION / ASSESSMENT OF PATIENT SAFETY, INSTRUCT SAFETY MEASURES PRN] Future Scheduled Test HOSPICE NU RSE FOR OBSERVATION/ASSESSMENT OF NEUROLOGICAL STATUS. [code = HOSPICE NURSE FOR OBSERVATION/ASSESSMENT OF NEUROLOGICAL STATUS.] Goal Provider Goal - A NURSING PLAN OF CARE WILL BE ESTABLISHED. Goal Provider Goal - A ROUTINE PLAN OF CARE WILL BE ESTABLISHED IN ORDER TO MANAGE SYMPTOMS AND PROVIDE COMFORT AT END OF LIFE. Goal Provider Goal - PAIN WILL BE MANAGED AT A LEVEL ACCEPTABLE TO THE PATIENT. Goal Provider Goal - PATIENT/CAREGIVER WILL VERBALIZE/DEMONSTRATE APPROPRIATE PAIN MANAGEMENT. Goal Provider Goal - PATIENT/CAREGIVER WILL VERBALIZE/DEMONSTRATE UNDERSTANDING OF HOW TO USE OXYGEN SAFELY AND EFFECTIVELY. Goal Provider Goal - PATIENT WILL VERBALIZE/DEMONSTRATE REDUCTION OR RELIEF OF CARDIOPULMONARY SYMPTOMS. Goal Provider Goal - PATIENT/CAREGIVER WILL VERBALIZE UNDERSTANDING OF EFFECTS OF URINARY INCONTINENCE. Goal Provider Goal - PATIENT WILL FOLLOW AN EFFECTIVE BOWEL PROGRAM TO PREVENT/RELIEVE CONSTIPATION. Goal Provider Goal - PATIENT/CAREGIVER WILL VERBALIZE/DEMONSTRATE UNDERSTANDING OF CARE REQUIRED SECONDARY TO BOWEL INCONTINENCE. Goal Provider Goal - PATIENT/CAREGIVER WILL VERBALIZE AND DEMONSTRATE APPROPRIATE KNOWLEDGE OF NUTRITION AND HYDRATION NEEDS FOR TERMINAL PATIENT Goal Provider Goal - PATIENT'S ANXIETY/AGITATION IS MINIMIZED/CONTROLLED AND CAREGIVER VERBALIZES UNDERSTANDING OF ITS EFFECTS/ORIGIN/TREATMENT. Goal Provider Goal - CAREGIVER WILL VERBALIZE/DEMONSTRATE MEASURES TO PREVENT/MANAGE SKIN BREAKDOWN. Goal Provider Goal - CAREGIVER WILL DEMONSTRATE ABILITY TO ASSIST PATIENT WITH ADLS Goal Provider Goal - PATIENT/CAREGIVER WILL UNDERSTAND MEASURES TO COPE WITH DEPRESSION. PATIENT'S DEPRESSION WILL BE REDUCED. Goal Provider Goal - PATIENT WILL REPORT AT LEAST 6-8 HOURS PER NIGHT OF RESTFUL SLEEP PATTERNS Goal Provider Goal - PATIENT WILL TRANSITION PEACEFULLY THROUGH THE DYING PROCESS Goal Provider Goal - A SALES FACILITATOR PLAN OF CARE WILL BE ESTABLISHED. Goal Provider Goal - A ELEMENTARY EDUCATION TUTOR PLAN OF CARE WILL BE ESTABLISHED. Goal Provider Goal - MEDICATIONS WILL BE MANAGED APPROPRIATELY EVIDENCED BY STEADY SYMPTOM CONTROL. PATIENT/CAREGIVER WILL VERBALIZE/DEMONSTRATE COMPLIANCE WITH MEDICATION REGIMEN. Goal Provider Goal - PATIENT WILL HAVE SAFETY NEEDS MET Goal Provider Goal - CHANGES IN NEUROLOGIC STATUS WILL BE ADDRESSED APPROPRIATELY. Progress Notes Progress Notes <paragraph>[Visit Date: 2024 by LUIZ GUZMAN LICENSED PRACTICAL NURSE]:</paragraph><paragraph>74 Y/O MALE RESIDES AT HOME WITH SPOUSE. CURRENT DX PARKINSON'S DIS W/O DYSKINESIA, W/O MENTION OF FLUCTUATIONS AND ALZHEIMERS. PATIENT WAS SITTING UP IN A RECLINER WITH SPOUSE AND GRANDSON PRESENT WHEN THIS NURSE ARRIVED. PATIENT IS ALERT AND ORIENTED X2 WITH CONFUSION AND FORGETFULNESS. PATIENT USES A WALKER INDEPENDENTLY FOR LOCOMATION, BUT NEEDS STAND BY ASSISTANCE DUE TO CONSTANT FALLS. PATIENT FORGETS HE IS UNABLE TO AMBULATE INDEPENDENTLY AND FORGETS TO AMBULATE WITH WALKER. SPOUSE STATES SHE GETS AGRAVATED WITH HAVING TO REMIND PATIENT TO NOT AMBULATE ON HIS OWN OR TO AMBULATE WITH HIS WALKER. GRANDSON IS HOME ON A 30 DAY LEAVE FROM THE TO HELP CARE FOR PATIENT. SKIN IS PALE, WARM, AND DRY. PATIENT DID NOT ANSWER ANY OF THIS NURSES QUESTIONS. SPOUSE ANSWERED FOR PATIENT. PATIENT MUMBLED WHILE LOOKING AT SPOUSE AND SHE STATES HE SAID HE DOESN'T UNDERSTAND WHAT IS BEING SAID. SPOUSE IS ABLE TO UNDERSTAND PATIENTS GESTURES, FACIAL EXPRESSIONS, AND WORD SALAD DUE TO PATIENT BEING IN THIS STATE THE LAST YEAR AND HALF. LUNG SOUNDS CLEAR WITH NO DYSPNEA OR COUGH NOTED. ABDOMEN SOFT AND NON-DISTENDED WITH ACTIVE BOWEL SOUNDS X4. LAST BOWEL MOVEMENT 4/8 PER SPOUSE, BUT SHE STATES PATIENT TAKES HIMSELF SOMETIMES. MEAL INTAKE HAS DECREASED IN THE LAST COUPLE OF MONTHS. SPOUSE STATES PATIENT HAS ONGOING BACK PAIN DUE TO A PAST FRACTURE. OTHERWISE OCCASIONAL GENERALIZED PAIN/DISCOMFORT. NO EDEMA NOTED. PATIENTS SPOUSE DOESN'T FEEL SKILLED NURSES NEEDS TO COME TWICE WEEKLY. WILL SPEAK WITH MANAGER UTILITIES IN REGARDS TO THIS REQUEST. PATIENTS SPOUSE THOUGHT HOSPICE SERVICES WERE TO HELP WITH BEING A CAREGIVER AND COME DAILY FOR SEVERAL HOURS A DAY. SPOKE WITH SPOUSE ABOUT WHAT MEDICATIONS SHE WAS TALKING TO JOHNATHAN WEBBER ABOUT. SPOUSE STATES SHE WAS NOT AWARE THE MEDICATIONS FOR HALLUCINATIONS AT NIGHT WERE SENT TO THE PHARMACY. VERIFIED PHARMACY PREFERENCE WITH SPOUSE AND SHE STATES [facility] AND THEN SHOWED THIS NURSE WHERE [facility] HAD CONTACTED HER VIA TEXT STATING 2 MEDICATIONS WERE READY FOR ASSISTANT PROFESSOR OF GEOGRAPHY THIS AM. SPOUSE STATES SHE WAS UNSURE WHAT MEDICATIONS [facility] MEANT AND HAD TO FIGURE OUT A WAY TO THE PHARMACY. SUPPLIES WERE RECEIVED TODAY. NO OTHER MEDICATIONS ARE NEEDED AT THIS TIME. PER ALERT A MEDICATION LIST WAS NEEDED, BUT SPOUSE STATES SHE GAVE THAT TO THE OTHER NURSE A COUPLE DAYS AGO. ADVISED TO CALL 800# FOR ANY ISSUES OR CONCERNS.</paragraph> <paragraph>[Visit Date: 2024 by SANDI [facility]]:</paragraph><paragraph>PT WAS SITTING IN RECLINER UPON ARRIVAL. ADLS PER PATIENT CARE PLAN WERE NOT PERFORMED. PT ALREADY SHOWERED UPON ARRIVAL. PT IS HER WITH SPOUSE AND GRANDSON. NO CONCERNS AT THIS TIME.</paragraph> <paragraph>[Visit Date: 2024 by TIERNEY HOOKS SPIRITUAL CARE COUNSELOR]:</paragraph><paragraph>ELEMENTARY EDUCATION TUTOR VISITED WITH PT TODAY TO PROVIDE ANY NEEDED SPIRITUAL OR EMOTIONAL SUPPORT AND TO COMPLETE SPIRITUAL ASSESSMENT. PT IS CONFUSED AT TIMES BUT DID RESPOND TO SOME QUESTIONS. 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 THEY RECEIVE SUPPORT FROM FRIENDS AND NEIGHBORS BUT SPOUSE REPORTS FEELING OVERWHELMED WITH PT CARE. VISIT FREQUENCY WILL BE ONE TIME PER MONTH FOR SPIRITUAL AND EMOTIONAL SUPPORT NEEDED.</paragraph> <paragraph>[Visit Date: 2024 by MADDISON SIMEON REGISTERED NURSE, AFTER HOURS]:</paragraph><paragraph>CALL PLACED TO PT SPOUSE STEPHANIE TO ARRANGE TODAYS VISIT. STEPHANIE PRESENT THROUGHOUT VISIT.</paragraph> <paragraph>[Visit Date: 2024 by LAWANDA [facility]]:</paragraph><paragraph>JOHNATHAN MET BY SPOUSE, STEPHANIE. PT, JORGE LUIS, SITTING IN HIS RECLINER. PT IS ALERT AND ORIENTED X2. DIFFICULT TO UNDERSTAND AT TIMES. OFTEN ANSWERS QUESTIONS FOR JORGE LUIS. SPOUSE REPORTS PT DOES NOT SLEEP WELL. APPETITE IS FAIR. SUPPORT COMES FROM NEIGHBORS ACCORDING TO SPOUSE. SHE SAYS THERE IS ONLY HER TO CARE FOR PT. HER HEALTH IS ALSO POOR. THEY DO NOT HAVE A CONGREGATION HERE. THEY VIEW THEMSELVES PENECOSTAL. SW WILL FOLLOW UP ON HOMEMAKING SERVICES. THERE ARE NO FINAL ARRANGEMENTS AT THIS TIME. SW WILL CONTINUE TO MONITOR FOR NEEDS AND CONCERNS.</paragraph> Encounters Start Date/Time End Date/Time Encounter Type Admission Type Attending [facility] Care Department Encounter ID Discharge Date Discharge Status Discharge Condition Discharge Reason Percent Goals Met 2024-11-13 00:00:00 2025-02-10 00:00:00 Outpatient NEW ADMISSION MADDISON SIMEON [facility] [id number] 22.64
--- OUTSIDE RECORDS SUMMARY | 2024-11-20 08:18 | XMS_ITS | Referral Summary ---
Author Organization [facility] [address] Address [address] [place] [address] Care Team Providers Care Securities Supervisor Name Role Phone Gabriella Parker MD Primary Care Provider Encounters Date Type Department Care Team Description 11/10/2024 Telephone [facility] Neurology [address] [place] [address] [place] [phone] Cherry Boyd NP 11/02/2024 Telephone [facility] Neurology [address] [place] [address] [place] [phone] Cherry Boyd NP Patient health declining 09/07/2024 Telephone [facility] Neurology [address] [place] [address] [place] [phone] Cherry Boyd NP pharmacy change (pimavanserin (Nuplazid) 34 mg) 09/07/2024 11:30 AM SWAMPER Office Visit [facility] Neurology [address] [place] [address] [place] [phone] Cherry Boyd NP Parkinson's disease, unspecified whether dyskinesia present, unspecified whether manifestations fluctuate (HCC) (Primary Dx); Transient alteration of awareness; Orthostatic hypotension; Dizziness; Dementia without behavioral disturbance (HCC); History of stroke; Stenosis of left carotid artery from Last 3 Months Allergies No known active allergies Medications finasteride [...] tremor in his 20s. He noted in 2018, he noted worsening of the left hand [...] side effects were discussed during the encounter. Social History Tobacco Use Types Packs/Day Years [...] on file Legal Sex Male 4:08 AM SWAMPER Gender Identity Not on file Sexual Orientation Not on file Occupation Industry Job Start Date Job End Date Retired Not on file Not on file Not on file Last Filed Vital Signs Vital Sign Reading Time Taken Comments Blood Pressure 96/50 09/07/2024 11:36 AM SWAMPER Pulse 54 09/07/2024 11:36 AM SWAMPER Temperature 36.5 C (97.7 F) 03/26/2024 10:39 AM CDT Respiratory Rate 14 03/26/2024 10:39 AM CDT Oxygen Saturation 95% 03/26/2024 2:15 PM CDT Inhaled Oxygen Concentration - - Weight 85.7 kg (189 lb) 09/07/2024 11:36 AM SWAMPER Height 182.9 cm (6') 09/07/2024 11:36 AM SWAMPER Body Mass Index 25.63 09/07/2024 11:36 AM SWAMPER Plan of Treatment Not on file Medical Devices Implanted Type Area Director Recreation Device Identifier Shelf Expiration Date Model / Serial / Lot [employer] Device Closure Vascade Od5 Fr Femoral Artery [id number] - [id number] Implanted:Qty: 1 on 12/25/2023 by Jayce Reyes MD at [facility] 08/20/2025 [id number] / / [id number] Procedures Procedure Name Priority Date/Time Associated [...] by: Clement Waller M.D. Vicente Villanueva MD [facility] CT PROCEDURES Final Resu lt from Last 3 Months or Most Recently Relevant to Health Maintenance Insurance [facility] MED[facility] Address: [address] [address] [place] [address] [facility] MEDICARE ADVANTAGE [facility] Address: [address] [address] [place] [address] [facility] MEDIC[facility] ADVANTAGE [facility] Address: [address] [address] [place] [address] Care Teams Securities Supervisor Relationship Specialty Start Date End Date Gabriella Parker MD PCP - General Family Practice 12/16/18
--- NOTE | 2024-11-20 08:33 | PC.NURSE ---
Dr. Redd speaking with pt. on the phone.
--- NOTE | 2024-11-20 10:30 | PC.NURSE ---
Pt. pulled off identification band and pulled out IV. Pt. continuously takes off his hospital gown and throws it on the ground. Pt. sits up despite direction to lay back down. Bed alarm is under pt. and working. Pt. continuously educated to not undress or pull items off of him. Education received by pt. for only a short amount of time.
[2024-11-20] MEDS: LORazepam INJ (*CRX) 2 MG/ML VIAL IV PUSH ×2 (11:25→17:34)
[2024-11-20 11:32] VITALS: BP 188/133; PULSE 97; RESP 16; O2SAT 97
--- NOTE | 2024-11-20 12:11 | ED.GENADULT ---
HPI - General Adult General Chief complaint: Fall Stated complaint: acting different since last noc Time Seen by Provider: 11/20/24 08:14 History of Present Illness HPI narrative: This is a 74-year-old male with severe dementia and Parkinson's on hospice care sent in for agitation. He has been on home hospice with his elderly . He has been more agitated and confused than usual. He was found on the floor of his room earlier today. His is elderly and was unable to get up off the floor and cannot deal with his needs anymore. She sent the hospital is requesting he be placed in a facility for the rest of his hospice care. Patient is A&O x1 and can provide no meaningful history to the interview. Patient is comfort measures only. Related Data Home Medications ?Medication ?Instructions ?Recorded ?Confirmed ?Last Taken ?Type atorvastatin 80 mg tablet 80 mg PO QHS 03/27/23 10/11/24 Unknown History multivitamin (Daily Multi-Vitamin 1 tablet PO DAILY 10/02/23 10/11/24 Unknown History tablet) aspirin 81 mg tablet,delayed 81 mg PO DAILY 10/16/23 10/11/24 Unknown History release (Adult Low Dose Aspirin) oxybutynin chloride 10 mg 10 mg PO DAILY 10/16/23 10/11/24 Unknown History tablet,extended release 24 hr fluticasone propionate 50 2 spray intranasal DAILY PRN 04/13/24 10/11/24 Unknown History mcg/actuation nasal spray,suspension (Flonase Allergy Relief) carbidopa 25 mg-levodopa 100 mg 1 tablet PO TID 10/11/24 10/11/24 Unknown History tablet trihexyphenidyl 2 mg tablet 1 mg PO DAILY 10/11/24 10/11/24 Unknown History PMFSH Past Medical History Medical History Urinary incontinence Dementia History of colon polyps Chronic hyponatremia Parkinson disease Anxiety BPH w/o urinary obs/LUTS CAD in [place] artery Depression Dyslipidemia Environmental allergies Essential (primary) hypertension PAD (peripheral artery disease) Prediabetes Surgical History Surgical History History of tonsillectomy (Unknown) History of angioplasty of peripheral vessel 2015 -stents in left common iliac artery LLE History of coronary artery bypass graft 2013 Social History Social History Smoking packs per day: 0.25 Smoking cigarettes per day: 5.0 Years smoked: 50 Smoking pack-years: 12.50 Smoking status: Current every day smoker Tobacco type: cigarettes Smoking end date: 08/11/16 Alcohol intake: current Substance use: never Substance use type: does not use Do You Feel Safe in your Home?: Yes Lack of Transportation: YES Lack of Food: Never True Current Housing: I Do Not Have Housing Concerned About Future Housing: No Difficulty Paying Gas/Electric Bills: No Difficulty Paying for Meds: No Currently Unemployed: No Education: Decline to Answer Difficulty w/ Childcare or Family Care: No Living arrangements: with family Occupation/Education: retired Gender identity (if verbalized by the patient): Male Sexual Orientation (if Verbalized by the Patient): Straight or Heterosexual Exam Narrative: APPEARANCE: No apparent distress. A&O x1 Head: atraumatic. EYES: EOMI, NOSE: Atraumatic NECK: Trachea midline RESPIRATORY: No increased rate of breathing CTAB CARDIOVASCULAR: RRR, ABDOMINAL: Non-distended soft nontender MUSCULOSKELETAl: No obvious deformities NEURO: Alert. Moving 4/4 extremities, rib pill rolling tremor SKIN:: Warm, dry. Normal color PSYCHIATRIC: Normal affect Course Vital Signs Vital signs: Vital Signs Temperature 98.7 F 11/20/24 08:10 Pulse Rate 106 H 11/20/24 08:10 Respiratory Rate 16 11/20/24 08:10 Blood Pressure 170/109 H 11/20/24 08:10 Pulse Oximetry 96 11/20/24 08:10 Oxygen Delivery Room Air 11/20/24 08:10 Temperature 98.7 F 11/20/24 08:10 Pulse Rate 97 11/20/24 11:32 Respiratory Rate 16 11/20/24 11:32 Blood Pressure 188/133 H 11/20/24 11:32 Pulse Oximetry 97 11/20/24 11:32 Oxygen Delivery Room Air 11/20/24 08:10 Medical Decision Making MDM Narrative Medical decision making narrative: -Course: 74-year-old with dementia on hospice/comfort measures presenting for increased agitation. I discussed his care with his . He is comfort measures only and there will be no invasive testing or imaging. Patient was given 2 mg of Ativan for agitation. He is tremulous and given his Parkinson's medications. Care coordination was consulted and they are trying to find a way to get the patient admitted at a facility although they will not be able to do that from the emergency department. Patient will be placed in observation for placement into a hospice facility. Vital Signs Vital Signs: Vital Signs Temperature 98.7 F 11/20/24 08:10 Pulse Rate 106 H 11/20/24 08:10 Respiratory Rate 16 11/20/24 08:10 Blood Pressure 170/109 H 11/20/24 08:10 Pulse Oximetry 96 11/20/24 08:10 Oxygen Delivery Room Air 11/20/24 08:10 Temperature 98.7 F 11/20/24 08:10 Pulse Rate 97 11/20/24 11:32 Respiratory Rate 16 11/20/24 11:32 Blood Pressure 188/133 H 11/20/24 11:32 Pulse Oximetry 97 11/20/24 11:32 Oxygen Delivery Room Air 11/20/24 08:10 Discharge Plan Discharge Clinical Impression: Agitation, Parkinson's disease Patient Disposition: Still a Patient Condition: Stable Patient Language: [place] Citizen Prescriptions: No Action multivitamin [Daily Multi-Vitamin] Tablet 1 tablet PO DAILY aspirin [Adult Low Dose Aspirin] 81 mg tablet,delayed release (DR/EC) 81 mg PO DAILY oxybutynin chloride 10 mg tablet extended release 24hr 10 mg PO DAILY fluticasone propionate [Flonase Allergy Relief] 50 mcg/actuation spray,suspension 2 spray intranasal DAILY PRN Rx Instructions: administer into each nostril lisinopril 20 mg tablet 20 mg PO DAILY Qty: 90 1RF (DME) depends underwear See Rx Instructions .Route .MEDSUPPLY Qty: 100 2RF Rx Instructions: As directed bupropion HCl 150 mg tablet extended release 24 hr 150 mg PO QAM Qty: 90 1RF (DME) heavy duty travel chair See Rx Instructions .Route .MEDSUPPLY Qty: 1 0RF Rx Instructions: As directed trihexyphenidyl 2 mg tablet 1 mg PO DAILY Rx Instructions: give with food (meal/snack) carbidopa-levodopa 25-100 mg tablet 1 tablet PO TID atorvastatin 80 mg tablet 80 mg PO QHS Rx Instructions: PRESCRIBED BY CARDIOLOGY cyanocobalamin (vitamin B-12) 1,000 mcg tablet, sublingual 1,000 mcg sublingual DAILY Qty: 90 1RF metoprolol tartrate 25 mg tablet 25 mg PO BID Qty: 180 1RF tamsulosin 0.4 mg capsule 0.4 mg PO QHS Qty: 100 1RF finasteride 5 mg tablet See Rx Instructions .ROUTE .COMPLEX Qty: 100 2RF Dose Instruction: TAKE 1 TABLET BY MOUTH DAILY Rx Instructions: TAKE 1 TABLET BY MOUTH DAILY sodium chloride 1,000 mg tablet,soluble 1,000 mg PO DAILY Qty: 90 1RF escitalopram oxalate [Lexapro] 20 mg tablet 20 mg PO DAILY Qty: 90 1RF Follow-up/Referrals: Perry Parker MD [Primary Care Provider] -
--- NOTE | 2024-11-20 12:22 | PM.IMHP ---
H&P: HPI History of Present Illness Date/Time: 11/20/24 12:22 Chief Complaint: Fall, Agitation Narrative: 74 y/o M with PMH of hypertension, dyslipidemia, coronary artery disease, peripheral arterial disease, BPH, Parkinson's disease, dementia, depression and anxiety presents here for evaluation post-fall and agitation. The patient presents here from home via EMS on [facility] for further evaluation post fall and for agitation. HPI obtained through chart review, EMS report, family report as the patient is A&O x1-2 at baseline. The patient had an unwitnessed fall from bed overnight. Unclear what time fall occurred and if there was prolonged down time. Per EMS, family reported concerns about patient's agitation/hallucinations. He was recently started on new medications including haloperidol, lorazepam, hyoscyamine, and acetaminophen. Since initiation of these medications, the patient has been attempting to get out of bed more often at night and has now began experiencing hallucinations. He currently lives at home with his who is also elderly, she reported concerns to the ED provider that she is no longer able to safely take care of her at home. She is requesting placement. He is currently comfort care for advanced dementia and Parkinson's. Initial VS at presentation: 98.7? F, HR 106, R 16, 170/109, and 96% on RA. ED workup showed: CXR showed no acute process. Pelvic XR showed no fractures or dislocations, joint space narrowing, subchondral sclerosis, subchondral cyst formation and osteophyte formation, compatible with moderate osteoarthritis. Ankle XR (L) showed no fractures or dislocations, joint spaces are within normal limits. Review of Systems Review of Systems: All systems reviewed & are unremarkable except as noted in HPI and below (limited, A/Ox1-2) [facility] Past Medical History Medical History Urinary incontinence Dementia History of colon polyps Chronic hyponatremia Parkinson disease Anxiety BPH w/o urinary obs/LUTS CAD in [place] artery Depression Dyslipidemia Environmental allergies Essential (primary) hypertension PAD (peripheral artery disease) Prediabetes Surgical History Surgical History History of tonsillectomy (Unknown) History of angioplasty of peripheral vessel 2016 -stents in left common iliac artery LLE History of coronary artery bypass graft 2013 Social History Social History Smoking packs per day: 0.25 Smoking cigarettes per day: 5.0 Years smoked: 50 Smoking pack-years: 12.50 Smoking status: Current every day smoker Tobacco type: cigarettes Smoking end date: 08/11/16 Alcohol intake: current Substance use: never Substance use type: does not use Do You Feel Safe in your Home?: Yes Lack of Transportation: YES Lack of Food: Never True Current Housing: I Do Not Have Housing Concerned About Future Housing: No Difficulty Paying Gas/Electric Bills: No Difficulty Paying for Meds: No Currently Unemployed: No Education: Decline to Answer Difficulty w/ Childcare or Family Care: No Living arrangements: with family Occupation/Education: retired Gender identity (if verbalized by the patient): Male Sexual Orientation (if Verbalized by the Patient): Straight or Heterosexual Meds Home Medications and Allergies Home Medications ?Medication ?Instructions ?Recorded ?Confirmed ?Type atorvastatin 80 mg tablet 80 mg PO QHS 03/27/23 10/11/24 History cyanocobalamin (vitamin B-12) 1,000 mcg sublingual DAILY #90 tabs 09/18/23 10/11/24 Rx 1,000 mcg sublingual tablet multivitamin (Daily Multi-Vitamin 1 tablet PO DAILY 10/02/23 10/11/24 History tablet) aspirin 81 mg tablet,delayed 81 mg PO DAILY 10/16/23 10/11/24 History release (Adult Low Dose Aspirin) oxybutynin chloride 10 mg 10 mg PO DAILY 10/16/23 10/11/24 History tablet,extended release 24 hr fluticasone propionate 50 2 spray intranasal DAILY PRN 04/13/24 10/11/24 History mcg/actuation nasal spray,suspension (Flonase Allergy Relief) metoprolol tartrate 25 mg tablet 25 mg PO BID #180 tabs 06/29/24 10/11/24 Rx bupropion HCl 150 mg 24 hr tablet, 150 mg PO QAM #90 tabs 07/14/24 10/11/24 Rx extended release heavy duty travel chair #1 ea 07/26/24 07/26/24 Rx tamsulosin 0.4 mg capsule 0.4 mg PO QHS #100 caps 08/20/24 10/11/24 Rx finasteride 5 mg tablet See Rx Instructions .Route 09/09/24 10/11/24 Rx .COMPLEX #100 tabs sodium chloride 1,000 mg soluble 1,000 mg PO DAILY #90 tabs 09/28/24 10/11/24 Rx tablet escitalopram oxalate 20 mg tablet 20 mg PO DAILY #90 tabs 09/29/24 10/11/24 Rx (Lexapro) carbidopa 25 mg-levodopa 100 mg 1 tablet PO TID 10/11/24 10/11/24 History tablet depends underwear #100 ea 10/11/24 10/11/24 Rx lisinopril 20 mg tablet 20 mg PO DAILY #90 tabs 10/11/24 10/11/24 Rx trihexyphenidyl 2 mg tablet 1 mg PO DAILY 10/11/24 10/11/24 History Allergies Allergy/AdvReac Type Severity Reaction Status Date / Time No Known Allergies Allergy Verified 11/20/24 12:39 Vital Signs Vital Signs - 24 hr 11/20/24 08:10 11/20/24 11:32 Temperature 98.7 F Pulse Rate 106 H 97 Respiratory Rate 16 16 Blood Pressure 170/109 H 188/133 H Pulse Oximetry 96 97 Oxygen Delivery Room Air Exam Const: Other: , male, chronically ill-appearing. Restless and furrowing brow, appears mildly discomforted. HENMT: Face/Nose/Sinus: Normal nares present Mouth: Yes moist mucous membranes Eyes: General: appearance normal, both eyes and all related structures Sclera: sclerae normal Pupils: Equal, round and reactive pupils present Resp: Effort & Inspection: normal respiratory effort Auscultation: clear to auscultation bilaterally Cardio: Rate: regular rate Rhythm: regular rhythm Other: S1-S2 present without murmur, rub, ectopy Skin: General skin exam: normal color and no rashes or lesions noted Wounds: no wounds Neuro: Other: Currently A&Ox0, nonverbal, not following directions - however received sedating medications in ED prior to exam. No eye opening to verbal or moderate physical stimuli. Moving all extremities. Gross tremor to bilateral upper extremities, varying amplitude but largely gross tremors. Extrem: General: normal to inspection Psych: Other: Grimacing, restless, mild agitation. Assessment and Plan Assessment and plan (1) Agitation: Code(s): R45.1 - Restlessness and agitation Status: Acute Assessment and Plan: Recently prescribed morphine 5 mg q.1 hour, lorazepam 1 mg q.4 hours, and Haldol 1 mg q.4-6 hours for agitation as well as hyoscyamine for secretions as he was transition to comfort care. Family voicing concerns these medications have caused patient to have increasing falls at night and hallucinations. Will exchange Hyoscyamine for Atropine SL. Exchange Haldol for Seroquel 12.5 mg HS. Continue morphine and lorazepam. Lorazepam given in the ED, tolerated well thus far. Patient is also on escitalopram 10 mg q.daily and bupropion XL 150 mg q.daily for anxiety and depression, continue. (2) Recurrent falls: Code(s): R29.6 - Repeated falls Status: Acute Assessment and Plan: Fall precautions. Multifactorial including Parkinson's and dementia. Care coordination consulted for placement, no longer comfortable taking care of patient at home due to safety risk. (3) Parkinson's disease: Qualifiers: Dyskinesia presence: unspecified whether dyskinesia Fluctuating manifestations: unspecified whether manifestations fluctuate Qualified Code(s): G20.A1 - Parkinson's disease without dyskinesia, without mention of fluctuations Code(s): G20.A1 - Parkinson's disease without dyskinesia, without mention of fluctuations Status: Chronic Assessment and Plan: Follows with Neurology at [facility]. Continue home medication: Carbidopa-levodopa 25/100 mg t.i.d. and trihexyphenidyl 1 mg p.o. daily. (4) Essential (primary) hypertension: Code(s): I10 - Essential (primary) hypertension Status: Chronic Assessment and Plan: Chronic, currently hypertensive. Recent reduction in lisinopril from 40 mg to 20 mg daily last month (October) as he was having more lower readings than high. Continue metoprolol 25 mg b.i.d.. Plan Diet: Heart healthy GI Prophylaxis: Not currently indicated DVT Prophylaxis: Not currently indicated Lines: Peripheral Code Status: DNR, comfort measures Quality If No VTE Prophylaxis Answer both mechanical and pharmacologic: Reason no mechanical VTE proph: low risk/not indicated Reason no pharmacologic proph: low risk/not indicated Hospitalist MIPS Advance Care Plan I have confirmed that the patient's Advanced Care Plan is present, code status is documented, or surrogate decision maker is listed in patient medical record.: Yes Medication Reconciliation I have utilized all available resources to obtain, update and review the patients current medications (includes all prescriptions, OTC, herbals, cannabis, and nutritional supplements).: Yes
[2024-11-20] MEDS: HYOSCYAMINE SULFATE 0.125 MG TABLET PO (12:40)
[2024-11-20] MEDS: CARBIDOPA/LEVODOPA 25/100 MG TABLET 1 TABLET PO ×2 (12:40→17:35)
[2024-11-20 12:45] VITALS: PULSE 106; RESP 25; O2SAT 97
[2024-11-20 12:57] LABS: Glucose Point of Care 92 mg/dl (65-105)
--- NOTE | 2024-11-20 13:22 | PC.NURSE ---
Pt. coughed while swallowing pills. No signs of aspiration. Pt. also required repeated verbal encouragement to swallow water. Grandaughter at bedside states this is not normal for him. Per pt. who this RN spoke with over the phone, pt. did not receive any morning meds. JANELL Faulkner notified of the above.
[2024-11-20 13:54] VITALS: BMI 25.4
[2024-11-20 14:00] VITALS: BP 144/84; PULSE 46; RESP 22; TEMP 36.2; O2SAT 90
[2024-11-20] MEDS: TRIHEXYPHENIDYL HCL 1 MG TABLET PO (14:15)
[2024-11-20] MEDS: METOPROLOL TARTRATE 25 MG TABLET PO ×2 (14:15→20:57)
[2024-11-20] MEDS: FINASTERIDE 5 MG TABLET PO (17:35)
[2024-11-20] MEDS: buPROPion HCL XL (24 HR) 150 MG TABCR PO (17:36)
[2024-11-20] MEDS: ASPIRIN 81 MG ENTERIC TABLET PO (17:36)
[2024-11-20] MEDS: MULTIVITAMINS THERAPEUTIC TAB (*BKC) 1 TABLET PO (17:38)
[2024-11-20] MEDS: CYANOCOBALAMIN 1,000 MCG TABLET 1000 MCG PO (17:38)
[2024-11-20] MEDS: ESCITALOPRAM OXALATE 10 MG TABLET 20 MG PO (17:38)
[2024-11-20] MEDS: lisinopriL 20 MG TABLET PO (17:38)
[2024-11-20] MEDS: SODIUM CHLORIDE 1 GM TABLET PO (17:38)
[2024-11-20] MEDS: oxyBUTYnin CHLORIDE XL 5 MG TAB.ER.24 10 MG PO (17:38)
[2024-11-20 20:12] LABS: Add Urine Microscopic? YES; Appearance Urine Clear (Clear); Bacteria Urine None Seen /hpf; Bilirubin Urine Negative (Negative); Blood Urine 1+ (Negative); Color Urine Yellow (Yellow); Glucose Urine UA Negative (Negative); Ketones Urine 2+ mg/dL (Negative); Leukocyte Esterase Ur Negative LEU/UL (Negative); Nitrate Urine Negative (Negative); Protein Urine Trace mg/dL (Negative); Specific Grav Ur 1.017 (1.001-1.035); Squamous Epithelial Cell Urine None Seen /hpf (Few); Urobilinogen Urine 0.2 mg/dL (<2.0); WBC Urine 0-5 /hpf (0-3)
[2024-11-20 20:57] VITALS: PULSE 64
[2024-11-20] MEDS: ATORVASTATIN 40 MG TABLET 80 MG PO (20:57)
[2024-11-20] MEDS: TAMSULOSIN HCL 0.4 MG CAPSULE PO (20:58)
[2024-11-20] MEDS: QUEtiapine FUMARATE 12.5 MG TABLET PO (21:03)
[2024-11-20 23:15] VITALS: BP 156/75; PULSE 99; RESP 22; TEMP 35.7; O2SAT 92
[2024-11-21] MEDS: LORazepam INJ (*CRX) 2 MG/ML VIAL IV PUSH ×5 (07:49→15:06)
[2024-11-21] MEDS: MORPHINE SULFATE (*CRX) 2 MG/ML INJ IV PUSH ×4 (07:52→15:07)
[2024-11-21] MEDS: CARBIDOPA/LEVODOPA 25/100 MG TABLET 1 TABLET PO (07:54)
--- NOTE | 2024-11-21 08:04 | P.PNIM_ITS ---
Progress Note: A&P Assessment and Plan (1) Agitation: Code(s): R45.1 - Restlessness and agitation Status: Acute Assessment and Plan: Recently prescribed morphine 5 mg q.1 hour, lorazepam 1 mg q.4 hours, and Haldol 1 mg q.4-6 hours for agitation as well as hyoscyamine for secretions as he was transition to comfort care. Family voicing concerns these medications have caused patient to have increasing falls at night and hallucinations. Will exchange Hyoscyamine for Atropine SL. Exchange Haldol for Seroquel 12.5 mg HS. Continue morphine and lorazepam. Lorazepam given in the ED, tolerated well thus far. Patient is also on escitalopram 10 mg q.daily and bupropion XL 150 mg q.daily for anxiety and depression, continue. (2) Recurrent falls: Code(s): R29.6 - Repeated falls Status: Acute Assessment and Plan: Fall precautions. Multifactorial including Parkinson's and dementia. Care coordination consulted for placement, no longer comfortable taking care of patient at home due to safety risk. (3) Parkinson's disease: Qualifiers: Dyskinesia presence: unspecified whether dyskinesia Fluctuating manifestations: unspecified whether manifestations fluctuate Qualified Code(s): G20.A1 - Parkinson's disease without dyskinesia, without mention of fluctuations Code(s): G20.A1 - Parkinson's disease without dyskinesia, without mention of fluctuations Status: Chronic Assessment and Plan: Follows with Neurology at [facility]. Continue home medication: Carbidopa-levodopa 25/100 mg t.i.d. and trihexyphenidyl 1 mg p.o. daily. (4) Essential (primary) hypertension: Code(s): I10 - Essential (primary) hypertension Status: Chronic Assessment and Plan: Chronic, currently hypertensive. Recent reduction in lisinopril from 40 mg to 20 mg daily last month (October) as he was having more lower readings than high. Continue metoprolol 25 mg b.i.d.. Plan Diet: Heart healthy GI Prophylaxis: Not currently indicated DVT Prophylaxis: Not currently indicated Lines: Peripheral Code Status: DNR, comfort measures Subjective Date/time seen: 11/21/24 08:04 Interval history: Pending hospice evaluation Review of Systems Review of Systems: All systems reviewed & are unremarkable except as noted in HPI and below (limited, A/Ox1-2) Exam Narrative: heart and lungs fine. gross tremor to BUE, varying in amplitude. non-verbal at present. no eye opening to verbal or moderate physical stimuli. Not following commands. Pupils 3 and equal. restless. furrowed brow. Const: Other: , male, chronically ill-appearing. Restless and furrowing brow, appear s mildly discomforted. HENMT: Face/Nose/Sinus: Normal nares present Mouth: Yes moist mucous membranes Eyes: General: appearance normal, both eyes and all related structures Sclera: sclerae normal Pupils: Equal, round and reactive pupils present Resp: Effort & Inspection: normal respiratory effort Auscultation: clear to auscultation bilaterally Cardio: Rate: regular rate Rhythm: regular rhythm Other: S1-S2 present without murmur, rub, ectopy Skin: General skin exam: normal color and no rashes or lesions noted Wounds: no wounds Neuro: Cranial nerves: Yes Equal, round and reactive pupils present Other: Currently A&Ox0, nonverbal, not following directions - however received sedating medications in ED prior to exam. No eye opening to verbal or moderate physical stimuli. Moving all extremities. Gross tremor to bilateral upper extremities, varying amplitude but largely gross tremors. Extrem: General: normal to inspection Psych: Other: Grimacing, restless, mild agitation. Objective Data Vital Signs Vital Signs: Vital Signs - 24 hr 11/20/24 08:10 11/20/24 11:32 11/20/24 12:45 Temperature 98.7 F Pulse Rate 106 H 97 106 H Respiratory Rate 16 16 25 H Blood Pressure 170/109 H 188/133 H Pulse Oximetry 96 97 97 Oxygen Delivery Room Air 11/20/24 14:00 11/20/24 20:57 11/20/24 23:15 Temperature 97.2 F L 96.3 F L Pulse Rate 46 L 64 99 Respiratory Rate 22 H 22 H Blood Pressure 144/84 H 156/75 H Pulse Oximetry 90 92 Oxygen Delivery Intake/Output Intake/Output: Intake & Output 11/18/24 11/19/24 11/20/24 11/21/24 23:59 23:59 23:59 23:59 Intake Total 50 0 Output Total 450 Balance 50 -450 Meds/Results Medications: Active Medications Generic Name Dose Route Start Last Admin Trade Name Freq PRN Reason Stop Dose Admin Acetaminophen 650 mg 11/20/24 12:52 Acetaminophen Elixir 325 Mg/10.15 Ml Udc PO Q6H PRN Mild Pain (1-3) or Fever Aspirin 81 mg 11/20/24 16:10 11/20/24 17:36 Aspirin 81 Mg Enteric Tablet PO 81 mg DAILY DOROTA Administration Atorvastatin Calcium 80 mg 11/20/24 21:00 11/20/24 20:57 Atorvastatin 40 Mg Tablet PO 80 mg QHS DOROTA Administration Atropine Sulfate 1 drop 11/20/24 12:43 Atropine Sulfate 1% Ophth Soln 5 Ml Bottle SUBLINGUAL Q4H PRN Secretions Bupropion HCl 150 mg 11/20/24 16:15 11/20/24 17:36 Bupropion Hcl Xl (24 Hr) 150 Mg Tabcr PO 150 mg QAM DOROTA Administration Carbidopa/Levodopa 1 tablet 11/20/24 17:00 11/21/24 07:54 Carbidopa/Levodopa 25/100 Mg Tablet PO 1 tablet TID DOROTA Administration Cyanocobalamin 1,000 mcg 11/20/24 16:15 11/20/24 17:38 Cyanocobalamin 1,000 Mcg Tablet PO 1,000 mcg DAILY DOROTA Administration Escitalopram Oxalate 20 mg 11/20/24 16:15 11/20/24 17:38 Escitalopram Oxalate 10 Mg Tablet PO 20 mg DAILY [facility] Administration Finasteride 5 mg 11/20/24 16:05 11/20/24 17:35 Finasteride 5 Mg Tablet PO 5 mg DAILY [facility] Administration Fluticasone Propionate 2 spray 11/20/24 16:04 Fluticasone Propionate 0.05% Na Spr 16 Gm Btl (*Bkc) NASAL DAILY PRN allergy symptoms Lisinopril 20 mg 11/20/24 16:15 11/20/24 17:38 Lisinopril 20 Mg Tablet PO 20 mg DAILY [facility] Administration Lorazepam 2 mg 11/20/24 16:05 11/21/24 07:53 Lorazepam Inj (*Crx) 2 Mg/Ml Vial IV PUSH 2 mg Q2H PRN Administration Anxiety/Comfort Metoprolol Tartrate 25 mg 11/20/24 12:55 11/20/24 20:57 Metoprolol Tartrate 25 Mg Tablet PO 25 mg Q12HR DOROTA Administration Morphine Sulfate 2 mg 11/20/24 16:05 11/21/24 07:52 Morphine Sulfate (*Crx) 2 Mg/Ml Inj IV PUSH 2 mg Q2H PRN Administration COMFORT Multivitamins Therapeutic 1 tablet 11/20/24 16:15 11/20/24 17:38 Multivitamins Therapeutic Tab (*Bkc) PO 1 tablet DAILY DOROTA Administration Naloxone HCl 0.1 mg 11/20/24 16:05 Naloxone Hcl 0.4 Mg/Ml Vial IV PUSH Q5MIN PRN Sedation Ondansetron HCl 4 mg 11/20/24 12:52 Ondansetron Inj 4 Mg/2 Ml Vial IV PUSH Q6H PRN Nausea And Vomiting Oxybutynin Chloride 10 mg 11/20/24 16:15 11/20/24 17:38 Oxybutynin Chloride Xl 5 Mg Tab.Er.24 PO 10 mg DAILY DOROTA Administration Quetiapine Fumarate 12.5 mg 11/20/24 21:00 11/20/24 21:03 Quetiapine Fumarate 12.5 Mg Tablet PO 12.5 mg HS DOROTA Administration Sodium Chloride 1 gm 11/20/24 16:15 11/20/24 17:38 Sodium Chloride 1 Gm Tablet PO 1 gm DAILY DOROTA Administration Tamsulosin HCl 0.4 mg 11/20/24 21:00 11/20/24 20:58 Tamsulosin Hcl 0.4 Mg Capsule PO 0.4 mg QHS DOROTA Administration Trihexyphenidyl HCl 1 mg 11/21/24 09:00 Trihexyphenidyl Hcl 1 Mg Tablet PO DAILY [facility] Radiology Results: ITS Impressions Chest X-Ray 11/20/24 08:41 IMPRESSION: No acute process. Labs Labs: Laboratory Results - last 24 hr 11/20/24 11/20/24 12:53 18:25 POC Capillary Glucose 92 Urine Color Yellow Urine Appearance Clear Urine pH 6.0 Ur Specific [place] 1.017 Urine Protein Trace Urine Glucose (UA) Negative Urine Ketones 2+ H Ur Blood (Man) 1+ H Urine Nitrate Negative Urine Bilirubin Negative Urine Urobilinogen 0.2 Leukocyte Esterase Rfl Negative Urine RBC 3-5 H Urine WBC 0-5 Ur Squamous Epith Cells None seen Urine Bacteria None seen Urine Casts 3-5 Hospitalist MIPS Advance Care Plan I have confirmed that the patient's Advanced Care Plan is present, code status is documented, or surrogate decision maker is listed in patient medical record.: Yes Medication Reconciliation I have utilized all available resources to obtain, update and review the patients current medications (includes all prescriptions, OTC, herbals, cannabis, and nutritional supplements).: Yes
[2024-11-21 08:30] VITALS: O2SAT 94
[2024-11-21 14:00] VITALS: BP 116/93; PULSE 85; RESP 16; TEMP 36.7; O2SAT 97
--- NOTE | 2024-11-22 17:51 | PM.DS ---
DS: Admitting Diagnosis Discharge Date 11/21/24 Admitting Diagnosis Fall, Agitation DS: Discharge Diagnosis Discharge Diagnosis (1) Agitation: Code(s): R45.1 - Restlessness and agitation Status: Acute Assessment and Plan: Recently prescribed morphine 5 mg q.1 hour, lorazepam 1 mg q.4 hours, and Haldol 1 mg q.4-6 hours for agitation as well as hyoscyamine for secretions as he was transition to comfort care. Family voicing concerns these medications have caused patient to have increasing falls at night and hallucinations. Will exchange Hyoscyamine for Atropine SL. Exchange Haldol for Seroquel 12.5 mg HS. Continue morphine and lorazepam. Lorazepam given in the ED, tolerated well thus far. Patient is also on escitalopram 10 mg q.daily and bupropion XL 150 mg q.daily for anxiety and depression, continue. (2) Recurrent falls: Code(s): R29.6 - Repeated falls Status: Acute Assessment and Plan: Fall precautions. Multifactorial including Parkinson's and dementia. Care coordination consulted for placement, no longer comfortable taking care of patient at home due to safety risk. (3) Parkinson's disease: Qualifiers: Dyskinesia presence: unspecified whether dyskinesia Fluctuating manifestations: unspecified whether manifestations fluctuate Qualified Code(s): G20.A1 - Parkinson's disease without dyskinesia, without mention of fluctuations Code(s): G20.A1 - Parkinson's disease without dyskinesia, without mention of fluctuations Status: Chronic Assessment and Plan: Follows with Neurology at [facility]. Continue home medication: Carbidopa-levodopa 25/100 mg t.i.d. and trihexyphenidyl 1 mg p.o. daily. (4) Essential (primary) hypertension: Code(s): I10 - Essential (primary) hypertension Status: Chronic Assessment and Plan: Chronic, currently hypertensive. Recent reduction in lisinopril from 40 mg to 20 mg daily last month (October) as he was having more lower readings than high. Continue metoprolol 25 mg b.i.d.. Plan Diet: Heart healthy GI Prophylaxis: Not currently indicated DVT Prophylaxis: Not currently indicated Lines: Peripheral Code Status: DNR, comfort measures DS: Summary Hospital Course Hospital Course: 74 y/o M with PMH of hypertension, dyslipidemia, coronary artery disease, peripheral arterial disease, BPH, Parkinson's disease, dementia, depression and anxiety presented to [facility] ED 11/20 for evaluation of increased agitation and confusion. He was recently started on morphine Ativan Haldol and hyoscyamine for comfort care. Since then he has been hallucinating agitated and confused. Was trying to get out of bed. He had a fall. Was brought to ED by EMS. Because he was not eating and drinking is able to interact meaningfully his family opted for inpatient hospice service for comfort care. Status at Discharge Cognitive/behavioral status at discharge: Guarded Time Spent with Patient Time attestation: Total time spent providing and/or coordinating discharge services: 45 minute Exam Narrative: heart and lungs fine. gross tremor to BUE, varying in amplitude. non-verbal at present. no eye opening to verbal or moderate physical stimuli. Not following commands. Pupils 3 and equal. restless. furrowed brow. Const: Other: , male, chronically ill-appearing. Restless and furrowing brow, appears mildly discomforted. HENMT: Face/Nose/Sinus: Normal nares present Mouth: Yes moist mucous membranes Eyes: General: appearance normal, both eyes and all related structures Sclera: sclerae normal Pupils: Equal, round and reactive pupils present Resp: Effort & Inspection: normal respiratory effort Auscultation: clear to auscultation bilaterally Cardio: Rate: regular rate Rhythm: regular rhythm Other: S1-S2 present without murmur, rub, ectopy Skin: General skin exam: normal color and no rashes or lesions noted Wounds: no wounds Neuro: Cranial nerves: Yes Equal, round and reactive pupils present Other: Currently A&Ox0, nonverbal, not following directions - however received sedating medications in ED prior to exam. No eye opening to verbal or moderate physical stimuli. Moving all extremities. Gross tremor to bilateral upper extremities, varying amplitude but largely gross tremors. Extrem: General: normal to inspection Psych: Other: Grimacing, restless, mild agitation. Discharge Plan Discharge Attending physician on discharge: Eduardo Joshua Consulting providers: Anabel Mcelroy Umar Discharging Clinician: Eduardo Joshua Patient Disposition: Hospice [facility] Inpatient Patient Language: Syriac Date of admission: 11/20/24 12:54 Primary Care Provider: Perry Parker Admitting Provider: Jered Edgar Attending physician on admission: Eduardo Joshua Condition: Stable
== END 2024-11-21 16:02 | disposition hospice, inpatient (51) ==
LOC: ANHED 12:16 → ANH3MEDSUR 11-22 07:48
PROVIDERS: Student in an Organized Health Care Education/Training Program; Admitting Provider Internal Medicine; Emergency Provider Emergency Medicine; PCP Family Medicine; Visit Provider General Practice
DX: R45.1 Restlessness and agitation (principal); R29.6 Repeated falls; G20.A1 Parkinson's disease without dyskinesia, without mention of fluctuations; F03.90 Unspecified dementia, unspecified severity, without behavioral disturbance, psychotic disturbance, mood disturbance, and anxiety; I10 Essential (primary) hypertension; R32 Unspecified urinary incontinence; N40.0 Benign prostatic hyperplasia without lower urinary tract symptoms; I25.10 Atherosclerotic heart disease of native coronary artery without angina pectoris; I73.9 Peripheral vascular disease, unspecified; R73.03 Prediabetes; E78.5 Hyperlipidemia, unspecified; F32.A Depression, unspecified; F41.9 Anxiety disorder, unspecified; Z79.899 Other long term (current) drug therapy; Z95.1 Presence of aortocoronary bypass graft; Z95.820 Peripheral vascular angioplasty status with implants and grafts
CPT/HCPCS: 71045; 72170; 73600; 81001; 82948; 96374; 96375; 96376; 99285; A9270; G0378; J2060; J2270

== ENCOUNTER 2024-11-21 16:03 | HOS | payer OTHER, MEDICARE, SELFPAY ==
--- OUTSIDE RECORDS SUMMARY | 2024-11-21 16:28 | XMS_ITS | Clinical Summary ---
Author Organization [facility] [address] Address [address] [place] [address] Care Team Providers Care Composition Weatherboard Applier Name Role Phone Gabriella Parker MD Primary [...] Type Department Care Team Description 11/10/2024 Telephone [facility] Neurology [address] [place] [address] [place] [phone] Cherry Boyd NP 11/02/2024 Telephone [facility] Neurology [address] [place] [phone] Cherry Boyd NP Patient health declining 09/07/2024 11:30 AM RADIOLOGY THERAPIST Office Visit [facility] Neurology [address] [place] [phone] Cherry Boyd NP Parkinson's disease, unspecified whether dyskinesia present, unspecified whether manifestations fluctuate (HCC) (Primary Dx); Transient alteration of awareness; Orthostatic hypotension; Dizziness; Dementia without behavioral disturbance (HCC); History of stroke; Stenosis of left carotid artery 09/07/2024 Telephone [facility] Neurology [address] [facility] [address] [place] [phone] Cherry Boyd NP pharmacy change [...] on file Legal Sex Male 4:08 AM RADIOLOGY THERAPIST Gender Identity Not on file Sexual Orientation Not on file Occupation Industry Job Start Date Job End Date Retired Not on file Not on file Not on file Obstetrics History Last Filed Vital Signs Vital Sign Reading Time Taken Comments Blood Pressure 96/50 09/07/2024 11:36 AM RADIOLOGY THERAPIST Pulse 54 09/07/2024 11:36 AM RADIOLOGY THERAPIST Temperature 36.5 C (97.7 F) 03/26/2024 10:39 AM CDT Respiratory Rate 14 03/26/2024 10:39 AM CDT Oxygen Saturation 95% 03/26/2024 2:15 PM CDT Inhaled Oxygen Concentration - - Weight 85.7 kg (189 lb) 09/07/2024 11:36 AM RADIOLOGY THERAPIST Height 182.9 cm (6') 09/07/2024 11:36 AM RADIOLOGY THERAPIST Body Mass Index 25.63 09/07/2024 11:36 AM RADIOLOGY THERAPIST Plan of Treatment Health Maintenance Due Date [...] Completed 02/23/2024 Medical Devices Implanted Type Area Medical Practitioners Device Identifier Shelf Expiration Date Model / Serial / Lot [facility] Device Closure Vascade Od5 Fr Femoral Artery [id number] - [id number] Implanted:Qty: 1 on 12/25/2023 by Jayce Reyes MD at [facility] 08/20/2025 [id number] / / [id number] Procedures Procedure Name Priority Date/Time Associated [...] to Health Maintenance Insurance UHC MEDICARE [employer] [place] Address: [facility] [address] [place] [address] [id number] MED[facility] [place] Address: [address] [address] [place] [address] [employer] MEDICARE [employer] [place] [place] Address: [address] [address] [place] [address] Care Teams Composition Weatherboard Applier Relationship Specialty Start Date End Date Gabriella Parker MD PCP - General Family Practice 12/16/18
--- OUTSIDE RECORDS SUMMARY | 2024-11-21 16:28 | XMS_ITS | Clinical Summary ---
Author Organization Unknown Care Team Providers Care Branch Or Department Chief Librarian Name Role Phone JIAN HANCOCK Unavailable Unavailable NEVA SPIRITUAL CARE COUNSELOR, TIERNEY Unavailabl e Unavailable LAWANDA LEHMAN Unavailable Unavailable CAILIN REGISTERED NURSE, AFTER HOURS, MADDISON Gavin ailable Unavailable YONG HOSPICE STATOR WINDER, SANDI Unavailable Unavai lable Payers Payer Name Policy Type Policy Number Effective Date Expira tion Date MEDICARE [place] [id number] [facility] [id number] Problems Condition Name Condition Details Condition Category Status Onset Date Resolution Date Last Treatment Date Treating Clinician Comments PARKINSON'S DIS W/O DYSKINESIA, W/O MENTION OF FLUCTUATIONS Active 11-13 00:00: 00 ALZHEIMER'S DISEASE, UNSPECIFIED Active 11-13 00:00: 00 DEM IN OTH DIS CLASSD ELSWHR,UNSP SEV,W/O BEH/PSYCH/MO OD/ANX Active 11-13 00:00: 00 ESSENTIAL (PRIMARY) HYPERTENSION Active 11-13 00:00: 00 ATHSCL HEART DISEASE OF [place] CORONARY ARTERY W/O ANG PCTRS Active 11-13 [...] mg rectal suppository 11-13 00:00: 00 Yes [id number] MILD PAIN / FEVER 1 supposi tory, rectal EVERY 4 HOURS 1 suppositor y, rectal EVERY 4 HOURS (route: rectal) Med Classific ation: Analgesic , Anti-infl ammatory or Antipyret ic bisacodyl 10 mg rectal suppository 11-13 00:00: 00 Yes [id number] CONSTIPATIO N 1 supposi tory, rectal DAILY 1 suppositor y, rectal DAILY (route: rectal) Med Classific ation: Gastroint estinal Therapy Agents haloperidol lactate 2 mg/mL oral concentrate 11-13 00:00: 00 Yes [id number] SEVERE AGITATION / NAUSEA / VOMITING 0.5 mL EVERY 4 HOURS 0.5 mL EVERY 4 HOURS (route: oral) Med Classific ation: Central Nervous System Agents hyoscyamine 0.125 mg sublingual tablet 11-13 00:00: 00 Yes [id number] EXCESSIVE SECRETIONS 1 tablet EVERY 4 HOURS 1 tablet EVERY 4 HOURS (route: sublingual ) Med Classific ation: Gastroint estinal Therapy Agents lorazepam 1 mg tablet 11-13 00:00: 00 Yes [id number] ANXIETY / RESTLESSNES S 1 tablet EVERY 4 HOURS 1 tablet EVERY 4 HOURS (route: oral) Med Classific ation: Central Nervous System Agents morphine concentrate 100 mg/5 mL (20 mg/mL) oral solution 11-13 00:00: 00 Yes [id number] PAIN / SHORTNESS OF BREATH 0.25 mL HOURLY 0.25 mL HOURLY (route: oral) Med Classific ation: Analgesic , Anti-infl ammatory or Antipyret ic oxygen gas for inhalation 11-13 00:00: 00 Yes [id number] SOB 2 Liter NEEDED 2 Liter A [...] Planned Date Details Comments Future Scheduled Test POSTPARTUM RN TO EVALUATE PATIENT AND DEVELOP A NURSING PLAN OF CARE. [code = POSTPARTUM RN TO EVALUATE PATIENT AND DEVELOP A NURSING [...] DESIGNED TO ENHANCE THE PATIENT'S WELL BEING. MEETING/EVENT PLANNER REFERRAL NEEDED. [code = HOSPICE NURSE TO ASSESS CURRENT DEGREE OF DEPRESSION AND PROVIDE THERAPEUTIC INTERVENTIONS/INSTRUCTIONS DESIGNED TO ENHANCE THE PATIENT'S WELL BEING. MEETING/EVENT PLANNER REFERRAL NEEDED.] Future Scheduled Test HOSPICE NU [...] DEVELOP A PLAN OF CARE. [code = INSOLE BEVELER TO EVALUATE SOCIAL, EMOTIONAL AND FINANCIAL FACTORS RELATED TO THE PATIENT'S ILLNESS, NEED FOR ADDITIONAL CARE/RESOURCES, ADJUSTMENT TO CARE AND DEVELOP A PLAN OF CARE.] Future Scheduled Test PARIMUTUEL CLERK T O EVALUATE PATIENT/FAMILY/CAREGIVER AND DEVELOP A PLAN OF CARE. [code = PARIMUTUEL CLERK TO EVALUATE PATIENT/FAMILY/CAREGIVER AND DEVELOP A PLAN [...] DYING PROCESS Goal Provider Goal - A INSOLE BEVELER PLAN OF CARE WILL BE ESTABLISHED. Goal Provider Goal - A PARIMUTUEL CLERK PLAN OF CARE WILL BE ESTABLISHED. Goal Provider Goal - MEDICATIONS WILL BE MANAGED APPROPRIATELY EVIDENCED BY STEADY SYMPTOM CONTROL. PATIENT/CAREGIVER WILL VERBALIZE/DEMONSTRATE COMPLIANCE WITH MEDICATION REGIMEN. Goal Provider Goal - PATIENT WILL HAVE SAFETY NEEDS MET Goal Provider Goal - CHANGES IN NEUROLOGIC STATUS WILL BE ADDRESSED APPROPRIATELY. Reason for Visit MAXIMUM ASSIST WITH TRANSFER/AMBULATION/ADLS Progress Notes Progress Notes <paragraph>[Visit Date: 2024 [...] TO COME TWICE WEEKLY. WILL SPEAK WITH LEG BREAKER IN REGARDS TO THIS REQUEST. PATIENTS SPOUSE THOUGHT HOSPICE SERVICES WERE TO HELP WITH BEING A CAREGIVER AND COME DAILY FOR SEVERAL HOURS A DAY. SPOKE WITH SPOUSE ABOUT WHAT MEDICATIONS SHE WAS TALKING TO JOHNATHAN WEBBER ABOUT. SPOUSE STATES SHE WAS NOT AWARE THE MEDICATIONS FOR HALLUCINATIONS AT NIGHT WERE SENT TO THE PHARMACY. VERIFIED PHARMACY PREFERENCE WITH SPOUSE AND SHE STATES HEIDIMARIO AND THEN SHOWED THIS NURSE WHERE STACEY HAD CONTACTED HER VIA TEXT STATING 2 MEDICATIONS WERE READY FOR SEC ACCOUNTANT THIS AM. SPOUSE STATES SHE WAS UNSURE [...] OR CONCERNS.</paragraph> <paragraph>[Visit Date: 2024 by SANDI YONG [facility]]:</paragraph><paragraph>PT WAS SITTING IN RECLINER UPON ARRIVAL. ADLS PER PATIENT CARE PLAN WERE NOT PERFORMED. PT ALREADY SHOWERED UPON ARRIVAL. PT IS HER WITH SPOUSE AND GRANDSON. NO CONCERNS AT THIS TIME.</paragraph> <paragraph>[Visit Date: 2024 by TIERNEY HOOKS SPIRITUAL CARE COUNSELOR]:</paragraph><paragraph>PARIMUTUEL CLERK VISITED WITH PT TODAY TO PROVIDE ANY NEEDED SPIRITUAL OR EMOTIONAL SUPPORT AND TO COMPLETE SPIRITUAL ASSESSMENT. PT IS CONFUSED AT TIMES BUT DID RESPOND TO SOME QUESTIONS. PT AND SPOUSE HAVE MORMONISM PATRICK BACKGROUND BUT ARE NOT ABLE TO ATTEND HOLINESS SERVICES. THEY RECEIVE SUPPORT FROM FRIENDS AND NEIGHBORS BUT SPOUSE REPORTS FEELING OVERWHELMED WITH PT CARE. VISIT FREQUENCY WILL BE ONE TIME PER MONTH FOR SPIRITUAL AND EMOTIONAL SUPPORT NEEDED.</paragraph> <paragraph>[Visit Date: 2024 by MADDISON SIMEON REGISTERED NURSE, AFTER HOURS]:</paragraph><paragraph>CALL PLACED TO PT SPOUSE STEPHANIE TO ARRANGE TODAYS VISIT. STEPHANIE PRESENT THROUGHOUT VISIT.</paragraph> <paragraph>[Visit Date: 2024 by LAWANDA [facility]]:</paragraph><paragraph>SW MET BY SPOUSE, STEPHANIE. PT, JORGE LUIS, [...] ALSO POOR. THEY DO NOT HAVE A TEMPLE HERE. THEY VIEW THEMSELVES PENECOSTAL. SW WILL FOLLOW UP ON HOMEMAKING SERVICES. THERE ARE NO FINAL ARRANGEMENTS AT THIS TIME. SW WILL CONTINUE TO MONITOR FOR NEEDS AND CONCERNS.</paragraph> Encounters Start Date/Time End Date/Time Encounter Type Admission Type Attending Clinicians Care Facility Care Department Encounter ID Discharge Date Discharge Status Discharge Condition Discharge Reason Percent Goals Met 2024-11-13 00:00:00 2024-11-20 00:00:00 Outpatient NEW ADMISSION MADDISON SIMEON [facility] [id number] 00:00:00 DISCHARGED /TRANSFERR ED TO A SHORT-TERM [facility] MAXIMUM ASSIST WITH TRANSFER/A MBULATION/ ADLS PATIENT WAS ADMITTED TO A NON-CONTRA CTED FACILITY 22.64
--- OUTSIDE RECORDS SUMMARY | 2024-11-21 16:28 | XMS_ITS | Clinical Summary ---
Author Organization Unknown Care Team Providers Care Loader Technician Name Role Phone JIAN HANCOCK Unavailable Unavailable NEVA SPIRITUAL CARE COUNSELOR, TIERNEY Unavailabl e Unavailable LAWANDA LEHMAN Unavailable Unavailable CAILIN REGISTERED NURSE, AFTER HOURS, MADDISON Gavin ailable Unavailable YONG HOSPICE COOPER APPRENTICE, SANDI Unavailable Unavai lable Payers Payer Name Policy Type Policy Number Effective Date Expira tion Date MEDICARE [place] [id number] [facility] COMMERCIAL [id number] Problems Condition Name Condition Details Condition Category Status Onset Date Resolution Date Last Treatment Date Treating Clinician Comments PARKINSON'S DIS W/O DYSKINESIA, W/O MENTION OF FLUCTUATIONS Active 11-13 00:00: 00 ALZHEIMER'S DISEASE, UNSPECIFIED Active 11-13 00:00: 00 DEM IN OTH DIS CLASSD ELSWHR,UNSP SEV,W/O BEH/PSYCH/MO OD/ANX Active 11-13 00:00: 00 ESSENTIAL (PRIMARY) HYPERTENSION Active 11-13 00:00: 00 ATHSCL HEART DISEASE OF [place] CORONARY ARTERY W/O ANG PCTRS Active 11-13 [...] mg rectal suppository 11-13 00:00: 00 Yes [id number] MILD PAIN / FEVER 1 supposi tory, rectal EVERY 4 HOURS 1 suppositor y, rectal EVERY 4 HOURS (route: rectal) Med Classific ation: Analgesic , Anti-infl ammatory or Antipyret ic bisacodyl 10 mg rectal suppository 11-13 00:00: 00 Yes [id number] CONSTIPATIO N 1 supposi tory, rectal DAILY 1 suppositor y, rectal DAILY (route: rectal) Med Classific ation: Gastroint estinal Therapy Agents haloperidol lactate 2 mg/mL oral concentrate 11-13 00:00: 00 Yes [id number] SEVERE AGITATION / NAUSEA / VOMITING 0.5 mL EVERY 4 HOURS 0.5 mL EVERY 4 HOURS (route: oral) Med Classific ation: Central Nervous System Agents hyoscyamine 0.125 mg sublingual tablet 11-13 00:00: 00 Yes [id number] EXCESSIVE SECRETIONS 1 tablet EVERY 4 HOURS 1 tablet EVERY 4 HOURS (route: sublingual ) Med Classific ation: Gastroint estinal Therapy Agents lorazepam 1 mg tablet 11-13 00:00: 00 Yes [id number] ANXIETY / RESTLESSNES S 1 tablet EVERY 4 HOURS 1 tablet EVERY 4 HOURS (route: oral) Med Classific ation: Central Nervous System Agents morphine concentrate 100 mg/5 mL (20 mg/mL) oral solution 11-13 00:00: 00 Yes [id number] PAIN / SHORTNESS OF BREATH 0.25 mL HOURLY 0.25 mL HOURLY (route: oral) Med Classific ation: Analgesic , Anti-infl ammatory or Antipyret ic oxygen gas for inhalation 11-13 00:00: 00 Yes [id number] SOB 2 Liter NEEDED 2 Liter A [...] Planned Date Details Comments Future Scheduled Test POLICE INSPECTOR TO EVALUATE PATIENT AND DEVELOP A NURSING PLAN OF CARE. [code = POLICE INSPECTOR TO EVALUATE PATIENT AND DEVELOP A NURSING [...] DESIGNED TO ENHANCE THE PATIENT'S WELL BEING. [place] KNITTER REFERRAL NEEDED. [code = HOSPICE NURSE TO ASSESS CURRENT DEGREE OF DEPRESSION AND PROVIDE THERAPEUTIC INTERVENTIONS/INSTRUCTIONS DESIGNED TO ENHANCE THE PATIENT'S WELL BEING. [place] KNITTER REFERRAL NEEDED.] Future Scheduled Test HOSPICE NU [...] DEVELOP A PLAN OF CARE. [code = COMMERCIAL KITCHEN SERVICE TECHNICIAN TO EVALUATE SOCIAL, EMOTIONAL AND FINANCIAL FACTORS RELATED TO THE PATIENT'S ILLNESS, NEED FOR ADDITIONAL CARE/RESOURCES, ADJUSTMENT TO CARE AND DEVELOP A PLAN OF CARE.] Future Scheduled Test AIR BOX TESTER T O EVALUATE PATIENT/FAMILY/CAREGIVER AND DEVELOP A PLAN OF CARE. [code = AIR BOX TESTER TO EVALUATE PATIENT/FAMILY/CAREGIVER AND DEVELOP A PLAN [...] DYING PROCESS Goal Provider Goal - A COMMERCIAL KITCHEN SERVICE TECHNICIAN PLAN OF CARE WILL BE ESTABLISHED. Goal Provider Goal - A AIR BOX TESTER PLAN OF CARE WILL BE ESTABLISHED. Goal [...] TO COME TWICE WEEKLY. WILL SPEAK WITH BIOMEDICAL FIELD SERVICE ENGINEER IN REGARDS TO THIS REQUEST. PATIENTS SPOUSE [...] TEXT STATING 2 MEDICATIONS WERE READY FOR SENIOR TRIAL ATTORNEY THIS AM. SPOUSE STATES SHE WAS UNSURE [...] CONCERNS.</paragraph> <paragraph>[Visit Date: 2024 by SANDI YONG [facility]]:</paragraph><paragraph>PT WAS SITTING IN RECLINER UPON ARRIVAL. ADLS PER PATIENT CARE PLAN WERE NOT PERFORMED. PT ALREADY SHOWERED UPON ARRIVAL. PT IS HER WITH SPOUSE AND GRANDSON. NO CONCERNS AT THIS TIME.</paragraph> <paragraph>[Visit Date: 2024 by TIERNEY HOOKS SPIRITUAL CARE COUNSELOR]:</paragraph><paragraph>AIR BOX TESTER VISITED WITH PT TODAY TO PROVIDE ANY NEEDED SPIRITUAL OR EMOTIONAL SUPPORT AND TO COMPLETE SPIRITUAL ASSESSMENT. PT IS CONFUSED AT TIMES BUT DID RESPOND TO SOME QUESTIONS. PT AND SPOUSE HAVE CONFUCIANISM PATRICK BACKGROUND BUT ARE NOT ABLE TO ATTEND EPISCOPAL SERVICES. THEY RECEIVE SUPPORT FROM FRIENDS AND NEIGHBORS BUT SPOUSE REPORTS FEELING OVERWHELMED WITH PT CARE. VISIT FREQUENCY WILL BE ONE TIME PER MONTH FOR SPIRITUAL AND EMOTIONAL SUPPORT NEEDED.</paragraph> <paragraph>[Visit Date: 2024 by MADDISON SIMEON REGISTERED NURSE, AFTER HOURS]:</paragraph><paragraph>CALL PLACED TO PT SPOUSE STEPHANIE TO ARRANGE TODAYS VISIT. STEPHANIE PRESENT THROUGHOUT VISIT.</paragraph> <paragraph>[Visit Date: 2024 by LAWANDA [facility]</paragraph><paragraph>SW MET BY SPOUSE, STEPHANIE. PT, JORGE LUIS, [...] ALSO POOR. THEY DO NOT HAVE A MORMONISM HERE. THEY VIEW THEMSELVES PENECOSTAL. SW WILL [...] 2024-11-20 00:00:00 Outpatient NEW ADMISSION MADDISON SIMEON [facility] [id number] 00:00:00 DISCHARGED /TRANSFERR ED TO A SHORT-TERM [facility] MAXIMUM ASSIST WITH TRANSFER/A MBULATION/ ADLS PATIENT WAS ADMITTED TO A NON-CONTRA CTED FACILITY 22.64
--- OUTSIDE RECORDS SUMMARY | 2024-11-21 16:28 | XMS_ITS | Encounter Summary ---
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
--- OUTSIDE RECORDS SUMMARY | 2024-11-21 16:28 | XMS_ITS | Clinical Summary ---
Author Organization [facility] Address [address] [place] [id number] Care Team Providers Care Blindstitch Hemmer Name Role Phone Arie Lemus MD Primary Care Provider [phone] Lv Yepez MD Unavailable Medications aspirin 325 [...] Screening Colonoscopy (10 Years) 1950 Pneumococcal Vaccine: 50+ Years (1 of 2 - PCV) 02/02/1956 [...] Name:Jay Shah Payer ID:[id number] (NAIC) Type:Indemnity Address: [place] [phone] Care Teams Blindstitch Hemmer Relationship Specialty Start Date End Date Arie Lemus MD [address] [place] [address] PCP - General INTERNAL MEDICINE 03/11/16 Lv Yepez MD [address] [address] [place] CARDIOVASCULAR DISEASE 03/11/16
--- OUTSIDE RECORDS SUMMARY | 2024-11-21 16:28 | XMS_ITS | Referral Summary ---
Author Organization [facility] [address] Address [address] [place] [address] Care Team Providers Care Casting Technician Name Role Phone Gabriella Parker MD Primary Care Provider Encounters Date Type Department Care Team Description 11/10/2024 Telephone [facility] Neurology [address] [place] [address] [place] [phone] Cherry Boyd NP 11/02/2024 Telephone [facility] Neurology [address] [place] [address] [place] [phone] Cherry Boyd NP Patient health declining 09/07/2024 Telephone [facility] Neurology [address] [place] [address] [place] [phone] Cherry Boyd NP pharmacy change (pimavanserin (Nuplazid) 34 mg) 09/07/2024 11:30 AM ANIMAL CAREGIVER Office Visit [facility] Neurology [address] [place] [address] [place] [phone] Cherry Boyd NP Parkinson's disease, unspecified whether [...] on file Legal Sex Male 4:08 AM ANIMAL CAREGIVER Gender Identity Not on file Sexual Orientation Not on file Occupation Industry Job Start Date Job End Date Retired Not on file Not on file Not on file Last Filed Vital Signs Vital Sign Reading Time Taken Comments Blood Pressure 96/50 09/07/2024 11:36 AM ANIMAL CAREGIVER Pulse 54 09/07/2024 11:36 AM ANIMAL CAREGIVER Temperature 36.5 C (97.7 F) 03/26/2024 10:39 AM CDT Respiratory Rate 14 03/26/2024 10:39 AM CDT Oxygen Saturation 95% 03/26/2024 2:15 PM CDT Inhaled Oxygen Concentration - - Weight 85.7 kg (189 lb) 09/07/2024 11:36 AM ANIMAL CAREGIVER Height 182.9 cm (6') 09/07/2024 11:36 AM ANIMAL CAREGIVER Body Mass Index 25.63 09/07/2024 11:36 AM ANIMAL CAREGIVER Plan of Treatment Not on file Medical Devices Implanted Type Area Boiler Plant Operator Device Identifier Shelf Expiration Date Model / Serial / Lot [employer] Device Closure Vascade Od5 Fr Femoral Artery [id number] - [id number] Implanted:Qty: 1 on 12/25/2023 by Jayce Reyes MD at [facility] 08/20/2025 [id number] / / [id number] Procedures Procedure Name Priority Date/Time Associated [...] Most Recently Relevant to Health Maintenance Insurance [facility] MEDICARE ADVANTAGE [facility] MEDIC[facility] ADVANTAGE [facility] MEDIC[facility] ADVANTAGE Care Teams Casting Technician Relationship Specialty Start Date End Date Gabriella Parker MD PCP - General Family Practice 12/16/18
[2024-11-21] MEDS: MORPHINE SULFATE (*CRX) 4 MG/ML INJ IV PUSH (16:43)
[2024-11-21 16:48] VITALS: BMI 25.4
[2024-11-21 17:06] VITALS: PULSE 84; RESP 15
[2024-11-21] MEDS: MORPHINE SULFATE INJ (*CRX) 50 MG in SODIUM CHLORIDE 0.9% IV 95 ML IV CONT (17:06)
--- NOTE | 2024-11-21 19:05 | P.HP_ITS ---
H&P: HPI History of Present Illness Date/Time: 11/21/24 19:05 Chief Complaint: Uncontrolled agitation Narrative: 74 y/o M with PMH of hypertension, dyslipidemia, coronary artery disease, peripheral arterial disease, BPH, Parkinson's disease, dementia, depression and anxiety presented to [facility] ED 11/20 for evaluation of increased agitation and confusion. He was recently started on morphine Ativan Haldol and hyoscyamine for comfort care. Since then he has been hallucinating agitated and confused. Was trying to get out of bed. He had a fall. Was brought to ED by EMS. Because he was not eating and drinking is able to interact meaningfully his family opted for inpatient hospice service for comfort care. Review of Systems Review of Systems: ROS unobtainable: Yes unobtainable due to medical condition PMFSH Past Medical History Medical History Urinary incontinence Dementia History of colon polyps Chronic hyponatremia Parkinson disease Anxiety BPH w/o urinary obs/LUTS CAD in [place] artery Depression Dyslipidemia Environmental allergies Essential (primary) hypertension PAD (peripheral artery disease) Prediabetes Surgical History Surgical History History of tonsillectomy (Unknown) History of angioplasty of peripheral vessel 2016 -stents in left common iliac artery LLE History of coronary artery bypass graft 2012 Family History Family History Father No problems noted. Mother No problems noted. Social History Social History Smoking packs per day: 0.25 Smoking cigarettes per day: 5.0 Years smoked: 50 Smoking pack-years: 12.50 Smoking status: Never smoker Tobacco type: cigarettes Second hand tobacco smoke exposure: No Smoking end date: 08/11/16 Alcohol intake: never Substance use: never Substance use type: does not use Do You Feel Safe in your Home?: Yes Lack of Transportation: No Lack of Food: Never True Current Housing: I Have Housing Concerned About Future Housing: No Difficulty Paying Gas/Electric Bills: No Difficulty Paying for Meds: No Currently Unemployed: No Education: Decline to Answer Difficulty w/ Childcare or Family Care: No Living arrangements: with family Occupation/Education: retired Gender identity (if verbalized by the patient): Male Sexual Orientation (if Verbalized by the Patient): Straight or Heterosexual Spiritual care concerns: No Meds Home Medications and Allergies Home Medications ?Medication ?Instructions ?Recorded ?Confirmed ?Type heavy duty travel chair #1 ea 07/26/24 11/20/24 Rx depends underwear #100 ea 10/11/24 11/20/24 Rx Allergies Allergy/AdvReac Type Severity Reaction Status Date / Time No Known Allergies Allergy Verified 11/20/24 12:39 Vital Signs Vital Signs - 24 hr 11/21/24 16:56 11/21/24 17:06 Pulse Rate 84 Respiratory Rate 15 Oxygen Delivery Room Air Exam Narrative: HEENT: pharyngeal mucosa dry and intact NECK: No JVD CHEST: Clear to auscultation. Normal effort HEART: NL S1/S2, regular, no murmur ABDOMEN: BS hypoactive, soft, nontender, no mass, no bruits EXTREMITIES: No edema NEUROLOGIC: CN symmetric to inspection. MUSCULOSKELETAL: No gross deformity to visual inspection PSYCH: Unresponsive to verbal or tactile stimuli Assessment and Plan Assessment and plan (1) Hospice care: Code(s): Z51.5 - Encounter for palliative care Status: Acute Assessment and Plan: * Meet inpatient hospice criteria acquired continuous IV morphine and scheduled IV Ativan for control of presumed pain and agitation * PRN palliative regimen ordered (2) Parkinson disease: Qualifiers: Dyskinesia presence: without dyskinesia Fluctuating manifestations: without fluctuating manifestations Qualified Code(s): G20.A1 - Parkinson's disease without dyskinesia, without mention of fluctuations Code(s): G20 - Parkinson's disease Status: Acute (3) Dementia: Qualifiers: Dementia type: Alzheimer's Alzheimer's disease onset: unspecified onset Dementia severity: moderate Dementia behavioral or psychological symptom: without behavioral, psychotic, or mood disturbance or anxiety Qualified Code(s): G30.9 - Alzheimer's disease, unspecified; F02.B0 - Dementia in other diseases classified elsewhere, moderate, without behavioral disturbance, psychotic disturbance, mood disturbance, and anxiety Code(s): F03.90 - Unspecified dementia, unspecified severity, without behavioral dist urbance, psychotic disturbance, mood disturbance, and anxiety Status: Acute (4) Agitation: Code(s): R45.1 - Restlessness and agitation Status: Acute (5) Essential (primary) hypertension: Code(s): I10 - Essential (primary) hypertension Status: Chronic (6) CAD in [place] artery: Code(s): I25.10 - Atherosclerotic heart disease of [place] coronary artery without angina pectoris Status: Acute (7) PAD (peripheral artery disease): Code(s): I73.9 - Peripheral vascular disease, unspecified Status: Acute (8) Recurrent falls: Code(s): R29.6 - Repeated falls Status: Acute
[2024-11-21 21:24] VITALS: PULSE 86; RESP 22; TEMP 36.3; O2SAT 93
[2024-11-21] MEDS: ARTIFICIAL TEARS OPHTH SOLN 15 ML BOTTLE 1 DROP EACH EYE (21:45)
[2024-11-22] MEDS: MORPHINE SULFATE (*CRX) 4 MG/ML INJ IV PUSH ×3 (02:25→10:10)
[2024-11-22] MEDS: LORazepam INJ (*CRX) 2 MG/ML VIAL IV PUSH ×5 (04:33→21:22)
[2024-11-22] MEDS: ARTIFICIAL TEARS OPHTH SOLN 15 ML BOTTLE 1 DROP EACH EYE ×4 (04:37→21:23)
[2024-11-22 13:00] VITALS: BP 74/50; PULSE 93; RESP 14; TEMP 36.6; O2SAT 93
[2024-11-22] MEDS: MORPHINE SULFATE INJ (*CRX) 50 MG in SODIUM CHLORIDE 0.9% IV 95 ML 8 MG IV CONT (14:22)
--- NOTE | 2024-11-22 16:42 | P.PNIM_ITS ---
Progress Note: A&P Assessment and Plan (1) Hospice care: Code(s): Z51.5 - Encounter for palliative care Status: Acute Assessment and Plan: * Meet inpatient hospice criteria acquired continuous IV morphine and scheduled IV Ativan for control of presumed pain and agitation * PRN palliative regimen ordered * 12/02/2024 required increased morphine due to dyspnea (2) Parkinson disease: Qualifiers: Dyskinesia presence: without dyskinesia Fluctuating manifestations: without fluctuating manifestations Qualified Code(s): G20.A1 - Parkinson's disease without dyskinesia, without mention of fluctuations Code(s): G20 - Parkinson's disease Status: Acute (3) Dementia: Qualifiers: Dementia type: Alzheimer's Alzheimer's disease onset: unspecified onset Dementia severity: moderate Dementia behavioral or psychological symptom: without behavioral, psychotic, or mood disturbance or anxiety Qualified Code(s): G30.9 - Alzheimer's disease, unspecified; F02.B0 - Dementia in other diseases classified elsewhere, moderate, without behavioral disturbance, psychotic disturbance, mood disturbance, and anxiety Code(s): F03.90 - Unspecified dementia, unspecified severity, without behavioral disturbance, psychotic disturbance, mood disturbance, and anxiety Status: Acute (4) Agitation: Code(s): R45.1 - Restlessness and agitation Status: Acute (5) Essential (primary) hypertension: Code(s): I10 - Essential (primary) hypertension Status: Chronic (6) CAD in [place] artery: Code(s): I25.10 - Atherosclerotic heart disease of [place] coronary artery without angina pectoris Status: Acute (7) PAD (peripheral artery disease): Code(s): I73.9 - Peripheral vascular disease, unspecified Status: Acute (8) Recurrent falls: Code(s): R29.6 - Repeated falls Status: Acute Subjective Date/time seen: 11/22/24 16:42 Interval history: Remains comfortable after morphine increase this AM. Was having grunting respirations with tachypnea. Review of Systems Review of Systems: ROS unobtainable: Yes unobtainable due to medical condition Exam 2 Narrative: HEENT: pharyngeal mucosa dry and intact NECK: No JVD CHEST: Coarse BS, mildly tachypneic HEART: NL S1/S2, regular, no murmur ABDOMEN: BS hypoactive, soft, nontender, no mass, no bruits EXTREMITIES: No edema NEUROLOGIC: CN symmetric to inspection. MUSCULOSKELETAL: No gross deformity to visual inspection PSYCH: Unresponsive to verbal or tactile stimuli Objective Data Vital Signs Vital Signs: Vital Signs - 24 hr 11/21/24 16:56 11/21/24 17:06 11/21/24 20:00 Temperature Pulse Rate 84 Respiratory Rate 15 Blood Pressure Pulse Oximetry Oxygen Delivery Room Air Room Air 11/21/24 21:24 11/22/24 08:00 11/22/24 13:00 Temperature 97.4 F L 97.9 F Pulse Rate 86 93 Respiratory Rate 22 H 14 Blood Pressure 74/50 L Pulse Oximetry 93 93 Oxygen Delivery Room Air 11/22/24 13:00 Temperature Pulse Rate Respiratory Rate Blood Pressure Pulse Oximetry 93 Oxygen Delivery Room Air Intake/Output Intake/Output: Intake & Output 11/19/24 11/20/24 11/21/24 11/22/24 23:59 23:59 23:59 23:59 Intake Total 99.2 Output Total 150 Balance -150 99.2 Meds/Results Medications: Active Medications Generic Name Dose Route Start Last Admin Trade Name Freq PRN Reason Stop Dose Admin Acetaminophen 650 mg 11/21/24 16:46 Acetaminophen 650 Mg Suppository RECTAL Q4H PRN Fever Artificial Tears 1 drop 11/21/24 22:00 11/22/24 04:37 Artificial Tears Ophth Soln 15 Ml Bottle EACH EYE 1 drop Q8HR DOROTA Administration Artificial Tears 1 drop 11/21/24 16:44 Artificial Tears Ophth Soln 15 Ml Bottle EACH EYE PRN PRN Dry Eye(s) Bisacodyl 10 mg 11/21/24 16:46 Bisacodyl 10 Mg Suppository RECTAL QAM PRN Constipation Glycopyrrolate 0.1 mg 11/21/24 16:45 Glycopyrrolate Inj (*Sp) 0.2 Mg/Ml Vial IV PUSH Q4H PRN EXCESS SECRETIONS Morphine Sulfate 50 mg/ Sodium 100 mls @ 8 mls/hr 11/21/24 16:45 11/22/24 14:22 Chloride IV CONT 4 mg/hr .[id number] DOROTA 8 mls/hr Administration 4 MG/HR Lorazepam 2 mg 11/21/24 16:44 11/22/24 10:09 Lorazepam Inj (*Crx) 2 Mg/Ml Vial IV PUSH 2 mg Q2H PRN Administration RESTLESSNESS/AGITATION Lorazepam 2 mg 11/22/24 13:00 11/22/24 12:39 Lorazepam Inj (*Crx) 2 Mg/Ml Vial IV PUSH 2 mg Q4HR DOROTA Administration Morphine Sulfate 4 mg 11/21/24 16:41 11/22/24 10:10 Morphine Sulfate (*Crx) 4 Mg/Ml Inj IV PUSH 4 mg Q2H PRN Administration Pain Prochlorperazine Edisylate 10 mg 11/21/24 16:45 Prochlorperazine Edisylate 10 Mg/2 Ml Vial IV PUSH Q4H PRN Nausea And Vomiting
[2024-11-22 20:00] VITALS: BP 89/45; PULSE 91; RESP 12; TEMP 36.9; O2SAT 91
[2024-11-23 01:18] VITALS: RESP 16
[2024-11-23] MEDS: MORPHINE SULFATE INJ (*CRX) 50 MG in SODIUM CHLORIDE 0.9% IV 95 ML 8 MG IV CONT ×2 (01:18→13:58)
[2024-11-23] MEDS: LORazepam INJ (*CRX) 2 MG/ML VIAL IV PUSH ×6 (01:18→22:03)
[2024-11-23 08:00] VITALS: BP 93/51; PULSE 97; RESP 10; TEMP 35.6; O2SAT 88
[2024-11-23] MEDS: ARTIFICIAL TEARS OPHTH SOLN 15 ML BOTTLE 1 DROP EACH EYE ×3 (13:30→22:04)
--- NOTE | 2024-11-23 16:45 | P.PNIM_ITS ---
Progress Note: A&P Assessment and Plan (1) Hospice care: Code(s): Z51.5 - Encounter for palliative care Status: Acute Assessment and Plan: * Meet inpatient hospice criteria acquired continuous IV morphine and scheduled IV Ativan for control of presumed pain and agitation * PRN palliative regimen ordered * 12/02/2024 required increased morphine due to dyspnea * 12/03/2024 declining with hypotension, hypoxia, hypothermia, and too unstable to transfer (2) Parkinson disease: Qualifiers: Dyskinesia presence: without dyskinesia Fluctuating manifestations: without fluctuating manifestations Qualified Code(s): G20.A1 - Parkinson's disease without dyskinesia, without mention of fluctuations Code(s): G20 - Parkinson's disease Status: Acute (3) Dementia: Qualifiers: Dementia type: Alzheimer's Alzheimer's disease onset: unspecified onset Dementia severity: moderate Dementia behavioral or psychological symptom: without behavioral, psychotic, or mood disturbance or anxiety Qualified Code(s): G30.9 - Alzheimer's disease, unspecified; F02.B0 - Dementia in other diseases classified elsewhere, moderate, without behavioral disturbance, psychotic disturbance, mood disturbance, and anxiety Code(s): F03.90 - Unspecified dementia, unspecified severity, without behavioral disturbance, psychotic disturbance, mood disturbance, and anxiety Status: Acute (4) Agitation: Code(s): R45.1 - Restlessness and agitation Status: Acute (5) Essential (primary) hypertension: Code(s): I10 - Essential (primary) hypertension Status: Chronic (6) CAD in [place] artery: Code(s): I25.10 - Atherosclerotic heart disease of [place] coronary artery without angina pectoris Status: Acute (7) PAD (peripheral artery disease): Code(s): I73.9 - Peripheral vascular disease, unspecified Status: Acute (8) Recurrent falls: Code(s): R29.6 - Repeated falls Status: Acute Subjective Date/time seen: 11/23/24 16:45 Interval history: Remains comfortable on current regimen Review of Systems Review of Systems: ROS unobtainable: Yes unobtainable due to medical condition Exam Narrative: HEENT: pharyngeal mucosa dry and intact NECK: No JVD CHEST: Coarse BS, mildly tachypneic HEART: NL S1/S2, regular, no murmur ABDOMEN: BS hypoactive, soft, nontender, no mass, no bruits EXTREMITIES: No edema NEUROLOGIC: CN symmetric to inspection. MUSCULOSKELETAL: No gross deformity to visual inspection PSYCH: Unresponsive to verbal or tactile stimuli Objective Data Vital Signs Vital Signs: Vital Signs - 24 hr 11/22/24 20:00 11/22/24 20:00 11/23/24 01:18 Temperature 98.4 F Pulse Rate 91 Respiratory Rate 12 16 Blood Pressure 89/45 L Pulse Oximetry 91 Oxygen Delivery Room Air 11/23/24 01:18 11/23/24 08:00 11/23/24 08:00 Temperature 96.1 F L Pulse Rate 97 Respiratory Rate 16 10 L Blood Pressure 93/51 L Pulse Oximetry 88 L Oxygen Delivery Room Air Intake/Output Intake/Output: Intake & Output 11/20/24 11/21/24 11/22/24 11/23/24 23:59 23:59 23:59 23:59 Intake Total 99.2 187.5 Output Total 150 250 125 Balance -150 -150.8 62.5 Meds/Results Medications: Active Medications Generic Name Dose Route Start Last Admin Trade Name Freq PRN Reason Stop Dose Admin Acetaminophen 650 mg 11/21/24 16:46 Acetaminophen 650 Mg Suppository RECTAL Q4H PRN Fever Artificial Tears 1 drop 11/21/24 22:00 11/23/24 13:30 Artificial Tears Ophth Soln 15 Ml Bottle EACH EYE 1 drop Q8HR DOROTA Administration Artificial Tears 1 drop 11/21/24 16:44 11/23/24 13:44 Artificial Tears Ophth Soln 15 Ml Bottle EACH EYE 1 drop PRN PRN Administration Dry Eye(s) Bisacodyl 10 mg 04/13/25 16:46 Bisacodyl 10 Mg Suppository RECTAL QAM PRN Constipation Glycopyrrolate 0.1 mg 11/21/24 16:45 Glycopyrrolate Inj (*Sp) 0.2 Mg/Ml Vial IV PUSH Q4H PRN EXCESS SECRETIONS Morphine Sulfate 50 mg/ Sodium 100 mls @ 8 mls/hr 11/21/24 16:45 11/23/24 13:58 Chloride IV CONT 4 mg/hr .[id number] DOROTA 8 mls/hr Administration 4 MG/HR Lorazepam 2 mg 11/21/24 16:44 11/22/24 10:09 Lorazepam Inj (*Crx) 2 Mg/Ml Vial IV PUSH 2 mg Q2H PRN Administration RESTLESSNESS/AGITATION Lorazepam 2 mg 11/22/24 13:00 11/23/24 13:43 Lorazepam Inj (*Crx) 2 Mg/Ml Vial IV PUSH 2 mg Q4HR DOROTA Administration Morphine Sulfate 4 mg 11/21/24 16:41 11/22/24 10:10 Morphine Sulfate (*Crx) 4 Mg/Ml Inj IV PUSH 4 mg Q2H PRN Administration Pain Prochlorperazine Edisylate 10 mg 11/21/24 16:45 Prochlorperazine Edisylate 10 Mg/2 Ml Vial IV PUSH Q4H PRN Nausea And Vomiting
[2024-11-23 20:00] VITALS: BP 108/44; PULSE 101; RESP 8; TEMP 36.1; O2SAT 85
[2024-11-24] MEDS: LORazepam INJ (*CRX) 2 MG/ML VIAL IV PUSH ×6 (01:10→20:45)
[2024-11-24] MEDS: MORPHINE SULFATE INJ (*CRX) 50 MG in SODIUM CHLORIDE 0.9% IV 95 ML 8 MG IV CONT ×2 (03:51→16:23)
--- NOTE | 2024-11-24 10:04 | PCWOUND ---
WOCN NOTE Spoke with patient about pressure injury on L heel. Patient is currently admitted under hospice care. No intervention needed from wound care. RN to apply a foam border dressing to heel for comfort measures and change as needed.
[2024-11-24] MEDS: GLYCOPYRROLATE INJ (*SP) 0.2 MG/ML VIAL 0.1 MG IV PUSH (10:22)
[2024-11-24 12:09] VITALS: BP 93/47; PULSE 121; RESP 22; TEMP 36.8; O2SAT 54
[2024-11-24] MEDS: ARTIFICIAL TEARS OPHTH SOLN 15 ML BOTTLE 1 DROP EACH EYE ×2 (14:35→20:51)
[2024-11-24 20:00] VITALS: BP 100/49; PULSE 124; RESP 12; RESP 20; TEMP 39.4; O2SAT 44
[2024-11-24] MEDS: ACETAMINOPHEN 650 MG SUPPOSITORY RECTAL (21:51)
[2024-11-24] MEDS: MORPHINE SULFATE (*CRX) 4 MG/ML INJ IV PUSH (21:58)
--- NOTE | 2024-11-24 23:06 | P.PNIM_ITS ---
Progress Note: A&P Assessment and Plan (1) Hospice care: Code(s): Z51.5 - Encounter for palliative care Status: Acute Assessment and Plan: * Meet inpatient hospice criteria acquired continuous IV morphine and scheduled IV Ativan for control of presumed pain and agitation * PRN palliative regimen ordered * 12/02/2024 required increased morphine due to dyspnea * 12/03/2024 declining with hypotension, hypoxia, hypothermia, and too unstable to transfer * 12/04/2024 now febrile with temp up to 102.6 with condition rapidly evolving and too unstable to transfer (2) Parkinson disease: Qualifiers: Dyskinesia presence: without dyskinesia Fluctuating manifestations: without fluctuating manifestations Qualified Code(s): G20.A1 - Parkinson's disease without dyskinesia, without mention of fluctuations Code(s): G20 - Parkinson's disease Status: Acute (3) Dementia: Qualifiers: Dementia type: Alzheimer's Alzheimer's disease onset: unspecified onset Dementia severity: moderate Dementia behavioral or psychological symptom: without behavioral, psychotic, or mood disturbance or anxiety Qualified Code(s): G30.9 - Alzheimer's disease, unspecified; F02.B0 - Dementia in other diseases classified elsewhere, moderate, without behavioral disturbance, psychotic disturbance, mood disturbance, and anxiety Code(s): F03.90 - Unspecified dementia, unspecified severity, without behavioral disturbance, psychotic disturbance, mood disturbance, and anxiety Status: Acute (4) Agitation: Code(s): R45.1 - Restlessness and agitation Status: Acute (5) Essential (primary) hypertension: Code(s): I10 - Essential (primary) hypertension Status: Chronic (6) CAD in [place] artery: Code(s): I25.10 - Atherosclerotic heart disease of [place] coronary artery without angina pectoris Status: Acute (7) PAD (peripheral artery disease): Code(s): I73.9 - Peripheral vascular disease, unspecified Status: Acute (8) Recurrent falls: Code(s): R29.6 - Repeated falls Status: Acute Subjective Date/time seen: 11/24/24 23:06 Interval history: Remains comfortable on current regimen. Review of Systems Review of Systems: ROS unobtainable: Yes unobtainable due to medical condition Exam Narrative: Unresponsive. Respirations non-labored. Objective Data Vital Signs Vital Signs: Vital Signs - 24 hr 11/24/24 08:00 11/24/24 12:09 11/24/24 20:00 Temperature 98.2 F Pulse Rate 121 H Respiratory Rate 22 H 12 Blood Pressure 93/47 L Pulse Oximetry 54 L 44 L Oxygen Delivery Room Air Room Air 11/24/24 20:00 Temperature 102.9 F H Pulse Rate 124 H Respiratory Rate 20 Blood Pressure 100/49 L Pulse Oximetry 44 L Oxygen Delivery Intake/Output Intake/Output: Intake & Output 11/21/24 11/22/24 11/23/24 11/24/24 23:59 23:59 23:59 23:59 Intake Total 99.2 187.5 200 Output Total 150 250 275 350 Balance -150 -150.8 -87.5 -150 Meds/Results Medications: Active Medications Generic Name Dose Route Start Last Admin Trade Name Freq PRN Reason Stop Dose Admin Acetaminophen 650 mg 11/21/24 16:46 11/24/24 21:51 Acetaminophen 650 Mg Suppository RECTAL 650 mg Q4H PRN Administration Fever Artificial Tears 1 drop 11/21/24 22:00 11/24/24 20:51 Artificial Tears Ophth Soln 15 Ml Bottle EACH EYE 1 drop Q8HR [place] Administration Artificial Tears 1 drop 11/21/24 16:44 11/23/24 13:44 Artificial Tears Ophth Soln 15 Ml Bottle EACH EYE 1 drop PRN PRN Administration Dry Eye(s) Bisacodyl 10 mg 11/21/24 16:46 Bisacodyl 10 Mg Suppository RECTAL QAM PRN Constipation Glycopyrrolate 0.1 mg 11/21/24 16:45 11/24/24 10:22 Glycopyrrolate Inj (*Sp) 0.2 Mg/Ml Vial IV PUSH 0.1 mg Q4H PRN Administration EXCESS SECRETIONS Morphine Sulfate 50 mg/ Sodium 100 mls @ 8 mls/hr 11/21/24 16:45 11/24/24 16:23 Chloride IV CONT 4 mg/hr .[id number] [place] 8 mls/hr Administration 4 MG/HR Lorazepam 2 mg 11/21/24 16:44 11/22/24 10:09 Lorazepam Inj (*Crx) 2 Mg/Ml Vial IV PUSH 2 mg Q2H PRN Administration RESTLESSNESS/AGITATION Lorazepam 2 mg 11/22/24 13:00 11/24/24 20:45 Lorazepam Inj (*Crx) 2 Mg/Ml Vial IV PUSH 2 mg Q4HR [place] Administration Morphine Sulfate 4 mg 11/21/24 16:41 11/24/24 21:58 Morphine Sulfate (*Crx) 4 Mg/Ml Inj IV PUSH 4 mg Q2H PRN Administration Pain Prochlorperazine Edisylate 10 mg 11/21/24 16:45 Prochlorperazine Edisylate 10 Mg/2 Ml Vial IV PUSH Q4H PRN Nausea And Vomiting
[2024-11-25] MEDS: LORazepam INJ (*CRX) 2 MG/ML VIAL IV PUSH ×5 (01:59→17:55)
[2024-11-25] MEDS: MORPHINE SULFATE INJ (*CRX) 50 MG in SODIUM CHLORIDE 0.9% IV 95 ML 8 MG IV CONT ×2 (05:48→17:18)
[2024-11-25] MEDS: ARTIFICIAL TEARS OPHTH SOLN 15 ML BOTTLE 1 DROP EACH EYE ×3 (05:52→23:06)
[2024-11-25 08:17] VITALS: TEMP 38.2
[2024-11-25] MEDS: ACETAMINOPHEN 650 MG SUPPOSITORY RECTAL (08:17)
[2024-11-25 09:15] VITALS: TEMP 37.9
[2024-11-25] MEDS: MORPHINE SULFATE (*CRX) 4 MG/ML INJ IV PUSH (10:38)
[2024-11-25 14:00] VITALS: BP 69/39; PULSE 123; RESP 10; TEMP 37.6; O2SAT 80
--- NOTE | 2024-11-25 18:13 | P.PNIM_ITS ---
Progress Note: A&P Assessment and Plan (1) Hospice care: Code(s): Z51.5 - Encounter for palliative care Status: Acute Assessment and Plan: * Meet inpatient hospice criteria acquired continuous IV morphine and scheduled IV Ativan for control of presumed pain and agitation * PRN palliative regimen ordered * 12/02/2024 required increased morphine due to dyspnea * 12/03/2024 declining with hypotension, hypoxia, hypothermia, and too unstable to transfer * 12/04/2024 now febrile with temp up to 102.6 with condition rapidly evolving and too unstable to transfer * 12/05/2024 remains febrile and now hypotensive and hypoxic with bp 60s, sats 80s, too unstable to transfer (2) Parkinson disease: Qualifiers: Dyskinesia presence: without dyskinesia Fluctuating manifestations: without fluctuating manifestations Qualified Code(s): G20.A1 - Parkinson's disease without dyskinesia, without mention of fluctuations Code(s): G20 - Parkinson's disease Status: Acute (3) Dementia: Qualifiers: Dementia type: Alzheimer's Alzheimer's disease onset: unspecified onset Dementia severity: moderate Dementia behavioral or psychological symptom: without behavioral, psychotic, or mood disturbance or anxiety Qualified Code(s): G30.9 - Alzheimer's disease, unspecified; F02.B0 - Dementia in other diseases classified elsewhere, moderate, without behavioral disturbance, psychotic disturbance, mood disturbance, and anxiety Code(s): F03.90 - Unspecified dementia, unspecified severity, without behavioral disturbance, psychotic disturbance, mood disturbance, and anxiety Status: Acute (4) Agitation: Code(s): R45.1 - Restlessness and agitation Status: Acute (5) Essential (primary) hypertension: Code(s): I10 - Essential (primary) hypertension Status: Chronic (6) CAD in [place] artery: Code(s): I25.10 - Atherosclerotic heart disease of [place] coronary artery without angina pectoris Status: Acute (7) PAD (peripheral artery disease): Code(s): I73.9 - Peripheral vascular disease, unspecified Status: Acute (8) Recurrent falls: Code(s): R29.6 - Repeated falls Status: Acute Subjective Date/time seen: 11/25/24 18:13 Interval history: Remains comfortable on current regimen. Review of Systems Review of Systems: ROS unobtainable: Yes unobtainable due to medical condition Exam Narrative: Unresponsive. Respirations non-labored. Objective Data Vital Signs Vital Signs: Vital Signs - 24 hr 11/24/24 20:00 11/24/24 20:00 11/25/24 08:00 Temperature 102.9 F H Pulse Rate 124 H Respiratory Rate 12 20 Blood Pressure 100/49 L Pulse Oximetry 44 L 44 L Oxygen Delivery Room Air Room Air 11/25/24 08:17 11/25/24 09:15 11/25/24 12:26 Temperature 100.8 F H 100.2 F H Pulse Rate Respiratory Rate Blood Pressure Pulse Oximetry Oxygen Delivery Room Air 11/25/24 14:00 Temperature 99.7 F H Pulse Rate 123 H Respiratory Rate 10 L Blood Pressure 69/39 L Pulse Oximetry 80 L Oxygen Delivery Intake/Output Intake/Output: Intake & Output 11/22/24 11/23/24 11/24/24 11/25/24 23:59 23:59 23:59 23:59 Intake Total 99.2 187.5 200 192 Output Total 250 275 350 300 Balance -150.8 -87.5 -150 -108 Meds/Results Medications: Active Medications Generic Name Dose Route Start Last Admin Trade Name Freq PRN Reason Stop Dose Admin Acetaminophen 650 mg 11/21/24 16:46 11/25/24 08:17 Acetaminophen 650 Mg Suppository RECTAL 650 mg Q4H PRN Administration Fever Artificial Tears 1 drop 11/21/24 22:00 11/25/24 17:12 Artificial Tears Ophth Soln 15 Ml Bottle EACH EYE 1 drop Q8HR [place] Administration Artificial Tears 1 drop 11/21/24 16:44 11/23/24 13:44 Artificial Tears Ophth Soln 15 Ml Bottle EACH EYE 1 drop PRN PRN Administration Dry Eye(s) Bisacodyl 10 mg 11/21/24 16:46 Bisacodyl 10 Mg Suppository RECTAL QAM PRN Constipation Glycopyrrolate 0.1 mg 11/21/24 16:45 11/24/24 10:22 Glycopyrrolate Inj (*Sp) 0.2 Mg/Ml Vial IV PUSH 0.1 mg Q4H PRN Administration EXCESS SECRETIONS Morphine Sulfate 50 mg/ Sodium 100 mls @ 8 mls/hr 11/21/24 16:45 11/25/24 17:18 Chloride IV CONT 4 mg/hr .[id number] [place] 8 mls/hr Administration 4 MG/HR Lorazepam 2 mg 11/21/24 16:44 11/22/24 10:09 Lorazepam Inj (*Crx) 2 Mg/Ml Vial IV PUSH 2 mg Q2H PRN Administration RESTLESSNESS/AGITATION Lorazepam 2 mg 11/22/24 13:00 11/25/24 17:55 Lorazepam Inj (*Crx) 2 Mg/Ml Vial IV PUSH 2 mg Q4HR [place] Administration Morphine Sulfate 4 mg 11/21/24 16:41 11/25/24 10:38 Morphine Sulfate (*Crx) 4 Mg/Ml Inj IV PUSH 4 mg Q2H PRN Administration Pain Prochlorperazine Edisylate 10 mg 11/21/24 16:45 Prochlorperazine Edisylate 10 Mg/2 Ml Vial IV PUSH Q4H PRN Nausea And Vomiting
[2024-11-25 20:50] VITALS: BP 87/34; PULSE 121; RESP 15; TEMP 36.6; O2SAT 66
[2024-11-26] MEDS: LORazepam INJ (*CRX) 2 MG/ML VIAL IV PUSH ×3 (01:38→16:45)
[2024-11-26] MEDS: ARTIFICIAL TEARS OPHTH SOLN 15 ML BOTTLE 1 DROP EACH EYE ×3 (05:45→23:32)
[2024-11-26 05:48] VITALS: PULSE 99; RESP 6
[2024-11-26 07:20] VITALS: PULSE 99; RESP 6
[2024-11-26] MEDS: MORPHINE SULFATE INJ (*CRX) 50 MG in SODIUM CHLORIDE 0.9% IV 95 ML 8 MG IV CONT ×2 (07:20→18:35)
[2024-11-26 14:26] VITALS: BP 60/34; PULSE 112; RESP 16; TEMP 36.7; O2SAT 81
--- NOTE | 2024-11-26 15:53 | P.PNIM_ITS ---
Progress Note: A&P Assessment and Plan (1) Hospice care: Code(s): Z51.5 - Encounter for palliative care Status: Acute Assessment and Plan: * Meet inpatient hospice criteria acquired continuous IV morphine and scheduled IV Ativan for control of presumed pain and agitation * PRN palliative regimen ordered * 12/02/2024 required increased morphine due to dyspnea * 12/03/2024 declining with hypotension, hypoxia, hypothermia, and too unstable to transfer * 12/04/2024 now febrile with temp up to 102.6 with condition rapidly evolving and too unstable to transfer * 12/05/2024 remains febrile and now hypotensive and hypoxic with bp 60s, sats 80s, too unstable to transfer * 12/06/2024 remains hypotensive and hypoxic, too unstable to transfer (2) Parkinson disease: Qualifiers: Dyskinesia presence: without dyskinesia Fluctuating manifestations: without fluctuating manifestations Qualified Code(s): G20.A1 - Parkinson's disease without dyskinesia, without mention of fluctuations Code(s): G20 - Parkinson's disease Status: Acute (3) Dementia: Qualifiers: Dementia type: Alzheimer's Alzheimer's disease onset: unspecified onset Dementia severity: moderate Dementia behavioral or psychological symptom: without behavioral, psychotic, or mood disturbance or anxiety Qualified Code(s): G30.9 - Alzheimer's disease, unspecified; F02.B0 - Dementia in other diseases classified elsewhere, moderate, without behavioral disturbance, psychotic disturbance, mood disturbance, and anxiety Code(s): F03.90 - Unspecified dementia, unspecified severity, without behavioral disturbance, psychotic disturbance, mood disturbance, and anxiety Status: Acute (4) Agitation: Code(s): R45.1 - Restlessness and agitation Status: Acute (5) Essential (primary) hypertension: Code(s): I10 - Essential (primary) hypertension Status: Chronic (6) CAD in [place] artery: Code(s): I25.10 - Atherosclerotic heart disease of [place] coronary artery without angina pectoris Status: Acute (7) PAD (peripheral artery disease): Code(s): I73.9 - Peripheral vascular disease, unspecified Status: Acute (8) Recurrent falls: Code(s): R29.6 - Repeated falls Status: Acute Subjective Date/time seen: 11/26/24 15:53 Interval history: Remains comfortable on current regimen. Review of Systems Review of Systems: ROS unobtainable: Yes unobtainable due to medical condition Exam Narrative: Unresponsive. Respirations non-labored. Objective Data Vital Signs Vital Signs: Vital Signs - 24 hr 11/25/24 20:50 11/26/24 05:48 11/26/24 07:20 Temperature 97.8 F Pulse Rate 121 H 99 99 Respiratory Rate 15 6 L 6 L Blood Pressure 87/34 L Pulse Oximetry 66 L Oxygen Delivery 11/26/24 08:00 11/26/24 14:26 Temperature 98.1 F Pulse Rate 112 H Respiratory Rate 16 Blood Pressure 60/34 L Pulse Oximetry 81 L Oxygen Delivery Room Air Intake/Output Intake/Output: Intake & Output 11/23/24 11/24/24 11/25/24 11/26/24 23:59 23:59 23:59 23:59 Intake Total 187.5 200 192 150 Output Total 275 350 350 100 Balance -87.5 -150 -158 50 Meds/Results Medications: Active Medications Generic Name Dose Route Start Last Admin Trade Name Freq PRN Reason Stop Dose Admin Acetaminophen 650 mg 11/21/24 16:46 11/25/24 08:17 Acetaminophen 650 Mg Suppository RECTAL 650 mg Q4H PRN Administration Fever Artificial Tears 1 drop 11/21/24 22:00 11/26/24 14:56 Artificial Tears Ophth Soln 15 Ml Bottle EACH EYE 1 drop Q8HR [place] Administration Artificial Tears 1 drop 11/21/24 16:44 11/23/24 13:44 Artificial Tears Ophth Soln 15 Ml Bottle EACH EYE 1 drop PRN PRN Administration Dry Eye(s) Bisacodyl 10 mg 11/21/24 16:46 Bisacodyl 10 Mg Suppository RECTAL QAM PRN Constipation Glycopyrrolate 0.1 mg 11/21/24 16:45 11/24/24 10:22 Glycopyrrolate Inj (*Sp) 0.2 Mg/Ml Vial IV PUSH 0.1 mg Q4H PRN Administration EXCESS SECRETIONS Morphine Sulfate 50 mg/ Sodium 100 mls @ 8 mls/hr 11/21/24 16:45 11/26/24 07:20 Chloride IV CONT 4 mg/hr .[id number] DOR[place] 8 mls/hr Administration 4 MG/HR Lorazepam 2 mg 11/21/24 16:44 11/22/24 10:09 Lorazepam Inj (*Crx) 2 Mg/Ml Vial IV PUSH 2 mg Q2H PRN Administration RESTLESSNESS/AGITATION Lorazepam 2 mg 11/22/24 13:00 11/26/24 14:55 Lorazepam Inj (*Crx) 2 Mg/Ml Vial IV PUSH Not Given Q4HR [place] Morphine Sulfate 4 mg 11/21/24 16:41 11/25/24 10:38 Morphine Sulfate (*Crx) 4 Mg/Ml Inj IV PUSH 4 mg Q2H PRN Administration Pain Prochlorperazine Edisylate 10 mg 11/21/24 16:45 Prochlorperazine Edisylate 10 Mg/2 Ml Vial IV PUSH Q4H PRN Nausea And Vomiting
[2024-11-26 20:00] VITALS: BP 70/40; PULSE 113; RESP 18; TEMP 38.3; O2SAT 82
[2024-11-26] MEDS: ACETAMINOPHEN 650 MG SUPPOSITORY RECTAL (20:29)
[2024-11-26 23:26] VITALS: TEMP 37.2
[2024-11-27] MEDS: LORazepam INJ (*CRX) 2 MG/ML VIAL IV PUSH (01:30)
--- NOTE | 2024-11-27 11:07 | P.DN_ITS ---
Discharge Summary Date and Time Date of : 11/27/24 Time of : 04:28 Provider Pronounced By: 2 RNs Name of First RN That Pronounced: ELIAZAR Name of Second RN That Pronounced: SANDI Probable Cause of Probable Cause of : Parkinson disease Summary Hospital Course: Admitted to inpatient hospice service. Medications were titrated to comfort. Mr. Shah peacefully. Additional Data Confirmation of as documented by pronouncing clinician: Pupillary Reflex, Palpable Pulses, Response to Stimuli, Heart Tones and Breath Sounds Name of Provider Notified: KIERA Time Provider Notified: 04:42 Provider Requests Autopsy: No Funeral Professional Notified: Yes Date [facility] Notified of : 11/27/24 Time [facility] Notified of : 04:38
== END 2024-11-27 07:10 | disposition expired | DRG 951 ==
PROVIDERS: Admitting Provider Internal Medicine; PCP Family Medicine; Visit Provider Internal Medicine
DX: Z51.5 Encounter for palliative care (principal); F03.911 Unspecified dementia, unspecified severity, with agitation; R09.02 Hypoxemia; G20.A1 Parkinson's disease without dyskinesia, without mention of fluctuations; I10 Essential (primary) hypertension; I25.10 Atherosclerotic heart disease of native coronary artery without angina pectoris; I73.9 Peripheral vascular disease, unspecified; R29.6 Repeated falls
CPT/HCPCS: A9270; J1596; J2060; J2270